=== PATIENT | female | born 1940 | race Caucasian/White ===

== ENCOUNTER 2020-09-29 14:01 | Outpatient (REF) | payer SELFPAY | END 2020-09-29 14:02 | disposition home or self-care (01) | LOC: HO.HAP 14:01 | PROVIDERS: Visit Provider Pediatrics | DX: Z46.1 Encounter for fitting and adjustment of hearing aid (principal) | CPT/HCPCS: V5267 ==

== ENCOUNTER 2021-07-12 08:52 | Outpatient (REF) | payer SELFPAY | END 2021-07-12 08:53 | disposition home or self-care (01) | LOC: HO.HAP 08:52 | PROVIDERS: Visit Provider Pediatrics | DX: Z46.2 Encounter for fitting and adjustment of other devices related to nervous system and special senses (principal) | CPT/HCPCS: V5299 ==

== ENCOUNTER 2023-07-19 08:28 | Emergency (ER) | payer MEDICARE, OTHER, SELFPAY ==
--- NOTE | ~2023-07-19 | XR_ITS ---
EXAMINATION: XR TIBIA AND FIBULA, RIGHT CLINICAL INFORMATION: Leg redness and pain COMPARISON: None available. TECHNIQUE: AP and lateral views of the right tibia and fibula were obtained. FINDINGS: Moderate osteopenia. No fracture or destructive process. Small phleboliths in the adjacent soft tissues. There is degenerative change observed at the tibiotalar junction. The knee and ankle joints are not fully included however on this study. XR/XR tibia fibula RT 2V IMPRESSION: Unremarkable exam.
--- NOTE | ~2023-07-19 | US_ITS ---
EXAMINATION: US VENOUS ULTRASOUND WITH DOPPLER LOWER EXTREMITY, RIGHT CLINICAL INFORMATION: Pain. COMPARISON: None available. TECHNIQUE: Ultrasound of the deep veins is performed from the hip to the calf with compression sonography and color and pulse Doppler assessment. Spectral analysis with color-flow imaging is performed. FINDINGS: There is normal venous compression and respiratory variation and augmented flow. The visualized common femoral vein, superficial femoral vein, profunda femoral vein, popliteal vein, and the trifurcation region shows no evidence of deep venous thrombosis. There is no significant popliteal fossa cyst. Small joint effusion noted. If the patient's symptoms persist, followup ultrasound in 5 days 7 days might be of value to exclude proximal propagation from a non-visualized calf vein. US/US venous duplex LE RT IMPRESSION: No DVT demonstrated in the right lower extremity.
--- NOTE | 2023-07-19 08:41 | ED_ITS ---
HPI - Extremity Problem General Chief complaint: Extremity Injury, Lower Stated complaint: Blood clot (?) in leg Time Seen by Provider: 07/19/23 08:30 History of Present Illness HPI Narrative: Patient is an 83-year-old female with a history of a pacemaker history of atrial fibrillation currently on Xarelto compliant with medication presented today with having increasing pain to the right leg. Moderate swelling. Patient from home. History of varicose vein in that side. History of vein stripping on that side Many years ago. No chest pain or shortness of breath no dizziness no nausea no vomiting no systemic complaints. No trauma. Related Data Allergies Allergy/AdvReac Type Severity Reaction Status Date / Time No Known Allergies Allergy Unverified 05/21/20 19:35 [No Known Allergies*] Review of Systems 2 Review of Systems: No fever no chills no chest pain or shortness of breath positive leg pain Yes all other systems are reviewed and are negative [facility] Social History Social History Advance Directives: No Advance Directives Information Provided: Yes Physical Exam 2 Vital Signs: Vital Signs: Last Vital Signs Temp 98.0 F 07/19/23 09:56 Pulse 74 07/19/23 09:56 Resp 15 07/19/23 09:56 BP 139/76 07/19/23 09:56 Pulse Ox 97 07/19/23 09:56 O2 Del Method Room Air 07/19/23 09:56 BMI result Body Mass Index 27.3 Appearance: Alert. Oriented X3. No acute distress. Eyes: Pupils equal, round and reactive to light. ENT: Pharynx normal. Neck: Normal inspection. Neck supple. No lymph nodes noted. No crepitus CVS: Normal heart rate and rhythm. Pulses normal. Normal S1 and S2 Respiratory: No respiratory distress. Breath sounds normal. No Wheezing. No rales Abdomen: Soft and nontender. No rigidity. No distention. good BS x4 Skin: Skin warm and dry. Normal skin color. Normal skin turgor. Extremities: No lower extremity edema. Neurovascular intact to all extremities. No Lacerations. No Rash. Positive varicose vein noted over in bilateral leg distal pulses intact sensation intact. No rash noted Neuro: Oriented X 3. No motor deficit. No sensory deficit. Moving all extermities. No slurred speech Medical Decision Making Medical Decision Making [facility] Narrative: Doppler of the lower extremity showed no evidence of DVT. In the setting of having atrial fibrillation on Xarelto unlikely to have DVT. Patient's INR slightly elevated showing patient compliance. X-ray of the leg did not show any acute evidence of fracture by my interpretation. I reviewed radiology's reading. Electrolytes unremarkable hemoglobin about baseline. Will discharge patient home close follow-up on an outpatient basis Differential Diagnosis Differential Diagnoses: The differential diagnosis associated with the presentation includes Fracture DVT sprain Admission/Observation Consideration of admission/observation: Escalation of care including admission/observation considered No need for admission Lab Data [facility] Lab Attestation statement: I reviewed the patient's lab results. 07/19/23 09:26 07/19/23 09:26 Labs: Lab Results 07/19/23 Range/Units 09:26 WBC 3.2 L (4.8-10.8) X10*3/uL RBC 3.91 L (4.20-5.50) X10*6/uL Hgb 11.9 L (12.0-16.0) g/dl Hct 35.8 L (37.0-47.0) % MCV 91.6 (80.0-98.0) fL MCH 30.4 (27.0-33.0) pg MCHC 33.2 (31.0-35.0) g/dl RDW 13.0 (11.0-16.0) % Plt Count 228 (160-400) X10*3/uL MPV 10.4 (9.4-12.3) fL Immature Gran % (Auto) 0.3 (0.0-0.4) % Neut % (Auto) 52.1 (45-73) % Lymph % (Auto) 30.9 (20-40) % Scott % (Auto) 11.6 H (2-11) % Eos % (Auto) 3.8 (0-4) % Baso % (Auto) 1.3 (0-2) % Lymph # (Auto) 1.0 L (1.2-4.9) X10*3/uL Scott # (Auto) 0.4 (0.1-1.2) X10*3/uL Eos # (Auto) 0.1 (0.0-0.4) X10*3/uL Baso # (Auto) 0.0 (0.0-0.2) X10*3/uL Abs Immat Gran (auto) 0.01 (0.00-0.03) X10*3/uL Absolute Neuts (auto) 1.7 L (2.0-8.3) x10*3/uL Absolute Nucleated RBC 0.000 (0.0-0.012) X10*3/uL Nucleated RBC % (auto) 0.0 (0.0-0.2) /100WBC Smear Tech's Comments VERIFIED PT 18.2 H (11.1-13.3) SEC INR 1.5 H (0.9-1.1) Sodium 138 (135-145) mmol/L Potassium 4.5 (3.3-5.1) mmol/L Chloride 104 (96-108) mmol/L Carbon Dioxide 30 H (22-29) mmol/L Anion Gap 9 L (12-20) BUN 16 (9-16) mg/dL Creatinine 0.83 (0.5-1.4) mg/dL Estim Creat Clear Calc 54.6 Estimated GFR > 60 Random Glucose 81 (60-115) mg/dL Calcium 8.8 (8.4-10.2) mg/dL Independent Interpretation I performed an independent interpretation of an: Plain X-Ray (X-ray was negative) Radiology Impression Discussion of test interpretation with radiology: I have reviewed the radiologist's reading. Independent Historian Clinical information obtained from an independent historian. History obtained from or confirmed by: Other (Family) Chronic Conditions Atrial fibrillation Discharge Plan Discharge Clinical Impression: Acute leg pain Patient Disposition: Home, Self-Care Instructions: Leg Pain (ED) Referrals: Flex Roque MD [Primary Care Provider] - 07/21/23
[2023-07-19 09:00] VITALS: BP 143/72; PULSE 65; RESP 16; TEMP 36.8; O2SAT 97; BMI 27.3
[2023-07-19 09:40] LABS: Basophils Percent Auto 1.3 % (0-2); Eosinophils Absolute Auto 0.1 X10*3/uL (0.0-0.4); Eosinophils Percent Auto 3.8 % (0-4); Hematocrit 35.8 % (37.0-47.0); Hemoglobin 11.9 g/dl (12.0-16.0); Imm Gran Abs Auto 0.01 X10*3/uL (0.00-0.03); Imm Gran Pct Auto 0.3 % (0.0-0.4); Lymphocytes Percent Auto 30.9 % (20-40); MANUAL DIFF FLAG SCAN; Mean Corpuscular HGB Conc 33.2 g/dl (31.0-35.0); Mean Corpuscular Hemoglobin 30.4 pg (27.0-33.0); Mean Corpuscular Volume 91.6 fL (80.0-98.0); Mean Platelet Volume 10.4 fL (9.4-12.3); Monocytes Absolute Auto 0.4 X10*3/uL (0.1-1.2); Monocytes Percent Auto 11.6 % (2-11); Neutrophils Absolute Auto 1.7 x10*3/uL (2.0-8.3); Neutrophils Percent Auto 52.1 % (45-73); Platelet Count 228 X10*3/uL (160-400); Red Blood Count 3.91 X10*6/uL (4.20-5.50); SCAN SMEAR FLAG 1; White Blood Count 3.2 X10*3/uL (4.8-10.8)
[2023-07-19 09:47] LABS: INTERNATIONAL NORM RATIO 1.5 (0.9-1.1); Prothrombin Time 18.2 SEC (11.1-13.3)
[2023-07-19 09:49] LABS: Anion Gap 9 (12-20); Blood Urea Nitrogen 16 mg/dL (9-16); Calcium 8.8 mg/dL (8.4-10.2); Carbon Dioxide 30 mmol/L (22-29); Chloride 104 mmol/L (96-108); Creatinine Clr Calc Pharmacy 54.6; Estimated Glomerular Filt Rate > 60; Glucose Random 81 mg/dL (60-115); Potassium 4.5 mmol/L (3.3-5.1); Sodium 138 mmol/L (135-145)
[2023-07-19 09:56] VITALS: BP 139/76; PULSE 74; RESP 15; TEMP 36.7; O2SAT 97
[2023-07-19 10:02] LABS: SLIDE REVIEW VERIFIED
== END 2023-07-19 10:25 | disposition home or self-care (01) ==
PROVIDERS: Emergency Provider Emergency Medicine Emergency Medical Services; PCP Pediatrics
DX: M79.604 Pain in right leg (principal); R60.0 Localized edema; I48.91 Unspecified atrial fibrillation; Z79.01 Long term (current) use of anticoagulants; Z79.899 Other long term (current) drug therapy
CPT/HCPCS: 36415; 73590; 80048; 85025; 85610; 93971; 99283; 99284

== ENCOUNTER 2023-08-21 16:29 | Emergency (ER) | payer MEDICARE, OTHER, SELFPAY ==
--- NOTE | ~2023-08-21 | CT_ITS ---
EXAMINATION: CT HEAD WITHOUT CONTRAST CT FACIAL BONES WITHOUT CONTRAST CT CERVICAL SPINE WITHOUT CONTRAST CLINICAL INFORMATION: Fall. Head strike. COMPARISON: None available. TECHNIQUE: Contiguous axial imaging was performed of the head, facial bones and cervical spine vertex without intravenous administration of contrast. Sagittal and coronal reformatted images also obtained. This CT examination was performed using dose optimization techniques as appropriate, variously including the following: *Automated exposure control *Adjustment of mA and/or kV according to patient size (this includes techniques or standardized protocols for targeted exams where dose is matched to indication/reason for exam; i.e. extremities or head) *Use of iterative reconstruction technique DLP: 1188 mGy-cm FINDINGS: The lateral, third and fourth ventricles are normally outlined. The cortical sulci and basal cisterns are normally outlined as well. There is mild bilateral periventricular and central white matter diminished attenuation. There is no acute territorial defect, hemorrhage or midline shift. Calvarium: Intact. Facial bones: No fracture is seen. There is a left sphenoid sinus opacity with sinus sclerosis. There is right forehead soft tissue swelling with a laceration. The soft tissues are otherwise unremarkable. Cervical spine: The alignment is within normal limits. There is diffuse krwc-tj-naxubzuk cervical disc degenerative change with loss of disc space, endplate change and posterior osteophytes associated with diffuse facet osteoarthritic atrophy change with multilevel mild spinal canal and hngl-de-vtwfozlw neuroforaminal narrowing. No fracture. The soft tissues are unremarkable. The upper lung gonzalez are clear. CT/CT facial bones wo IV con IMPRESSION: 1. No acute intracranial finding. 2. There is mild bilateral periventricular and central white matter diminished attenuation, commonly associated with chronic microvascular ischemic disease. 3. There is right forehead soft tissue swelling with a laceration. No acute fracture or dislocation is seen. 4. There is chronic left sphenoid sinusitis. 5. There is diffuse cervical spondylosis. No acute fracture or spondylolisthesis is seen.
--- NOTE | ~2023-08-21 | CT_ITS ---
EXAMINATION: CT HEAD WITHOUT CONTRAST CT FACIAL BONES WITHOUT CONTRAST CT CERVICAL SPINE WITHOUT CONTRAST CLINICAL INFORMATION: Fall. Head strike. COMPARISON: None available. TECHNIQUE: Contiguous axial imaging was performed of the head, facial bones and cervical spine vertex without intravenous administration of contrast. Sagittal and coronal reformatted images also obtained. This CT examination was performed using dose optimization techniques as appropriate, variously including the following: *Automated exposure control *Adjustment of mA and/or kV according to patient size (this includes techniques or standardized protocols for targeted exams where dose is matched to indication/reason for exam; i.e. extremities or head) *Use of iterative reconstruction technique DLP: 1188 mGy-cm FINDINGS: The lateral, third and fourth ventricles are normally outlined. The cortical sulci and basal cisterns are normally outlined as well. There is mild bilateral periventricular and central white matter diminished attenuation. There is no acute territorial defect, hemorrhage or midline shift. Calvarium: Intact. Facial bones: No fracture is seen. There is a left sphenoid sinus opacity with sinus sclerosis. There is right forehead soft tissue swelling with a laceration. The soft tissues are otherwise unremarkable. Cervical spine: The alignment is within normal limits. There is diffuse jrdn-yy-ixdjjsfg cervical disc degenerative change with loss of disc space, endplate change and posterior osteophytes associated with diffuse facet osteoarthritic atrophy change with multilevel mild spinal canal and dkin-wn-eycrxfaa neuroforaminal narrowing. No fracture. The soft tissues are unremarkable. The upper lung gonzalez are clear. CT/CT head/brain wo IV con IMPRESSION: 1. No acute intracranial finding. 2. There is mild bilateral periventricular and central white matter diminished attenuation, commonly associated with chronic microvascular ischemic disease. 3. There is right forehead soft tissue swelling with a laceration. No acute fracture or dislocation is seen. 4. There is chronic left sphenoid sinusitis. 5. There is diffuse cervical spondylosis. No acute fracture or spondylolisthesis is seen.
--- NOTE | ~2023-08-21 | CT_ITS ---
EXAMINATION: CT HEAD WITHOUT CONTRAST CT FACIAL BONES WITHOUT CONTRAST CT CERVICAL SPINE WITHOUT CONTRAST CLINICAL INFORMATION: Fall. Head strike. COMPARISON: None available. TECHNIQUE: Contiguous axial imaging was performed of the head, facial bones and cervical spine vertex without intravenous administration of contrast. Sagittal and coronal reformatted images also obtained. This CT examination was performed using dose optimization techniques as appropriate, variously including the following: *Automated exposure control *Adjustment of mA and/or kV according to patient size (this includes techniques or standardized protocols for targeted exams where dose is matched to indication/reason for exam; i.e. extremities or head) *Use of iterative reconstruction technique DLP: 1188 mGy-cm FINDINGS: The lateral, third and fourth ventricles are normally outlined. The cortical sulci and basal cisterns are normally outlined as well. There is mild bilateral periventricular and central white matter diminished attenuation. There is no acute territorial defect, hemorrhage or midline shift. Calvarium: Intact. Facial bones: No fracture is seen. There is a left sphenoid sinus opacity with sinus sclerosis. There is right forehead soft tissue swelling with a laceration. The soft tissues are otherwise unremarkable. Cervical spine: The alignment is within normal limits. There is diffuse eqgp-jr-jejlzcjh cervical disc degenerative change with loss of disc space, endplate change and posterior osteophytes associated with diffuse facet osteoarthritic atrophy change with multilevel mild spinal canal and axrm-oc-zdmdfghw neuroforaminal narrowing. No fracture. The soft tissues are unremarkable. The upper lung gonzalez are clear. CT/CT cervical spine wo IV con IMPRESSION: 1. No acute intracranial finding. 2. There is mild bilateral periventricular and central white matter diminished attenuation, commonly associated with chronic microvascular ischemic disease. 3. There is right forehead soft tissue swelling with a laceration. No acute fracture or dislocation is seen. 4. There is chronic left sphenoid sinusitis. 5. There is diffuse cervical spondylosis. No acute fracture or spondylolisthesis is seen.
[2023-08-21 16:37] VITALS: BP 170/90; PULSE 65; O2SAT 100
[2023-08-21 16:46] VITALS: BP 170/71; PULSE 62; RESP 18; TEMP 36.6; O2SAT 95; BMI 25.5
[2023-08-21 16:47] VITALS: BP 170/71; PULSE 59; RESP 18; TEMP 36.5; O2SAT 98; BMI 25.5
--- NOTE | 2023-08-21 16:55 | PC.NURSE ---
PT BIBA PT states she slipped and fell while throwing a ball with her dog. + head strike, No LOC, laceration to right eyebrow- bleeding controlled at this time. PT on blood thinner and in a c-collar. Informed CAITLYN of traige information. waiting new orders.
--- NOTE | 2023-08-21 16:58 | ECG_ITS ---
Test Reason : FALL Blood Pressure : / mmHG Vent. Rate : 083 BPM Atrial Rate : 083 BPM P-R Int : 160 ms QRS Dur : 094 ms QT Int : 340 ms P-R-T Axes : 074 -33 037 degrees QTc Int : 399 ms Normal sinus rhythm Left axis deviation Abnormal ECG When compared with ECG of 20-JUL-2018 14:36, Vent. rate has increased BY 28 BPM QT has shortened Referred By: Gita Archer Electronically Signed By:JOJO NOLASCO MD
--- NOTE | 2023-08-21 17:03 | ED_ITS ---
HPI - Fall General Chief Complaint: Fall Stated Complaint: FALL HEAD LAC + THINNERS Time Seen by Provider: 08/21/23 16:59 Source: patient and EMS Mode of arrival: EMS Limitations: no limitations History of Present Illness HPI Narrative: Patient is an 83-year-old female who presents emergency department via EMS after an unwitnessed fall from a standing position with head strike onto the cement. She states that she was attempting to play fetch with her dog outside, she attempted to remove the ball from a wand of some sort, and upon pulling she lost her balance resulting in the fall. She reports a log-standing history of balance issues . Patient used her life alert button and EMS was able to help her, placed in hard cervical spine collar. There was reportedly no loss of consciousness. She is anticoagulated with Xarelto due to A-fib. Laceration to the right eyebrow, small amount of active bleeding, with localized pain. Daughters present at bedside at this time, reports that patient is a reliable historian. Related Data Previous Rx's Medication Instructions Recorded cephalexin 500 mg capsule 500 mg PO QID #27 caps 08/21/23 Allergies Allergy/AdvReac Type Severity Reaction Status Date / Time No Known Allergies Allergy Unverified 08/21/23 16:41 Review of Systems 2 Review of Systems: Yes all other systems are reviewed and are negative PMFSH Past Medical History Attestation statement: The following information was validated with the patient. Source: old records reviewed Social History Social History Advance Directives: Yes Advance Directives on File: No Physical Exam 2 Vital Signs: Vital Signs: Last Vital Signs Temp 97.7 F 08/21/23 16:47 Pulse 59 08/21/23 16:47 Resp 18 08/21/23 16:47 BP 170/71 H 08/21/23 16:47 Pulse Ox 98 08/21/23 16:47 O2 Del Method Room Air 08/21/23 16:47 BMI result Body Mass Index 25.5 Appearance: Alert.?Oriented to person, place and time. No acute distress.?Normal affect. Head: Normocephalic. 7cm linear laceration above right brow. Eyes: Pupils equal, round and reactive to light. EOMI. Conjunctiva and sclera normal? No Ballard sign noted. No raccoon eyes noted ENT: No septal hematoma, nares patent bilaterally. Resolved epistaxis from left nare. External auditory canal normal tympanic membrane pearly quinones and intact bilaterally. Dentition normal, no fractured teeth. No lesions or lacerations of oropharynx. Uvula midline. Moist mucous membranes. Neck: Normal inspection.? Neck supple.??No palpable midline tenderness, step- off, deformities. CVS: Heart sounds normal. Normal heart rate and rhythm.? Pulses normal.?? Respiratory: No respiratory distress.? Lung sounds clear to auscultation bilaterally?? Abdomen: Soft and non-tender. Normoactive bowel sounds. ?? Skin: Skin warm and dry.? Normal skin color.? Normal skin turgor.?? Extremities: No lower extremity edema.? Neuro: Moves all extremities spontaneously. Sensation intact bilaterally. CN II- XII intact. No focal neuro deficits. Course Reevaluation(s) Reevaluation #1: Ambulated with steady gait to the restroom. CT of the head cervical spine and facial bones without acute etiology. Serum labs are overall unremarkable. Stable for discharge home. Outpatient follow-up with primary care provider. Reviewed worrisome signs and symptoms that would warrant re-evaluation emergency department. All questions answered. Time: 19:37 Medications Administered Discontinued Medications Generic Name Dose Route Start Last Admin Trade Name Isak PRN Reason Stop Dose Admin Lidocaine/Epinephrine 10 ml 08/21/23 17:44 08/21/23 19:30 Lidocaine Hcl 1%/Epi 1:100,000 10 Ml Vial SUBCUT 08/21/23 17:45 10 ml ONCE ONE Administration Procedures Laceration Laceration 1: Site: other (Forehead) Side (If applicable): right Size (cm): 7 Description: linear Depth: simple, single layer Local Anesthetic: lidocaine 1% and with epi Amount of anesthesia used (mL): 3 Pre-repair: wound explored, irrigated extensively and deep structures intact Skin layer closed with: nylon Size (cm): 5-0 Number of sutures: 7 Technique: simple, interrupted Medical Decision Making Medical Decision Making MDM Narrative: Patient is an 83 year old female past medical history of atrial fibrillation anticoagulated on Xarelto, hypertension, gout, hyperlipidemia presenting to the emergency department for evaluation after a fall as per HPI. Patient does endorse that she has unsteady balance at baseline, she was not using her cane at the time that this occurred. sHe denies any loss of consciousness. However given she is anticoagulated mode of injury will obtain CT of the head and neck as well orbits to exclude ICH, SDH, fracture, subluxation. Laceration will require repair, see procedural note for further details. Differential Diagnosis Differential Diagnoses: The differential diagnosis associated with the presentation includes (ICH, SDH, uncontrolled bleeding, laceration, concussion) Admission/Observation Consideration of admission/observation: Escalation of care including admission/observation considered (See narrative above for further detail) Lab Data 08/21/23 17:52 08/21/23 17:52 Labs: Lab Results 08/21/23 Range/Units 17:52 WBC 5.5 (4.8-10.8) X10*3/uL RBC 4.58 (4.20-5.50) X10*6/uL Hgb 13.8 (12.0-16.0) g/dl Hct 42.1 (37.0-47.0) % MCV 91.9 (80.0-98.0) fL MCH 30.1 (27.0-33.0) pg MCHC 32.8 (31.0-35.0) g/dl RDW 13.2 (11.0-16.0) % Plt Count 229 (160-400) X10*3/uL MPV 11.0 (9.4-12.3) fL Immature Gran % (Auto) 0.2 (0.0-0.4) % Neut % (Auto) 75.1 H (45-73) % Lymph % (Auto) 14.1 L (20-40) % Laporte % (Auto) 8.3 (2-11) % Eos % (Auto) 1.6 (0-4) % Baso % (Auto) 0.7 (0-2) % Lymph # (Auto) 0.8 L (1.2-4.9) X10*3/uL [place] # (Auto) 0.5 (0.1-1.2) X10*3/uL Eos # (Auto) 0.1 (0.0-0.4) X10*3/uL Baso # (Auto) 0.0 (0.0-0.2) X10*3/uL Abs Immat Gran (auto) 0.01 (0.00-0.03) X10*3/uL Absolute Neuts (auto) 4.2 (2.0-8.3) x10*3/uL Absolute Nucleated RBC 0.000 (0.0-0.012) X10*3/uL Nucleated RBC % (auto) 0.0 (0.0-0.2) /100WBC PT 14.9 H (11.1-13.3) SEC INR 1.2 H (0.9-1.1) Sodium 136 (135-145) mmol/L Potassium 4.7 (3.3-5.1) mmol/L Chloride 100 (96-108) mmol/L Carbon Dioxide 27 (22-29) mmol/L Anion Gap 14 (12-20) BUN 17 H (9-16) mg/dL Creatinine 0.85 (0.5-1.4) mg/dL Estim Creat Clear Calc 51.7 Estimated GFR > 60 Random Glucose 105 (60-115) mg/dL Calcium 9.5 D (8.4-10.2) mg/dL Total Bilirubin 0.4 (0.0-1.0) mg/dL AST 26 (5-31) U/L ALT 13 (0-31) U/L Alkaline Phosphatase 80 (39-117) U/L Total Protein 7.5 (6.5-8.0) g/dL Albumin 4.6 (3.5-5.0) g/dL COVID-19 (KADE) Negative (Negative) COVID-19 Clin Com See Note Influenza Type A (DEXTER) Negative (Negative) Influenza Type B (DEXTER) Negative (Negative) Influenza A & B Note See Note Independent Interpretation I performed an independent interpretation of an: CT Scan Radiology Impression Discussion of test interpretation with radiology: I have reviewed the radiologist's reading. Radiologist Impression: CT/CT cervical spine wo IV con IMPRESSION: 1. No acute intracranial finding. 2. There is mild bilateral periventricular and central white matter diminished attenuation, commonly associated with chronic microvascular ischemic disease. 3. There is right forehead soft tissue swelling with a laceration. No acute fracture or dislocation is seen. 4. There is chronic left sphenoid sinusitis. 5. There is diffuse cervical spondylosis. No acute fracture or spondylolisthesis is seen. Independent Historian Clinical information obtained from an independent historian. History obtained from or confirmed by: EMS and Other (Daughter present who confirms past medical history) Discharge Plan Discharge Clinical Impression: Acute head injury without loss of consciousness Qualifiers: Encounter type: initial encounter Qualified Code(s): S09.90XA - Unspecified injury of head, initial encounter Forehead laceration Qualifiers: Encounter type: initial encounter Qualified Code(s): S01.81XA - Laceration without foreign body of other part of head, initial encounter Instructions: Laceration (ED), Head Injury (ED) Additional Instructions: 7 Sutures will need to be removed in 5 days, you may return back to the emergency department or follow-up with your primary care provider for removal. Complete the entire course of antibiotics as prescribed. Contact your primary care provider to arrange for a follow-up visit. Return back to emergency department any new or worsening symptoms or concerns. Prescriptions: New cephalexin 500 mg capsule 500 mg PO QID Qty: 27 0RF Referrals: Physician,Nonstaff [Primary Care Provider] -
[2023-08-21 17:58] LABS: MANUAL DIFF FLAG NO
[2023-08-21 18:00] VITALS: BP 170/71; PULSE 59; RESP 18; TEMP 36.5; O2SAT 98
[2023-08-21 18:06] LABS: Basophils Percent Auto 0.7 % (0-2); Eosinophils Absolute Auto 0.1 X10*3/uL (0.0-0.4); Eosinophils Percent Auto 1.6 % (0-4); Hematocrit 42.1 % (37.0-47.0); Hemoglobin 13.8 g/dl (12.0-16.0); INTERNATIONAL NORM RATIO 1.2 (0.9-1.1); Imm Gran Abs Auto 0.01 X10*3/uL (0.00-0.03); Imm Gran Pct Auto 0.2 % (0.0-0.4); Lymphocytes Absolute Auto 0.8 X10*3/uL (1.2-4.9); Lymphocytes Percent Auto 14.1 % (20-40); Mean Corpuscular HGB Conc 32.8 g/dl (31.0-35.0); Mean Corpuscular Hemoglobin 30.1 pg (27.0-33.0); Mean Corpuscular Volume 91.9 fL (80.0-98.0); Monocytes Absolute Auto 0.5 X10*3/uL (0.1-1.2); Monocytes Percent Auto 8.3 % (2-11); Neutrophils Absolute Auto 4.2 x10*3/uL (2.0-8.3); Neutrophils Percent Auto 75.1 % (45-73); Platelet Count 229 X10*3/uL (160-400); Prothrombin Time 14.9 SEC (11.1-13.3); Red Blood Count 4.58 X10*6/uL (4.20-5.50); Red Cell Distribution Width 13.2 % (11.0-16.0); White Blood Count 5.5 X10*3/uL (4.8-10.8)
[2023-08-21 18:15] LABS: Alanine Aminotransferase 13 U/L (0-31); Albumin Level 4.6 g/dL (3.5-5.0); Alkaline Phosphatase 80 U/L (39-117); Anion Gap 14 (12-20); Aspartate Amino Transferase 26 U/L (5-31); Bilirubin Total 0.4 mg/dL (0.0-1.0); Blood Urea Nitrogen 17 mg/dL (9-16); Calcium 9.5 mg/dL (8.4-10.2); Carbon Dioxide 27 mmol/L (22-29); Chloride 100 mmol/L (96-108); Creatinine Clr Calc Pharmacy 51.7; Estimated Glomerular Filt Rate > 60; Glucose Random 105 mg/dL (60-115); Potassium 4.7 mmol/L (3.3-5.1); Sodium 136 mmol/L (135-145); Total Protein 7.5 g/dL (6.5-8.0)
[2023-08-21 18:18] LABS: IDNOW Serial# 9DB6401D; Influenza A Negative (Negative); Influenza B2 Negative (Negative)
[2023-08-21 18:21] LABS: COVID-19 Test Negative (Negative); IDNOW Serial# 6674DD1D
[2023-08-21] MEDS: Lidocaine HCl 1%/Epi 1:100,000 10 ML VIAL SUBCUT (19:30)
[2023-08-21 19:38] VITALS: BP 144/77; PULSE 119; RESP 16; TEMP 36.6; O2SAT 99
[2023-08-21] MEDS: Diphth,Pertus(ACell),Tet Adult 0.5 ML SYRINGE IM (19:39)
[2023-08-21] MEDS: cephALEXin 500 MG CAPSULE PO (19:41)
== END 2023-08-21 19:57 | disposition home or self-care (01) ==
PROVIDERS: Nurse Practitioner Family; Emergency Provider Internal Medicine
DX: S01.81XA Laceration without foreign body of other part of head, initial encounter (principal); S00.91XA Abrasion of unspecified part of head, initial encounter; R51.9 Headache, unspecified; R94.31 Abnormal electrocardiogram [ECG] [EKG]; M54.2 Cervicalgia; I48.91 Unspecified atrial fibrillation; W01.10XA Fall on same level from slipping, tripping and stumbling with subsequent striking against unspecified object, initial encounter; Y93.9 Activity, unspecified; Y92.9 Unspecified place or not applicable; Y99.9 Unspecified external cause status; Z20.822 Contact with and (suspected) exposure to COVID-19; Z20.828 Contact with and (suspected) exposure to other viral communicable diseases; Z23 Encounter for immunization; Z79.899 Other long term (current) drug therapy; Z79.01 Long term (current) use of anticoagulants
CPT/HCPCS: 12053; 70450; 70486; 72125; 80053; 85025; 85610; 87502; 87635; 90471; 90715; 93005; 99284

== ENCOUNTER → 2023-08-21 16:58 | Outpatient (BNV) | payer MEDICARE, OTHER, SELFPAY | PROVIDERS: Emergency Provider Internal Medicine; Visit Provider Internal Medicine Cardiovascular Disease | DX: R94.31 Abnormal electrocardiogram [ECG] [EKG] (principal) | CPT/HCPCS: 93010 ==

== ENCOUNTER 2023-09-02 08:13 | Observation (INO) | payer MEDICARE, OTHER, SELFPAY ==
--- NOTE | ~2023-09-02 | XR_ITS ---
EXAMINATION: XR ABDOMEN KUB CLINICAL INDICATION: Constipated COMPARISON: None available. TECHNIQUE: AP view of the abdomen. FINDINGS: The bowel gas pattern is normal without evidence of ileus or obstruction. Large stool burden is noted in the descending colon and rectosigmoid colon. Air is noted in the ascending colon and transverse colon. No evidence of small bowel dilatation. Multiple phleboliths are noted in the pelvis bilaterally. 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 Spondylosis in the visualized spine. XR/XR KUB IMPRESSION: Large stool burden in the descending colon and rectosigmoid colon without evidence of focal bowel obstruction.
[2023-09-02 08:19] VITALS: BP 119/70; PULSE 68; RESP 20; TEMP 36.1; O2SAT 97; BMI 26.3
[2023-09-02 10:01] VITALS: BP 136/80; PULSE 82; RESP 18; O2SAT 96
--- NOTE | 2023-09-02 10:04 | PC.NURSE ---
Pt is a&ox4 reoporting no BM for 9days, states she tried milk of mag, laxatives, and has no relief. +bowel sounds in all 4 quadrants, nausea, and abd tender on palpation, reports intermittent abd pain. Uses walker at baseline.
--- NOTE | 2023-09-02 10:14 | ED.GENADULT ---
HPI - General Adult General Chief complaint: Abdominal Pain Stated complaint: fever, vomiting, COVID + 08/28 Time Seen by Provider: 09/02/23 10:06 Source: patient and family (daughter) Mode of arrival: ambulatory Limitations: no limitations History of Present Illness HPI narrative: 83 year old COVID+ female with pmhx significant for atrial fibrilation on xarelto presents to the ED today for evaluation of stool impaction. Daughter at bedside. Patient states that she has not passed a bowel movement in 9 days. Attempted milk a magnesia enema at home without relief. Admits to testing positive for COVID at home 5 days ago. Denies fever, chills, abdominal pain, nausea vomiting, hematemesis, dysuria, hematuria. Related Data Home Medications Medication Instructions Recorded Confirmed amiodarone 100 mg tablet 100 mg PO DAILY 09/02/23 amlodipine 5 mg tablet 5 mg PO DAILY 09/02/23 citalopram 10 mg tablet 10 mg PO DAILY 09/02/23 colchicine 0.6 mg tablet 0.6 mg PO DAILY 09/02/23 gabapentin 300 mg capsule 300 mg PO DAILY 09/02/23 rivaroxaban 20 mg tablet (Xarelto) 20 mg PO DAILY 09/02/23 simvastatin 20 mg tablet 20 mg PO BEDTIME 09/02/23 solifenacin 10 mg tablet 10 mg PO DAILY 09/02/23 telmisartan 40 mg tablet 40 mg PO DAILY 09/02/23 Allergies Allergy/AdvReac Type Severity Reaction Status Date / Time No Known Allergies Allergy Verified 09/02/23 08:22 Review of Systems Review of Systems: Constitutional: No fever, chills, fatigue, night sweats, weight changes ENT/Mouth: No ear pain, hearing loss, nasal congestion, sinus pain, rhinorrhea, sore throat Eyes: No eye pain, swelling, redness, vision changes, discharge Cardio: No chest pain, palpitations, BECERRA, orthopnea, peripheral edema Pulm: No SOB, cough, sputum, wheezing, dyspnea, hemoptysis GI: No nausea, vomiting, hematemesis, abdominal pain, diarrhea, +constipation, No hematochezia, melena : No irregular bleeding, dysuria, frequency, urgency, hesitancy, hematuria, flank pain, urinary flow changes, urinary incontinence or retention MSK: No back pain, neck pain, joint pain, myalgias Skin: No lesions, rashes Neuro: No weakness, numbness, paresthesias, LOC, dizziness, headache All other systems reviewed and are negative. [facility] Past Medical History Attestation statement: The following information was validated with the patient. Source: old records reviewed and nursing notes reviewed Social History Social History Smoked in Last 30 Days: No Use of substances other than those prescribed or required for medical reasons: No Advance Directives: No Advance Directives Information Provided: Yes Physical Exam ED Vital Signs: Vital Signs - 24 hr 09/02/23 08:19 09/02/23 10:01 09/02/23 15:16 Temperature 96.9 F Pulse Rate 68 82 71 Respiratory Rate 20 18 16 Blood Pressure 119/70 136/80 113/78 Pulse Oximetry 97 96 97 Oxygen Delivery Method Room Air Room Air Room Air BMI result Body Mass Index 26.3 Vital signs stable Const General: cooperative, healthy appearing, comfortable, no acute distress, alert and awake Orientation/consciousness: patient oriented x3 Limitations: no limitations HENMT Head: Yes normal to inspection Eyes General: appearance normal, both eyes and all related structures Conjunctivae: conjunctivae normal Sclerae: sclerae normal Pupils: Equal, round and reactive pupils present Resp Effort & Inspection: normal respiratory effort Auscultation: clear to auscultation bilaterally Cardio Rate: regular rate Rhythm: regular rhythm GI Other: + abdomen firm, distended, hypoactive bowel sounds. Digital disimpaction performed with [employer] present in room to customs manager. Normal rectal sphincter tone. No external masses or lesions. Hard palpable stool in rectal vault. Removed a large amount of hard stool from rectal vault. General: Yes no CVA tenderness Back/Spine/Pelvis Back: no CVA tenderness Skin General skin exam: no rashes or lesions noted Neuro General: patient oriented x3, gait normal and moves all extremities Cranial nerves: Yes Equal, round and reactive pupils present Extrem General: Yes normal to inspection Course Course Course Narrative: 1050-- rectal disimpaction performed with [employer] in room to chaparone/ assist. Large amount of stool removed from rectal vault. There is still stool palpable with my finger tip however I am unable to remove any more stool as it is out of reach. Patient tolerated procedure well. Small amount of blood noted in stool likely secondary to disimpaction. Enema ordered. 1302-- Per RN, patient has still not passed BM after enema. Lactulose and senna ordered. Will continue to monitor. 1600-- Patient is still unable to pass bowel movement despite enema, lactulose, senna. Used shared decision making to discuss disposition with patient and patient's daughter. They do not feel comfortable with patient being discharged home with bowel regimen. Patient's daughter feels as though patient should stay here for continued monitoring. Will discuss admission with hospitalist. 1616-- Patient accepted for admission. Hospitalist JAIME Priest to put in admission orders. Medications Administered Discontinued Medications Generic Name Dose Route Start Last Admin Trade Name Freq PRN Reason Stop Dose Admin Lactulose 20 gm 09/02/23 13:02 09/02/23 13:36 Lactulose 20 Gm/30 Ml Solution PO 09/02/23 13:03 20 gm ONCE ONE Administration Senna 7.5 ml 09/02/23 13:02 09/02/23 13:37 Senna [place] Extract Oral Syrup 15 Ml Syrup PO 09/02/23 13:03 7.5 ml ONCE ONE Administration Sodium Biphosphate/Sodium Phosphate 133 ml 09/02/23 10:48 09/02/23 10:58 Sodium Phosphate,[place]-Dibasic 133 Ml Enema NV 09/02/23 10:49 133 ml ONCE ONE Administration Procedures Rectal Disimpaction Time out performed rectal disimpaction: Yes Indication: fecal impaction Procedural Sedation: No Sedation/Analgesia: none Technique: manual disimpaction with gloved finger Result: significant stool output Patient Tolerated Procedure: well Complications: pain Medical Decision Making Medical Decision Making MDM Narrative: 83 year old COVID+ female with pmhx significant for atrial fibrilation on xarelto presents to the ED today for evaluation of stool impaction. Vital signs stable. Patient is afebrile. She is nontoxic appearing and in no acute distress. On exam, abdomen firm, distended, hypoactive bowel sounds. On RANULFO, no external hemorrhoids. No palpable internal masses. Hard stool palpated in rectal vault, large portion of this was removed via digital disimpaction. Clinical concern for constipation, stool impaction, SBO. Unlikely diverticulitis, diverticulosis, colonic mass, ischemic bowel, acute abdomen. KUB ordered. Differential Diagnosis Differential Diagnoses: The differential diagnosis associated with the presentation includes As above. Admission/Observation Consideration of admission/observation: Escalation of care including admission/observation considered This patient with large stool burden in inability to pass a bowel movement will be admitted. Consult Healthcare Provider Management of the patient was discussed with: Hospitalist (Hospitalist PA, Jennifer Priest) Independent Interpretation I performed an independent interpretation of an: Plain X-Ray Interpretation: I personally reviewed KUB and agree with radiologist's interpretation. Radiology Impression Discussion of test interpretation with radiology: I have reviewed the radiologist's reading. Radiologist Impression: XR KUB IMPRESSION: Large stool burden in the descending colon and rectosigmoid colon without evidence of focal bowel obstruction. Independent Historian Clinical information obtained from an independent historian. History obtained from or confirmed by: Other (daughter) External Record Review External record reviewed: Inpatient record Prescription Management I considered prescription management with: Other (Laxative) Social Determinants Patient?s care significantly limited by Social Determinants of Health including: Other Social Determinant of Health Critical Care Time Critical Care Time Critical Care Time: Yes Total Critical Care Time: 60 Attestation: Critical care time in the amount of 60 minutes has been provided to the patient in terms of direct patient care, frequent reevaluation, consultation with hospitalist, review and interpretation of medical data and results, and management of potentially life-threatening conditions. This is all outside of any medical procedures. Discharge Plan Discharge Clinical Impression: Fecal impaction in rectum Patient Disposition: Admitted As Inpatient Prescriptions: No Action citalopram 10 mg tablet 10 mg PO DAILY amlodipine 5 mg tablet 5 mg PO DAILY simvastatin 20 mg tablet 20 mg PO BEDTIME telmisartan 40 mg tablet 40 mg PO DAILY gabapentin 300 mg capsule 300 mg PO DAILY colchicine 0.6 mg tablet 0.6 mg PO DAILY amiodarone 100 mg tablet 100 mg PO DAILY solifenacin 10 mg tablet 10 mg PO DAILY Xarelto 20 mg tablet 20 mg PO DAILY
[2023-09-02] MEDS: Sodium Phosphate,Mono-Dibasic 133 ML ENEMA PR ×2 (10:58→18:15)
[2023-09-02] MEDS: Lactulose 20 GM/30 ML SOLUTION PO ×2 (13:36→18:15)
[2023-09-02 15:16] VITALS: BP 113/78; PULSE 71; RESP 16; O2SAT 97
--- NOTE | 2023-09-02 16:45 | PHA.MEDREC ---
Pharmacy Consult ? Medication Reconciliation Pharmacy has completed the medication reconciliation. Patient had med list and accompanied by family which helped confirm meds.
--- NOTE | 2023-09-02 17:30 | P.HPHOSP_ITS ---
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 She takes MiraLax on a daily basis and has also been using milk of magnesia and performed enemas at home without any bowel movement. She is reporting intermittent moderate diffuse abdominal discomfort rated a 5/10 without radiation. Reports lying flat at rest relieves pain but every time she tries to move her bowels, this brings on the pain. She has not noted any bright red blood per rectum, no nausea or vomiting. No lightheadedness, shortness of breath, chest pain. no fevers or chills. Has mild cough related to COVID-19. In the ED, vital signs stable, no hypoxia. Labs pending. KUB shows large stool burden in the descending colon and retro sigmoid colon without evidence of focal bowel obstruction. She was given fleets enema x1 and 20 mg lactulose in the ED. Manual disimpaction performed bedside with large amount of hard stool removed. She was also given 17 g senna. She tells me that she was able to have a very small soft bowel movement following the disimpaction but still feels very constipated and bloated. Review of Systems 2 Review of Systems: General: No fevers, malaise, unintentional weight loss HEENT: No sore throat, nasal congestion, rhinorrhea, sinus pain, ear pain Cardiovascular: No chest pain, palpitations, or leg edema Respiratory: +cough. No shortness of breath, wheezing GI: +abd pain, +constipation/obstipation. No nausea, vomiting, diarrhea, melena, hematochezia : No dysuria, hematuria, increased urinary frequency, decreased urinary output MSK: No myalgia, back pain Neuro: No headaches, weakness, paresthesias Skin: No rashes or lesions PMFSH Social History Smoked in Last 30 Days: No Use of substances other than those prescribed or required for medical reasons: No Advance Directives: No Advance Directives Information Provided: Yes Meds Allergies Allergy/AdvReac Type Severity Reaction Status Date / Time No Known Allergies Allergy Verified 09/02/23 08:22 Active Medications: Current Medications Acetaminophen (Acetaminophen 325 Mg Tablet) 650 mg PO Q6H PRN PRN Reason: Pain, Mild (Pain Scale 1-3) Docusate Sodium (Docusate Sodium 100 Mg Capsule) 100 mg PO BID [facility] Guaifenesin (Guaifenesin 200 Mg/10 Ml 10 Ml Liquid) 10 ml PO Q6H PRN PRN Reason: Cough Ondansetron HCl (Ondansetron Hcl 4 Mg/2 Ml Vial) 4 mg IVPUSH Q8H PRN PRN Reason: Nausea and Vomiting Sodium Chloride (0.9 % Sodium Chloride Flush 3 Ml Syringe) 3 ml IVFLUSH QSHIFT [facility] Home Medications Medication Instructions Recorded Confirmed Last Taken Type amiodarone 100 mg tablet 100 mg PO BEDTIME 09/02/23 09/02/23 09/01/23 History amlodipine 5 mg tablet 5 mg PO DAILY 09/02/23 09/02/23 09/02/23 09:00 History cholecalciferol (vitamin D3) 125 125 mcg PO DAILY 09/02/23 09/02/23 09/02/23 09:00 History mcg (5,000 unit) tablet (Vitamin D3) citalopram 10 mg tablet 10 mg PO DAILY 09/02/23 09/02/23 09/02/23 09:00 History gabapentin 300 mg capsule 300 mg PO BEDTIME 09/02/23 09/02/23 09/01/23 History polyethylene glycol 3350 17 gram 17 g PO DAILY 09/02/23 09/02/23 09/02/23 09:00 History oral powder packet (Miralax) rivaroxaban 20 mg tablet (Xarelto) 20 mg PO DAILY@1800 09/02/23 09/02/23 09/01/23 History simvastatin 20 mg tablet 20 mg PO DAILY@1800 09/02/23 09/02/23 09/01/23 History solifenacin 10 mg tablet 10 mg PO BEDTIME 09/02/23 09/02/23 09/01/23 History telmisartan 40 mg tablet 40 mg PO BEDTIME 09/02/23 09/02/23 09/01/23 History Physical Exam 2 Vital Signs and Narrative: Vital Signs: Last Vital Signs Temp 96.9 F 09/02/23 08:19 Pulse 71 09/02/23 15:16 Resp 16 09/02/23 15:16 BP 113/78 09/02/23 15:16 Pulse Ox 97 09/02/23 15:16 O2 Del Method Room Air 09/02/23 15:16 BMI result Body Mass Index 26.3 Constitutional - Awake and Alert, No apparent distress Eyes - PERRLA, EOMI Cardiovascular - S1S2, RRR, No edema Respiratory - Normal lung expansion, Normal respiratory effort, No respiratory distress, CTA bilaterally Gastrointestinal - Abdomen is moderately distended with mild diffuse tenderness to palpation without any guarding or rebound. +BS Rectum - large amount firm but malleable stool in the proximal aspect rectal vault Extremities - no calf tenderness bilaterally, no swelling Skin - Warm/Dry Neurological - Alert & oriented x3 Psychological - Appropriate affect Results Labs 09/02/23 17:55 09/02/23 17:55 Imaging Radiologist's Impressions: Impressions KUB X-Ray 09/02/23 08:38 IMPRESSION: Large stool burden in the descending colon and rectosigmoid colon without evidence of focal bowel obstruction. 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 #Acute constipation with fecal impaction -manually disimpacted at bedside by ED provider. Large firm but malleable stool noted on RANULFO in proximal aspect rectal vault -Give addl 20g lactulose and addl fleets enema x1 -Miralax daily and colace BID -add senna nightly -Encourage PO hydration -regular diet -encourage oob with assist (uses walker) #COVID-19 -diagnosed 5 days ago. PCR remains positive -airborne/contact precautions -symptomatic management -PT consult for general weakness # Paroxysmal atrial fibrillation -rate controlled - continue Xarelto for anticoagulation - continue amiodarone # unspecified peripheral neuropathy - continue gabapentin # hypertension - blood pressure reasonably controlled # mood disorder - continue SSRI DVT prophylaxis-Xarelto full code daughter, Claudette, is health care proxy (not invoked)- [phone] Quality Stroke Does the patient have a stroke diagnosis?: No VTE Prior VTE?: No VTE Risk Level:: Medical - moderate - high VTE Device Contraindication: Treatment Not Indicated VTE Drug Contraindication: N/A - Med Ordered
[2023-09-02 17:49] LABS: Influenza A PCR NEGATIVE (Negative); Influenza B PCR NEGATIVE (Negative); Resp Syncy Virus RNA Qual PCR NEGATIVE (Negative); SARS COV2 PCR INHOUSE POSITIVE (Negative)
[2023-09-02 17:59] LABS: MANUAL DIFF FLAG NO
[2023-09-02] MEDS: Rivaroxaban 20 MG TABLET PO (18:14)
[2023-09-02] MEDS: Atorvastatin Calcium 10 MG TABLET PO (18:14)
[2023-09-02 18:23] LABS: Basophils Percent Auto 0.4 % (0-2); Eosinophils Absolute Auto 0.2 X10*3/uL (0.0-0.4); Eosinophils Percent Auto 1.9 % (0-4); Hematocrit 38.2 % (37.0-47.0); Hemoglobin 12.9 g/dl (12.0-16.0); Imm Gran Abs Auto 0.08 X10*3/uL (0.00-0.03); Lymphocytes Absolute Auto 0.9 X10*3/uL (1.2-4.9); Lymphocytes Percent Auto 11.2 % (20-40); Mean Corpuscular HGB Conc 33.8 g/dl (31.0-35.0); Mean Corpuscular Hemoglobin 30.4 pg (27.0-33.0); Mean Corpuscular Volume 90.1 fL (80.0-98.0); Mean Platelet Volume 11.1 fL (9.4-12.3); Monocytes Absolute Auto 0.7 X10*3/uL (0.1-1.2); Monocytes Percent Auto 8.4 % (2-11); Neutrophils Absolute Auto 6.1 x10*3/uL (2.0-8.3); Neutrophils Percent Auto 77.1 % (45-73); Platelet Count 210 X10*3/uL (160-400); Red Blood Count 4.24 X10*6/uL (4.20-5.50); Red Cell Distribution Width 12.9 % (11.0-16.0); White Blood Count 7.9 X10*3/uL (4.8-10.8)
[2023-09-02 18:24] LABS: Anion Gap 13 (12-20); Blood Urea Nitrogen 8 mg/dL (9-16); Carbon Dioxide 27 mmol/L (22-29); Chloride 99 mmol/L (96-108); Creatinine Clr Calc Pharmacy 61.9; Estimated Glomerular Filt Rate > 60; Glucose Random 106 mg/dL (60-115); Sodium 135 mmol/L (135-145)
[2023-09-02 18:52] VITALS: BP 160/73; PULSE 72; RESP 18; O2SAT 97
[2023-09-02 21:19] VITALS: BP 166/67; PULSE 66; RESP 16; TEMP 36.8; O2SAT 97
[2023-09-02] MEDS: Sennosides 8.6 MG TABLET 17.2 MG PO (22:38)
[2023-09-02] MEDS: Tolterodine Tartrate LA 4 MG CAP.ER.24H PO (22:38)
[2023-09-02] MEDS: Valsartan 80 MG TABLET PO (22:39)
[2023-09-02] MEDS: polyethylene glycoL 3350 17 GM POWD.PACK PO (22:39)
[2023-09-02] MEDS: Amiodarone HCL 200 MG TABLET 100 MG PO (22:39)
[2023-09-02] MEDS: Docusate Sodium 100 MG CAPSULE PO (22:39)
[2023-09-02] MEDS: Gabapentin 300 MG CAPSULE PO (22:39)
[2023-09-03 06:45] LABS: MANUAL DIFF FLAG NO
[2023-09-03 07:03] LABS: Basophils Percent Auto 0.5 % (0-2); Eosinophils Absolute Auto 0.3 X10*3/uL (0.0-0.4); Eosinophils Percent Auto 3.9 % (0-4); Hematocrit 34.6 % (37.0-47.0); Imm Gran Abs Auto 0.01 X10*3/uL (0.00-0.03); Imm Gran Pct Auto 0.2 % (0.0-0.4); Lymphocytes Absolute Auto 1.1 X10*3/uL (1.2-4.9); Lymphocytes Percent Auto 17.5 % (20-40); Mean Corpuscular HGB Conc 34.7 g/dl (31.0-35.0); Mean Corpuscular Hemoglobin 30.5 pg (27.0-33.0); Mean Corpuscular Volume 87.8 fL (80.0-98.0); Mean Platelet Volume 10.8 fL (9.4-12.3); Monocytes Absolute Auto 0.6 X10*3/uL (0.1-1.2); Monocytes Percent Auto 9.1 % (2-11); Neutrophils Absolute Auto 4.4 x10*3/uL (2.0-8.3); Neutrophils Percent Auto 68.8 % (45-73); Platelet Count 215 X10*3/uL (160-400); Red Blood Count 3.94 X10*6/uL (4.20-5.50); Red Cell Distribution Width 12.9 % (11.0-16.0); White Blood Count 6.4 X10*3/uL (4.8-10.8)
[2023-09-03 07:06] LABS: Anion Gap 12 (12-20); Blood Urea Nitrogen 9 mg/dL (9-16); Calcium 8.8 mg/dL (8.4-10.2); Carbon Dioxide 26 mmol/L (22-29); Chloride 101 mmol/L (96-108); Creatinine Clr Calc Pharmacy 65.5; Estimated Glomerular Filt Rate > 60; Glucose Random 81 mg/dL (60-115); Potassium 3.9 mmol/L (3.3-5.1); Sodium 135 mmol/L (135-145)
[2023-09-03 08:04] VITALS: BP 140/68; PULSE 85; RESP 20; TEMP 36.8; O2SAT 95
[2023-09-03] MEDS: Docusate Sodium 100 MG CAPSULE PO (09:08)
[2023-09-03] MEDS: Cholecalciferol (Vitamin D3) 25 MCG TABLET 125 MCG PO (09:08)
[2023-09-03] MEDS: amLODIPine Besylate 5 MG TABLET PO (09:08)
[2023-09-03] MEDS: Escitalopram Oxalate 5 MG TABLET PO (09:08)
--- NOTE | 2023-09-03 11:32 | P.DS_ITS ---
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 She takes MiraLax on a daily basis and has also been using milk of magnesia and performed enemas at home without any bowel movement. She is reporting intermittent moderate diffuse abdominal discomfort rated a 5/10 without radiation. Reports lying flat at rest relieves pain but every time she tries to move her bowels, this brings on the pain. She has not noted any bright red blood per rectum, no nausea or vomiting. No lightheadedness, shortness of breath, chest pain. no fevers or chills. Has mild cough related to COVID-19. In the ED, vital signs stable, no hypoxia. Labs pending. KUB shows large stool burden in the descending colon and retro sigmoid colon without evidence of focal bowel obstruction. She was given fleets enema x1 and 20 mg lactulose in the ED. Manual disimpaction performed bedside with large amount of hard stool removed. She was also given 17 g senna. She tells me that she was able to have a very small soft bowel movement following the disimpaction but still feels very constipated and bloated. 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 Acute constipation with fecal impaction, abdominal pain and distension, patient was disimpacted at bedside by the ED provider. Large firm but malleable stool noted on RANULFO in proximal aspect rectal vault Patient was given additional 20g lactulose and fleets enema x1 with no affect since patient was feeling uncomfortable with persistent constipation,she was admitted under observation and was given repeat dose of lactulose ,enema and was continued on MiraLax and Colace patient had 2 bowel movements, and feeling significantly better, tolerating diet, therefore is being discharged home with recommendation to continue daily MiraLax, drink plenty of fluids, and add fiber to diet, care of plan discussed with patient's daughter. In regard to recently diagnosed COVID-19 patient was noted to be asymptomatic with no hypoxia recommend Tylenol rest and cough medication as needed. Paroxysmal atrial fibrillation -rate controlled, recommend to continue Xarelto and amiodarone, patient blood pressure remained stable. unspecified peripheral neuropathy - continue gabapentin Time Attestation Discharge coordination time: Greater than 30 minutes Quality: Safe Use of Opioids Does Pt have an Active Cancer Diagnosis on the Problem List?: No Quality: Stroke Does the patient have a stroke diagnosis?: No Physical Exam Vital Signs: Vital Signs: Last Vital Signs Temp 98.2 F 09/03/23 08:04 Pulse 85 09/03/23 08:04 Resp 20 09/03/23 08:04 BP 140/68 H 09/03/23 08:04 Pulse Ox 95 09/03/23 08:04 O2 Del Method Room Air 09/03/23 08:04 BMI result Body Mass Index 26.3 Const: Other: General awake alert x3, resting comfortably in no acute distress Anicteric sclera. Neck is supple no JVD. CVS regular rate rhythm, Respiratory lungs clear to auscultation, no respiratory distress, no wheeze, no rhonchi. Gastrointestinal abdomen soft, distension and tenderness resolved, bowel sounds audible,no guarding , no rigidity. Extremities no edema. Neuro nonfocal ,speech clear. Skin no rash Psych appropriate affect DS: Data Data Completed and Pending Labs on day of discharge: Laboratory Results - last 24 hr 09/02/23 09/02/23 09/03/23 16:45 17:55 06:27 WBC 7.9 6.4 RBC 4.24 3.94 L Hgb 12.9 12.0 Hct 38.2 34.6 L MCV 90.1 87.8 MCH 30.4 30.5 MCHC 33.8 34.7 RDW 12.9 12.9 Plt Count 210 215 MPV 11.1 10.8 Immature Gran % (Auto) 1.0 H 0.2 Neut % (Auto) 77.1 H 68.8 Lymph % (Auto) 11.2 L 17.5 L [place] % (Auto) 8.4 9.1 Eos % (Auto) 1.9 3.9 Baso % (Auto) 0.4 0.5 Lymph # (Auto) 0.9 L 1.1 L [place] # (Auto) 0.7 0.6 Eos # (Auto) 0.2 0.3 Baso # (Auto) 0.0 0.0 Abs Immat Gran (auto) 0.08 H 0.01 Absolute Neuts (auto) 6.1 4.4 Absolute Nucleated RBC 0.000 0.000 Nucleated RBC % (auto) 0.0 0.0 Sodium 135 135 Potassium 4.0 3.9 Chloride 99 101 Carbon Dioxide 27 26 Anion Gap 13 12 BUN 8 L 9 Creatinine 0.72 0.68 Estim Creat Clear Calc 61.9 65.5 Estimated GFR > 60 > 60 Random Glucose 106 81 Calcium 9.0 8.8 TSH 2.20 Influenza Type A (PCR) NEGATIVE Influenza Type B (PCR) NEGATIVE RSV RNA Qual (PCR) NEGATIVE SARS-CoV-2 RNA (RT-PCR) POSITIVE A Discharge Plan Discharge Anticipated Discharge Date/Time: 09/03/23 11:25 Patient Disposition: Home, Self-Care Discharge Diagnosis: Constipation/stool impaction Abdominal pain Referrals: Flex Roque MD [Primary Care Provider] - 1 Week Discharge Medications: New docusate sodium 100 mg Capsule 100 mg PO .daily prn Qty: 30 0RF Continued citalopram 10 mg tablet 10 mg PO DAILY amlodipine 5 mg tablet 5 mg PO DAILY simvastatin 20 mg tablet 20 mg PO DAILY@1800 telmisartan 40 mg tablet 40 mg PO BEDTIME gabapentin 300 mg capsule 300 mg PO BEDTIME amiodarone 100 mg tablet 100 mg PO BEDTIME solifenacin 10 mg tablet 10 mg PO BEDTIME Xarelto 20 mg tablet 20 mg PO DAILY@1800 polyethylene glycol 3350 [Miralax] 17 gram Powder In Packet 17 g PO DAILY cholecalciferol (vitamin D3) [Vitamin D3] 125 mcg (5,000 unit) Tablet 125 mcg PO DAILY Discharge Orders: Discharge Order (Routine); Ordered 09/03/23 Ordered By: Eddie Bernstein Diet: Low fat, low cholesterol Activity on Discharge: As tolerated Stand Alone Forms: Patient Portal Discharge page Care Plan Goals: Continue MiraLax/high-fiber diet/increase fluids Take Colace as needed if noted to have no bowel movements in 2 days Health Concerns: Continue all home medications Plan of Treatment: Outpatient follow-up with primary care physician Assessment: As above Discharge Date/Time: 09/03/23 12:31
== END 2023-09-03 12:31 | disposition home or self-care (01) ==
LOC: HO.ED 16:12 → HO.EDOVER 17:47
PROVIDERS: Admitting Provider Physician Assistant; Emergency Provider Emergency Medicine; PCP Pediatrics; Visit Provider Hospitalist
DX: K59.00 Constipation, unspecified (principal); U07.1 COVID-19; R10.30 Lower abdominal pain, unspecified; I48.0 Paroxysmal atrial fibrillation; I10 Essential (primary) hypertension; G62.9 Polyneuropathy, unspecified; F39 Unspecified mood [affective] disorder; Z95.0 Presence of cardiac pacemaker; Z79.01 Long term (current) use of anticoagulants; Z79.899 Other long term (current) drug therapy
CPT/HCPCS: 0241U; 36415; 74018; 80048; 84443; 85025; 99222; 99284; 99285

== ENCOUNTER → 2023-09-02 17:26 | Outpatient (BNV) | payer MEDICARE, OTHER, SELFPAY | PROVIDERS: Admitting Provider Physician Assistant; Emergency Provider Emergency Medicine; PCP Pediatrics; Visit Provider Physician Assistant | DX: K56.41 Fecal impaction (principal); K59.00 Constipation, unspecified | CPT/HCPCS: 99223; 99239 ==

== ENCOUNTER 2023-11-03 07:23 | Outpatient (AMB) | payer MEDICARE, OTHER, SELFPAY ==
--- NOTE | 2023-11-03 07:27 | MHC.OFFVIS ---
Intake Vital Signs 11/03/23 07:32 Height 5 ft 7 in Weight 167 lb BMI 26.2 BP 138/78 Blood Pressure Location Lt brachial Position Sitting Respiration 16 Pulse 64 Pulse Source Pulse Oximeter Intake Visit Reasons: NLE-[id number]-YPPS Intake Note: Pt presents for new pt evaluation for ataxia. Pt reports constant falls and unsteady gait. This started in 2015 but has become worse over the years. Dental Hygiene Administrative Assistant Required: No Allergies No Known Allergies Allergy (Verified 11/03/23 07:29) HPI HPI Comments History of Present Illness Details 83y/o female comes for evaluation of multiple falls. she is accompanied by her daughter who helps with history . she started having intermittent falls in 2015 . Prior to that she was diagnosed with peripheral neuropathy ( she was residing in [place] at that time).she was having 2-3 falls a year and usually a mechanical fall. In 2018 she moved to [place]. For the past her falls increased to 1-2 a month with multiple near falls and her gait has deteriorated. she started using poles for walking.In Aug 2023 she had 3 major falls. The first fall was when she tried to tie her shoes in the parking lot. she put her foot on the curb and bend down but fell back wards.The second fall was when she tried to throw the ball to her dog fell forwards .she was reaching over to throw laundry and fell over. she feels like her left foot is - numbness. No vertigo. she used to have multiple syncopal episodes but since the pacemaker she is better but still has dizziness. she has some orthostatic intolerance. Anytime she has a vertical movement like bending down or reaching up she feels her balance is off. No speech issues No back pain. she has mild discomfort in her neck. she drinks socially- 1-2 glasses of wine for dinner 3-4 times a week.she still drives. 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 Hammer toes of both feet Neuropathy Falls frequently Anxious mood Tremors of nervous system Arthritis Hyperlipidemia HTN (hypertension) Atrial fibrillation FH: total knee replacement Pacemaker Surgical History History of hip replacement History of carpal tunnel surgery Family History Mother Dementia Social History Household Members: Children Household Members Other:: DAUGHTER ALEJANDRA Alcohol intake: current Comment: OCCASIONAL Patient Tobacco Use Status: Never used Tobacco Physical Exam Vital Signs: Last Vital Signs Pulse 64 11/03/23 07:32 Resp 16 11/03/23 07:32 BP 138/78 11/03/23 07:32 BMI result Body Mass Index 26.2 Const General: cooperative, healthy appearing, comfortable and no acute distress Nutritional Appearance: average body habitus Orientation/consciousness: patient oriented x3 Neuro Other: Hammer toes jose feet Gait- mild stoop, normal base , mild off balance, has difficulty with lifting her right foot Neck - mild head tremors, decreased range of motion in the neck General: patient oriented x3, tone normal, moves all extremities and no focal motor deficits Cranial nerves: Yes Normal facial strength present and Yes Symmetric palate elevation present Cognition (Neuro): normal cognition Deep tendon reflexes (DTR's): Right triceps reflex intensity grade: 1+, Left triceps reflex intensity grade: 1+, Rt Biceps (C5, C6): 1+, Left biceps reflex intensity grade: 1+, Right brachioradialis reflex intensity grade: 1+, Left brachioradialis reflex intensity grade: 1+, Right patellar reflex intensity grade: 2+, Left patellar reflex intensity grade: 2+, Right ankle reflex intensity grade: 1+ and Left ankle reflex intensity grade: 1+ Coordination: [id number] test normal Assessment & Plan Assessment & Plan (1) 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: Comment: peripheral neuropathy and hammer toes Code(s): G64 - Other disorders of peripheral nervous system; R26.9 - Unspecified abnormalities of gait and mobility (2) Gait disorder: Comment: multifactorial - hammer toes, neuropathy etc Code(s): R26.9 - Unspecified abnormalities of gait and mobility (3) Falls frequently: Code(s): R29.6 - Repeated falls (4) Neuropathy: Code(s): G62.9 - Polyneuropathy, unspecified (5) Hammer toes of both feet: Code(s): M20.41 - Other hammer toe(s) (acquired), right foot; M20.42 - Other hammer toe(s) (acquired), left foot Plan Discussed the possible causes of her falls- a combination of mechanical and sensory issues.No evidence of cebellar ataxia or extrapyramidal symptoms. Discussed various strategies to prevent falls. D/C gabapentin PT to assess for walker and gait training, balance start alpha lipoic acid 500-600 mg qd EMG NCS to assess neuropathy - LE Podiatry evaluation Check Vit B12 Orders: Orders NE electromyogram (EMG) Today G62.9 - Polyneuropathy, unspecified Vitamin B12 and Folate Today R29.6 - Repeated falls PT Evaluation and Treatment Today R29.6 - Repeated falls Referrals Podiatry Referral M20.41 - Other hammer toe(s) (acquired), right foot, M20.42 - Other hammer toe(s) (acquired), left foot Coding Level of Care Code New Pt Level 4 (75080) Diagnoses 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 G64; R26.9 Gait disorder R26.9 Falls frequently R29.6 Neuropathy G62.9 Hammer toes of both feet M20.41; M20.42
[2023-11-03 07:32] VITALS: BP 138/78; PULSE 64; RESP 16; BMI 26.2
== END 2023-11-03 08:28 | disposition home or self-care (01) ==
PROVIDERS: PCP Pediatrics; Visit Provider Psychiatry & Neurology Neurology
DX: G64 Other disorders of peripheral nervous system (principal); R26.9 Unspecified abnormalities of gait and mobility; R29.6 Repeated falls; G62.9 Polyneuropathy, unspecified; M20.41 Other hammer toe(s) (acquired), right foot; M20.42 Other hammer toe(s) (acquired), left foot
CPT/HCPCS: 99204

== ENCOUNTER → 2023-11-03 07:23 | Outpatient (BNVA) | payer MEDICARE, OTHER, SELFPAY | PROVIDERS: PCP Pediatrics; Visit Provider Psychiatry & Neurology Neurology | DX: G64 Other disorders of peripheral nervous system (principal); G62.9 Polyneuropathy, unspecified; R26.9 Unspecified abnormalities of gait and mobility; M20.41 Other hammer toe(s) (acquired), right foot; M20.42 Other hammer toe(s) (acquired), left foot | CPT/HCPCS: 99202 ==

== ENCOUNTER 2023-11-30 13:46 | Outpatient (REF) | payer MEDICARE, OTHER, SELFPAY ==
--- NOTE | 2023-11-30 14:11 | EMG_ITS ---
Chief complaint: History of numbness on bottom of both feet. EMG done in 2013 allegedly showed progressive neuropathy. EMG report was not available for my review. Patient said she was doing okay for a while and then numbness started happening again. And she has been falling recently. She also has history of back pain, bilateral knee replacements, bilateral hip replacements, vein stripping and bilateral CTS surgeries. Reason for referral: Evaluate for neuropathy Referred by: Dr. Steward Procedure done: Bilateral lower extremity NCS/EMG Precautions and/or limitations: Patient has a pacemaker. Patient is on Xarelto. Advanced age. The limb temperature was monitored continuously and remained between 32-36 degrees C during the performance of the NCS. Nerve Conduction Studies Anti Sensory Summary Table ?Stim Site NR Onset (ms) Norm Onset (ms) Peak (ms) Norm Peak (ms) O-P Amp (?V) Norm O-P Amp Site1 Site2 Delta-0 (ms) Dist (cm) Stefano (m/s) Norm Stefano (m/s) Right Radial Anti Sensory (Thumb) Forearm ? 1.3 1.9 <3.1 31.8 Forearm Thumb 1.3 0.0 Left Sural Anti Sensory (Lat Mall) Calf ? 2.8 3.4 <4.0 1.9 >5.0 Calf Lat Mall 2.8 14.0 50 Calf ? 2.8 3.4 0.7 Right Sural Anti Sensory (Lat Mall) Calf ? 2.6 3.3 <4.0 6.0 >5.0 Calf Lat Mall 2.6 14.0 54 Calf ? 3.0 3.5 1.5 Calf ? 3.2 3.7 1.2 Motor Summary Table ?Stim Site NR Onset (ms) Norm Onset (ms) O-P Amp (mV) Norm O-P Amp iAmp (mV) Amp (1st) (%) Site1 Site2 Delta-0 (ms) Dist (cm) Stefano (m/s) Norm Stefano (m/s) Right Peroneal Motor (Ext Dig Brev) Ankle ? 5.5 <4.0 0.8 >2.5 1.3 100.0 Ankle Ext Dig Brev 5.5 0.0 B Fib NR B Fib Ankle 0.0 >40 Poplt NR Poplt B Fib 0.0 >40 Left Tibial Motor (Abd Pacheco Brev) Ankle NR <5 >2.5 Ankle Abd Pacheco Brev 0.0 Knee ? 14.0 1.8 2.6 Knee Ankle 0.0 >40 Right Tibial Motor (Abd Pacheco Brev) Ankle ? 4.2 <5 0.6 >2.5 0.7 100.0 Ankle Abd Pacheco Brev 4.2 0.0 Knee NR Knee Ankle 0.0 >40 EMG ?Side Muscle Nerve Root Ins Act Fibs Psw Amp Dur Poly Recrt Int Pat Comment Right AbdHallucis MedPlantar S1-2 Nml Nml Nml Nml Nml 0 Nml Complete Right AntTibialis Dp Br Peron L4-5 Nml Nml Nml Nml Nml 0 Nml Complete Right MedGastroc Tibial S1-2 Incr 1+ 1+ Incr Incr 0 Nml Complete Right BicepsFemS Sciatic L5-S1 Nml Nml Nml Nml Nml 0 Nml Complete Right VastusMed Femoral L2-4 Nml Nml Nml Incr Incr 1+ Nml Complete Left AbdHallucis MedPlantar S1-2 Nml Nml Nml Nml Nml 0 Nml Complete Left AntTibialis Dp Br Peron L4-5 Incr 1+ 1+ Incr Incr 0 Nml Complete Left MedGastroc Tibial S1-2 Nml Nml Nml Incr Incr 0 Nml Complete Left VastusMed Femoral L2-4 Nml Nml Nml Nml Nml 0 Nml Complete Left BicepsFemS Sciatic L5-S1 Nml Nml Nml Nml Nml 0 Nml Complete FINDINGS: Peroneal and tibial nerves showed very small, if not absent, amplitudes. Note that she has a pacemaker and I could not increase stimulation too much. However, had good responses from bilateral sural nerves. Right even showed normal amplitude. Smaller amplitudes on left. As expected from advanced age. She also had good response from right radial sensory nerve. Concentric needle EMG was performed in selected muscles of the bilateral lower extremity. Study revealed signs of electric abnormalities as shown in the table below. Right vastus medialis showed increased duration, amplitude and polyphasia. Right medial gastrocnemius showed increased insertional activity, PSWs, fibrillations, duration and amplitude. Left medial gastrocnemius showed increased duration and amplitude. Left tibialis anterior showed increased insertional activity, PSWs, fibrillations, duration and amplitude. No myopathic looking units. No fasciculations seen. IMPRESSION: 1. This is an abnormal study. 2. 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 3. Given that sensory nerves were within acceptable limits given age, there are no other findings to support diagnosis of peripheral neuropathy. 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 Sensory nerves were within acceptable limits given age and without evidence of a stocking-glove distribution. If past EMG can be obtained, we could compare results. Consider further evaluation for lumbar radiculopathy or spinal stenosis. Thank you for your kind referral. Marti Osuna MD, DORENE Board Certified, [place] [employer] and [employer] (ABPMR) Board Certified, [place] Board [employer] Electro[employer] (ABEM) CODIN 40624 x 2 MTDD
[2023-11-30 16:24] LABS: Folate 10.7 ng/mL (> or = 4.0); Vitamin B12 361 pg/mL (200-900)
== END 2023-11-30 13:47 | disposition home or self-care (01) ==
LOC: HO.NEURO 13:46
PROVIDERS: PCP Pediatrics; Visit Provider Psychiatry & Neurology Neurology
DX: R29.6 Repeated falls (principal); G62.9 Polyneuropathy, unspecified; G60.9 Hereditary and idiopathic neuropathy, unspecified; Z95.0 Presence of cardiac pacemaker; Z79.01 Long term (current) use of anticoagulants
CPT/HCPCS: 36415; 82607; 82746; 95886; 95909

== ENCOUNTER → 2023-11-30 14:11 | Outpatient (BNV) | payer MEDICARE, OTHER, SELFPAY | PROVIDERS: PCP Pediatrics; Visit Provider Physical Medicine & Rehabilitation | DX: M54.16 Radiculopathy, lumbar region (principal) | CPT/HCPCS: 95886; 95909 ==

== ENCOUNTER 2024-01-31 20:44 | Emergency (ER) | payer MEDICARE, OTHER, SELFPAY ==
--- NOTE | 2024-01-31 | ECG_ITS ---
Test Reason : FALL Blood Pressure : / mmHG Vent. Rate : 063 BPM Atrial Rate : 063 BPM P-R Int : 240 ms QRS Dur : 094 ms QT Int : 476 ms P-R-T Axes : 000 -17 064 degrees QTc Int : 487 ms AV dual-paced rhythm with prolonged AV conduction Abnormal ECG When compared with ECG of 21-AUG-2023 17:43, Atrial pacing now seen Referred By: Generic ED Physician Electronically Signed By:TRU WHITNEY
--- NOTE | ~2024-01-31 | CT_ITS ---
EXAMINATION: HEAD CT WITHOUT CONTRAST CERVICAL SPINE CT WITHOUT CONTRAST CLINICAL INFORMATION: Fall. Pain. COMPARISON: 08/21/2023. TECHNIQUE: Contiguous axial imaging of the head was performed without the administration of IV contrast. Axial multidetector volumetric images were also performed through the cervical spine without intravenous contrast. Multiplanar reconstructed images in coronal and sagittal orientations were submitted. This CT examination was performed using dose optimization techniques as appropriate, variously including the following: *Automated exposure control *Adjustment of mA and/or kV according to patient size (this includes techniques or standardized protocols for targeted exams where dose is matched to indication/reason for exam; i.e. extremities or head) *Use of iterative reconstruction technique DOSE: 93 mGy-cm FINDINGS: HEAD: There is no evidence of acute intracranial hemorrhage or territorial infarction. No abnormal mass-effect or midline shift. No extra-axial fluid collections. Darnell to white matter differentiation is well preserved. Mild enlargement of the ventricles, sulci, and extra-axial CSF spaces is indicative of parenchymal volume loss. A few foci of hypoattenuation in the subcortical and periventricular white matter are most consistent with chronic microangiopathic changes. Calcific atherosclerosis is present within the cavernous segments of the internal carotid arteries. Globes are aphakic. The soft tissues and osseous structures are normal. There is partial opacification of the left cavernous sinus which is unchanged as compared to prior. The sinuses and mastoid air cells are otherwise clear. CERVICAL SPINE: Vertebral body heights are normal. No fractures of the vertebral bodies or posterior elements. Vertebral alignment is normal. No subluxation. Degenerative osteophytes and sclerosis are present at the atlantodental articulation, though normal alignment is maintained. Craniocervical junction is normal. Moderate severe multilevel degenerative disc disease is most pronounced from C3-C4 through C7-T1, characterized by loss of intervertebral disc height, endplate irregularity, endplate osteophytes, subchondral endplate cystic change, and uncovertebral osteophytes. Mild multilevel facet arthropathy, most pronounced on the right at C3-C4. Posterior disc osteophyte complexes produce at least mild central canal narrowing at C3-C4, C4-C5 and C5-C6. Uncovertebral osteophytes contribute to multilevel neural foraminal encroachment, also most pronounced from C3-C4 through C5-C6 bilaterally. No significant paravertebral soft tissue swelling. Atherosclerotic calcifications are present in the carotid arteries. Imaged portions of the lung apices are clear. CT/CT cervical spine wo IV con IMPRESSION: 1. No acute intracranial pathology. Mild chronic cerebral microangiopathy. 2. No acute fracture or malalignment in the cervical spine. Multilevel degenerative spondylosis in the cervical spine. 3. 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
[2024-01-31 20:46] VITALS: BP 133/72; BP 141/77; PULSE 69; PULSE 80; RESP 17; TEMP 36.5; O2SAT 97; O2SAT 98; BMI 28.1
--- NOTE | 2024-01-31 21:01 | PC.NURSE ---
pt biba from home, a&ox4, respirations even and unlabored after mechanical fall in bathroom. +head strike, +thinners + c collar, unsure LOC. pt denies any head neck and chest pain. pt reporting nausea and vomiting, denies diarrhea. ems placed 18G left forearm, gave pt 4mg of IV zofran. pt normal sinus on tele and paced 80bpm.
--- NOTE | 2024-01-31 21:31 | ED.FALL ---
HPI - Fall General Chief Complaint: Fall Stated Complaint: fall Time Seen by Provider: 01/31/24 21:30 Source: patient and family Mode of arrival: EMS Limitations: no limitations History of Present Illness ED Provider: clement TINAJERO Narrative: Patient 84 years old history of atrial fibrillation on Xarelto history of frequent dizziness whenever she gets up quickly with frequent falls apparently patient went to bathroom earlier got up from the toilet felt dizzy unable to make to the bed and fell forward hitting her forehead to the ground dazed for short time daughter was at home who came out immediately to see her no seizure activity patient has vomited several times after fall which is very common whenever she fall she vomits patient not sure about dizziness feels lightheaded sometimes sometimes feel everything spinning no chest pain or palpitation Related Data Home Medications ?Medication ?Instructions ?Recorded ?Confirmed amiodarone 100 mg tablet 100 mg PO BEDTIME 09/02/23 09/02/23 amlodipine 5 mg tablet 5 mg PO DAILY 09/02/23 09/02/23 cholecalciferol (vitamin D3) 125 125 mcg PO DAILY 09/02/23 09/02/23 mcg (5,000 unit) tablet (Vitamin D3) citalopram 10 mg tablet 10 mg PO DAILY 09/02/23 09/02/23 gabapentin 300 mg capsule 300 mg PO BEDTIME 09/02/23 09/02/23 polyethylene glycol 3350 17 gram 17 g PO DAILY 09/02/23 09/02/23 oral powder packet (Miralax) rivaroxaban 20 mg tablet (Xarelto) 20 mg PO DAILY@1800 09/02/23 09/02/23 simvastatin 20 mg tablet 20 mg PO DAILY@1800 09/02/23 09/02/23 solifenacin 10 mg tablet 10 mg PO BEDTIME 09/02/23 09/02/23 telmisartan 40 mg tablet 40 mg PO BEDTIME 09/02/23 09/02/23 Previous Rx's ?Medication ?Instructions ?Recorded docusate sodium 100 mg capsule 100 mg PO .daily prn constipation 09/03/23 #30 caps Allergies Allergy/AdvReac Type Severity Reaction Status Date / Time No Known Allergies Allergy Verified 01/31/24 20:58 Review of Systems Review of Systems: Yes all other systems are reviewed and are negative PMFSH Past Medical History Medical History Peripheral neuropathy Gait disorder 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 Hammer toes of both feet Neuropathy Falls frequently Anxious mood Tremors of nervous system Arthritis Hyperlipidemia HTN (hypertension) Atrial fibrillation FH: total knee replacement Pacemaker Surgical History History of hip replacement History of carpal tunnel surgery Family History Family History Mother Dementia Social History Social History Household Members: Children Household Members Other:: DAUGHTER ALEJANDRA Alcohol intake: current Alcohol intake frequency: a few times a month Comment: OCCASIONAL Patient Tobacco Use Status: Never used Tobacco Smoked in Last 30 Days: No Use of substances other than those prescribed or required for medical reasons: No Advance Directives: No Advance Directives Information Provided: No Do you have a plan to hurt others: No Plan Physical Exam Vital Signs: Vital Signs: Last Vital Signs Temp 97.9 F 02/01/24 00:13 Pulse 65 02/01/24 00:13 Resp 14 02/01/24 00:13 BP 142/74 H 02/01/24 00:13 Pulse Ox 96 02/01/24 00:13 O2 Del Method Room Air 02/01/24 00:13 BMI result Body Mass Index 28.1 Appearance: Alert. Oriented X3. No acute distress. Eyes: PERRLA, No Nystagmus ENT: Pharynx normal. Oral Mucosa moist Neck: Normal inspection. Neck supple. CVS: Normal heart rate and rhythm. Pulses normal. Respiratory: No respiratory distress. Equal air entry bilateral, no wheezing/rales/rhonchi Abdomen: Soft and nontender. Bowel sounds are present, no mass palpable, no CVA tenderness Skin: Skin warm and dry. Normal skin color. Normal skin turgor. Extremities: No lower extremity edema. No calf tenderness Neuro: Oriented X 3. No motor deficit. No sensory deficit.No cerebellar signs , cranial nerves II-XII intact Medications Administered Discontinued Medications Generic Name Dose Route Start Last Admin Trade Name Freq PRN Reason Stop Dose Admin Sodium Chloride 1,000 mls @ 999 mls/hr 01/31/24 22:31 01/31/24 23:34 Ns IV 01/31/24 23:31 Infused .Q1H1M ONE Infusion Ondansetron HCl 4 mg 01/31/24 21:42 01/31/24 21:45 Ondansetron Hcl 4 Mg/2 Ml Vial IVPUSH 01/31/24 21:43 4 mg ONCE ONE Administration Medical Decision Making Medical Decision Making [facility] Narrative: Patient is status post mechanical fall CT scan of the head and C-spine negative does have difficulty in balance which is going on for a while has physical therapy coming to her house next week patient lives with her daughter ambulated to the bathroom will use walker more often discharge patient home Differential Diagnosis Differential Diagnoses: The differential diagnosis associated with the presentation includes Subdural hematoma/subarachnoid bleed/skull fracture Lab Data [facility] Lab Attestation statement: I reviewed the patient's lab results. 01/31/24 21:21 01/31/24 21:21 Labs: Lab Results 01/31/24 01/31/24 Range/Units 21:21 21:54 WBC 4.7 L (4.8-10.8) X10*3/uL RBC 4.09 L (4.20-5.50) X10*6/uL Hgb 12.7 (12.0-16.0) g/dl Hct 37.4 (37.0-47.0) % MCV 91.4 (80.0-98.0) fL MCH 31.1 (27.0-33.0) pg MCHC 34.0 (31.0-35.0) g/dl RDW 13.1 (11.0-16.0) % Plt Count 225 (160-400) X10*3/uL MPV 10.7 (9.4-12.3) fL Immature Gran % (Auto) 0.2 (0.0-0.4) % Neut % (Auto) 68.4 (45-73) % Lymph % (Auto) 18.6 L (20-40) % [place] % (Auto) 9.2 (2-11) % Eos % (Auto) 3.0 (0-4) % Baso % (Auto) 0.6 (0-2) % Lymph # (Auto) 0.9 L (1.2-4.9) X10*3/uL [place] # (Auto) 0.4 (0.1-1.2) X10*3/uL Eos # (Auto) 0.1 (0.0-0.4) X10*3/uL Baso # (Auto) 0.0 (0.0-0.2) X10*3/uL Abs Immat Gran (auto) 0.01 (0.00-0.03) X10*3/uL Absolute Neuts (auto) 3.2 (2.0-8.3) x10*3/uL Absolute Nucleated RBC 0.000 (0.0-0.012) X10*3/uL Nucleated RBC % (auto) 0.0 (0.0-0.2) /100WBC PT 21.5 H D (11.1-13.3) SEC INR 1.8 H (0.9-1.1) APTT 40.0 H (26.0-36.8) SEC Sodium 138 (135-145) mmol/L Potassium 4.1 (3.3-5.1) mmol/L Chloride 100 (96-108) mmol/L Carbon Dioxide 28 (22-29) mmol/L Anion Gap 14 (12-20) BUN 15 (9-16) mg/dL Creatinine 0.86 (0.5-1.4) mg/dL Estim Creat Clear Calc 50.7 Estimated GFR > 60 Random Glucose 120 H (60-115) mg/dL Calcium 9.0 (8.4-10.2) mg/dL Total Bilirubin 0.4 (0.0-1.0) mg/dL AST 24 (5-31) U/L ALT 16 (0-31) U/L Alkaline Phosphatase 55 (39-117) U/L Total Protein 6.7 (6.5-8.0) g/dL Albumin 4.2 (3.5-5.0) g/dL Independent Interpretation I performed an independent interpretation of an: EKG and CT Scan Interpretation: Paced rhythm ventricular rate 63 beats per minute no acute ST-T elevation no acute ischemia Radiology Impression Discussion of test interpretation with radiology: I have reviewed the radiologist's reading. Discharge Plan Discharge Clinical Impression: Fall Patient Disposition: Home, Self-Care Instructions: Fall Prevention for Older Adults (ED) Additional Instructions: Care and cautions as advised Drink plenty of fluids Gets some help if you feel dizzy Use walker all the time Prescriptions: No Action citalopram 10 mg tablet 10 mg PO DAILY amlodipine 5 mg tablet 5 mg PO DAILY simvastatin 20 mg tablet 20 mg PO DAILY@1800 telmisartan 40 mg tablet 40 mg PO BEDTIME gabapentin 300 mg capsule 300 mg PO BEDTIME amiodarone 100 mg tablet 100 mg PO BEDTIME solifenacin 10 mg tablet 10 mg PO BEDTIME Xarelto 20 mg tablet 20 mg PO DAILY@1800 polyethylene glycol 3350 [Miralax] 17 gram Powder In Packet 17 g PO DAILY cholecalciferol (vitamin D3) [Vitamin D3] 125 mcg (5,000 unit) Tablet 125 mcg PO DAILY docusate sodium 100 mg Capsule 100 mg PO .daily prn Qty: 30 0RF Interventions: ED Discharge Assessment Last Done: 02/01/24 00:13 Discharge Date/Time: 02/01/24 00:13 Print Language: Maltese
[2024-01-31 21:34] LABS: MANUAL DIFF FLAG NO
[2024-01-31 21:38] LABS: Basophils Percent Auto 0.6 % (0-2); Eosinophils Absolute Auto 0.1 X10*3/uL (0.0-0.4); Hematocrit 37.4 % (37.0-47.0); Hemoglobin 12.7 g/dl (12.0-16.0); Imm Gran Abs Auto 0.01 X10*3/uL (0.00-0.03); Imm Gran Pct Auto 0.2 % (0.0-0.4); Lymphocytes Absolute Auto 0.9 X10*3/uL (1.2-4.9); Lymphocytes Percent Auto 18.6 % (20-40); Mean Corpuscular Hemoglobin 31.1 pg (27.0-33.0); Mean Corpuscular Volume 91.4 fL (80.0-98.0); Mean Platelet Volume 10.7 fL (9.4-12.3); Monocytes Absolute Auto 0.4 X10*3/uL (0.1-1.2); Monocytes Percent Auto 9.2 % (2-11); Neutrophils Absolute Auto 3.2 x10*3/uL (2.0-8.3); Neutrophils Percent Auto 68.4 % (45-73); Platelet Count 225 X10*3/uL (160-400); Red Blood Count 4.09 X10*6/uL (4.20-5.50); Red Cell Distribution Width 13.1 % (11.0-16.0); White Blood Count 4.7 X10*3/uL (4.8-10.8)
[2024-01-31] MEDS: ondansetron HCL 4 MG/2 ML VIAL IVPUSH (21:45)
--- NOTE | 2024-01-31 21:46 | PC.NURSE ---
pt reporting nausea and had one episode of vomiting in cat scan, aware, pt medicated per nov. CT complete.
[2024-01-31 21:49] LABS: Alanine Aminotransferase 16 U/L (0-31); Albumin Level 4.2 g/dL (3.5-5.0); Alkaline Phosphatase 55 U/L (39-117); Anion Gap 14 (12-20); Aspartate Amino Transferase 24 U/L (5-31); Bilirubin Total 0.4 mg/dL (0.0-1.0); Blood Urea Nitrogen 15 mg/dL (9-16); Carbon Dioxide 28 mmol/L (22-29); Chloride 100 mmol/L (96-108); Creatinine Clr Calc Pharmacy 50.7; Estimated Glomerular Filt Rate > 60; Glucose Random 120 mg/dL (60-115); Potassium 4.1 mmol/L (3.3-5.1); Sodium 138 mmol/L (135-145); Total Protein 6.7 g/dL (6.5-8.0)
[2024-01-31 22:11] LABS: INTERNATIONAL NORM RATIO 1.8 (0.9-1.1); Prothrombin Time 21.5 SEC (11.1-13.3)
[2024-01-31 22:29] VITALS: BP 144/79; PULSE 66
[2024-01-31 22:32] VITALS: BP 143/77; PULSE 61
[2024-01-31 22:33] VITALS: BP 124/65; PULSE 65
[2024-01-31] MEDS: 0.9 % Sodium Chloride 1,000 ML 999 ML IV (22:39)
--- NOTE | 2024-01-31 22:41 | PC.NURSE ---
fluid bolus administered at this time. pt requesting water, pt given water per dr. truong.
[2024-01-31 23:39] VITALS: BP 142/74; PULSE 65; RESP 14; TEMP 36.6; O2SAT 96
[2024-02-01 00:13] VITALS: BP 142/74; PULSE 65; RESP 14; TEMP 36.6; O2SAT 96
== END 2024-02-01 00:13 | disposition home or self-care (01) ==
PROVIDERS: Emergency Provider Internal Medicine
DX: R29.6 Repeated falls (principal); I10 Essential (primary) hypertension; E78.5 Hyperlipidemia, unspecified; I48.91 Unspecified atrial fibrillation; Z91.81 History of falling; Z95.0 Presence of cardiac pacemaker; Z79.01 Long term (current) use of anticoagulants; Z79.899 Other long term (current) drug therapy
CPT/HCPCS: 36415; 70450; 72125; 80053; 85025; 85610; 85730; 93005; 96361; 96374; 99284; 99285; J2405

== ENCOUNTER → 2024-01-31 21:12 | Outpatient (BNV) | payer MEDICARE, OTHER, SELFPAY | PROVIDERS: Emergency Provider Internal Medicine; Visit Provider Internal Medicine | DX: R94.31 Abnormal electrocardiogram [ECG] [EKG] (principal) | CPT/HCPCS: 93010 ==

== ENCOUNTER 2024-03-29 12:59 | Emergency (ER) | payer MEDICARE, OTHER, SELFPAY ==
--- NOTE | 2024-03-29 | ECG_ITS ---
Test Reason : SYNCOPE Blood Pressure : / mmHG Vent. Rate : 076 BPM Atrial Rate : 076 BPM P-R Int : 246 ms QRS Dur : 094 ms QT Int : 452 ms P-R-T Axes : 000 -25 035 degrees QTc Int : 508 ms Atrial-paced rhythm with prolonged AV conduction Abnormal ECG When compared with ECG of 31-JAN-2024 21:12, No significant changes seen Referred By: Generic ED Physician Electronically Signed By:TRU WHITNEY
[2024-03-29 13:11] VITALS: BP 109/70; BP 116/70; PULSE 74; PULSE 80; RESP 12; TEMP 36.9; O2SAT 95; O2SAT 97; BMI 26.7
--- NOTE | 2024-03-29 13:20 | ED_ITS ---
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 Reports during walk felt lightheaded and went to sit herself on her walker however lowered herself to ground landing on buttock, denies head trauma or LOC. denies any neck/back pain at present, CP/SOB, headache, vision change/loss, focal weakness. Related Data Home Medications ?Medication ?Instructions ?Recorded ?Confirmed amiodarone 100 mg tablet 100 mg PO BEDTIME 09/02/23 09/02/23 amlodipine 5 mg tablet 5 mg PO DAILY 09/02/23 09/02/23 cholecalciferol (vitamin D3) 125 125 mcg PO DAILY 09/02/23 09/02/23 mcg (5,000 unit) tablet (Vitamin D3) citalopram 10 mg tablet 10 mg PO DAILY 09/02/23 09/02/23 gabapentin 300 mg capsule 300 mg PO BEDTIME 09/02/23 09/02/23 polyethylene glycol 3350 17 gram 17 g PO DAILY 09/02/23 09/02/23 oral powder packet (Miralax) rivaroxaban 20 mg tablet (Xarelto) 20 mg PO DAILY@1800 09/02/23 09/02/23 simvastatin 20 mg tablet 20 mg PO DAILY@1800 09/02/23 09/02/23 solifenacin 10 mg tablet 10 mg PO BEDTIME 09/02/23 09/02/23 telmisartan 40 mg tablet 40 mg PO BEDTIME 09/02/23 09/02/23 Previous Rx's ?Medication ?Instructions ?Recorded docusate sodium 100 mg capsule 100 mg PO .daily prn constipation 09/03/23 #30 caps Allergies Allergy/AdvReac Type Severity Reaction Status Date / Time No Known Allergies Allergy Verified 03/29/24 13:14 Review of Systems 2 Review of Systems: Constitutional: No Fever, No Chills ENT/Mouth: No Ear Pain, No Nasal Congestion, No sore throat, No Rhinorrhea, No Swallowing Difficulty Cardiovascular: No Chest Pain, No SOB Respiratory: No Cough, No Sputum Gastrointestinal: No Nausea, No Vomiting, No Diarrhea, No Constipation, No Abdominal pain Genitourinary: No Dysuria, No Urinary Incontinence/retention, No Flank Pain Musculoskeletal: No joint pain, No Myalgias, No Joint Swelling Skin: No Skin Lesions, No rash Neuro: No Weakness, No Numbness, No Paresthesias, +lightheaded Yes all other systems are reviewed and are negative Constitutional: Constitutional: Reports as per HPI Neurologic: Denies Abnormal speech present [facility] Past Medical History Attestation statement: The following information was validated with the patient. 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 Neuropathy Falls frequently Anxious mood Tremors of nervous system Arthritis Hyperlipidemia HTN (hypertension) Atrial fibrillation FH: total knee replacement Pacemaker Surgical History History of hip replacement History of carpal tunnel surgery Family History Family History Mother Dementia Social History Social History Household Members: Children Household Members Other:: DAUGHTER ALEJANDRA Alcohol intake: current Alcohol intake frequency: a few times a month Comment: OCCASIONAL Patient Tobacco Use Status: Never used Tobacco Advance Directives: No Advance Directives Information Provided: Yes Do you have a plan to hurt others: No Plan Physical Exam 2 Vital Signs: Vital Signs: Last Vital Signs Temp 98.5 F 03/29/24 13:11 Pulse 80 03/29/24 17:18 Resp 16 03/29/24 17:18 BP 172/95 H 03/29/24 17:18 Pulse Ox 97 03/29/24 17:18 O2 Del Method Room Air 03/29/24 17:18 BMI result Body Mass Index 26.7 Const: General: cooperative, healthy appearing and no acute distress O rientation/consciousness: patient oriented x3 Limitations: no limitations HEENT: Head: Yes normal to inspection and Yes atraumatic Ears: hearing grossly normal bilaterally General nose exam: Normal external nose present Face and sinus: Yes normal facial exam Throat: Yes posterior oropharynx normal, Yes uvula midline, No uvula laterally displaced and No uvular edema Eyes: General: appearance normal, both eyes and all related structures P upils: Equal, round and reactive pupils present EOM: EOMs intact bilaterally Neck: Neck: Yes normal visual inspection, Yes full ROM and Yes no meningeal signs Resp: Effort & Inspection: normal respiratory effort and no respiratory distress Auscultation: clear to auscultation bilaterally, no crackles, no rales, no rhonchi and no wheezes Cardio: Rate: regular rate Heart sounds: S1 normal heart sound present and S2 normal heart sound present GI: Inspection: Yes normal to inspection Palpation (GI): Soft to palpation, nontender, no guarding and not rigid : General: Yes no CVA tenderness Back/Spine/Pelvis: Other: No midline cervical/thoracic/lumbar spinous tenderness/step-off or deformity Back: no CVA tenderness Skin: Rashes: no rashes Wounds: no wounds Neuro: General: patient oriented x3, gait normal, tone normal, moves all extremities, no meningeal signs, no focal motor deficits and CN's II-XI intact bilaterally Cranial nerves: Yes CN's II-XII intact bilaterally, Yes Equal, round and reactive pupils present and Yes Bilaterally intact EOM present C ognition (Neuro): normal cognition Speech: No Abnormal speech present M otor exam (neuro): 5/5 motor strength present throughout, Pronator motor function not present and no tremor noted Coordination: iceclp-de-mrlb test normal Romberg Test: Negative Extrem: General: Yes normal to inspection Course Course Course Narrative: -no leukocytosis. H and H stable. Initial troponin negative > will obtain 3 hour repeat -COVID/flu/RSV negative. Orthostatic vital signs negative -UA negative 1630--ED care transferred to JAIME Myles pending repeat troponin and dispo per results Reevaluation(s) Reevaluation #1: Repeat troponin negative, patient is stable for discharge Time: 17:57 Medications Administered Discontinued Medications Generic Name Dose Route Start Last Admin Trade Name Freq PRN Reason Stop Dose Admin Sodium Chloride 500 mls @ 999 mls/hr 03/29/24 13:30 03/29/24 14:42 Ns IV 03/29/24 14:00 Infused .Q31M TREMAINE Infusion Medical Decision Making Medical Decision Making MDM Narrative: 84-year-old female with a past medical history of peripheral neuropathy, arthritis, HLD, HTN, AFib on Xarelto, pacemaker, presenting to the ED via EMS complaining near syncopal episodes/lightheadedness 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 On exam vital signs stable, NAD, nontoxic appearing, no focal neuro deficits, no midline spinous tenderness throughout. No evidence of trauma. Concern for ACS vs dehydration/metabolic abnormalities vs vasovagal. Low suspicion for ICH or fractures. Unlikely dissection plan: EKG, labs, UA, viral studies, orthostatics, IVF Please refer to course for remaining clinical decision making, interpretation of labs/imaging results, and discussions with consultants and/or family members. Differential Diagnosis Differential Diagnoses: The differential diagnosis associated with the presentation includes As above Admission/Observation Consideration of admission/observation: Escalation of care including admission/observation considered Lab Data [facility] Lab Attestation statement: I reviewed the patient's lab results. 03/29/24 13:30 03/29/24 13:30 Labs: Lab Results 03/29/24 03/29/24 03/29/24 Range/Units 13:30 13:38 15:12 WBC 4.0 L (4.8-10.8) X10*3/uL RBC 3.87 L (4.20-5.50) X10*6/uL Hgb 12.2 (12.0-16.0) g/dl Hct 35.8 L (37.0-47.0) % MCV 92.5 (80.0-98.0) fL MCH 31.5 (27.0-33.0) pg MCHC 34.1 (31.0-35.0) g/dl RDW 12.8 (11.0-16.0) % Plt Count 191 (160-400) X10*3/uL MPV 11.0 (9.4-12.3) fL Immature Gran % (Auto) 0.3 (0.0-0.4) % Neut % (Auto) 72.2 (45-73) % Lymph % (Auto) 15.9 L (20-40) % [place] % (Auto) 8.8 (2-11) % Eos % (Auto) 1.8 (0-4) % Baso % (Auto) 1.0 (0-2) % Lymph # (Auto) 0.6 L (1.2-4.9) X10*3/uL [place] # (Auto) 0.4 (0.1-1.2) X10*3/uL Eos # (Auto) 0.1 (0.0-0.4) X10*3/uL Baso # (Auto) 0.0 (0.0-0.2) X10*3/uL Abs Immat Gran (auto) 0.01 (0.00-0.03) X10*3/uL Absolute Neuts (auto) 2.9 (2.0-8.3) x10*3/uL Absolute Nucleated RBC 0.000 (0.0-0.012) X10*3/uL Nucleated RBC % (auto) 0.0 (0.0-0.2) /100WBC PT 16.2 H D (11.1-13.3) SEC INR 1.3 H (0.9-1.1) Sodium 136 (135-145) mmol/L Potassium 4.5 (3.3-5.1) mmol/L Chloride 102 (96-108) mmol/L Carbon Dioxide 27 (22-29) mmol/L Anion Gap 12 (12-20) BUN 14 (9-16) mg/dL Creatinine 0.96 (0.5-1.4) mg/dL Estim Creat Clear Calc 45.8 Estimated GFR 55 POC Glucose 111 (60-115) mg/dL Random Glucose 105 (60-115) mg/dL Calcium 8.8 (8.4-10.2) mg/dL Magnesium 1.8 (1.6-2.6) mg/dL Total Bilirubin 0.4 (0.0-1.0) mg/dL AST 17 (5-31) U/L ALT 12 (0-31) U/L Alkaline Phosphatase 56 (39-117) U/L Troponin I High Sens 4.1 (<3.5-17.0) ng/L Total Protein 5.8 L (6.5-8.0) g/dL Albumin 3.7 (3.5-5.0) g/dL Urine Color Yellow Urine Appearance Clear Urine pH 7.5 (5.0-9.0) Ur Specific [place] 1.010 (1.005-1.025) Urine Protein Negative (Neg-Trace) mg/dL Urine Glucose (UA) Negative (Negative) mg/dL Urine Ketones Negative (Negative) mg/dL Urine Blood Negative (Negative) Urine Nitrite Negative (Negative) Ur Leukocyte Esterase Trace H (Negative) Urine RBC 0-2 (0-2) /HPF Urine WBC 0-5 (0-5) /HPF Ur Squamous Epith Cells 0-2 (0-2) /HPF Urine Bacteria None Seen (None Seen) Hyaline Casts 0-2 (0-2) /LPF Influenza Type A (PCR) NEGATIVE (Negative) Influenza Type B (PCR) NEGATIVE (Negative) RSV RNA Qual (PCR) NEGATIVE (Negative) SARS-CoV-2 RNA (RT-PCR) NEGATIVE (Negative) 03/29/24 Range/Units 16:22 WBC (4.8-10.8) X10*3/uL RBC (4.20-5.50) X10*6/uL Hgb (12.0-16.0) g/dl Hct (37.0-47.0) % MCV (80.0-98.0) fL MCH (27.0-33.0) pg MCHC (31.0-35.0) g/dl RDW (11.0-16.0) % Plt Count (160-400) X10*3/uL MPV (9.4-12.3) fL Immature Gran % (Auto) (0.0-0.4) % Neut % (Auto) (45-73) % Lymph % (Auto) (20-40) % [place] % (Auto) (2-11) % Eos % (Auto) (0-4) % Baso % (Auto) (0-2) % Lymph # (Auto) (1.2-4.9) X10*3/uL [place] # (Auto) (0.1-1.2) X10*3/uL Eos # (Auto) (0.0-0.4) X10*3/uL Baso # (Auto) (0.0-0.2) X10*3/uL Abs Immat Gran (auto) (0.00-0.03) X10*3/uL Absolute Neuts (auto) (2.0-8.3) x10*3/uL Absolute Nucleated RBC (0.0-0.012) X10*3/uL Nucleated RBC % (auto) (0.0-0.2) /100WBC PT (11.1-13.3) SEC INR (0.9-1.1) Sodium (135-145) mmol/L Potassium (3.3-5.1) mmol/L Chloride (96-108) mmol/L Carbon Dioxide (22-29) mmol/L Anion Gap (12-20) BUN (9-16) mg/dL Creatinine (0.5-1.4) mg/dL Estim Creat Clear Calc Estimated GFR POC Glucose (60-115) mg/dL Random Glucose (60-115) mg/dL Calcium (8.4-10.2) mg/dL Magnesium (1.6-2.6) mg/dL Total Bilirubin (0.0-1.0) mg/dL AST (5-31) U/L ALT (0-31) U/L Alkaline Phosphatase (39-117) U/L Troponin I High Sens 4.0 (<3.5-17.0) ng/L Total Protein (6.5-8.0) g/dL Albumin (3.5-5.0) g/dL Urine Color Urine Appearance Urine pH (5.0-9.0) Ur Specific [place] (1.005-1.025) Urine Protein (Neg-Trace) mg/dL Urine Glucose (UA) (Negative) mg/dL Urine Ketones (Negative) mg/dL Urine Blood (Negative) Urine Nitrite (Negative) Ur Leukocyte Esterase (Negative) Urine RBC (0-2) /HPF Urine WBC (0-5) /HPF Ur Squamous Epith Cells (0-2) /HPF Urine Bacteria (None Seen) Hyaline Casts (0-2) /LPF Influenza Type A (PCR) (Negative) Influenza Type B (PCR) (Negative) RSV RNA Qual (PCR) (Negative) SARS-CoV-2 RNA (RT-PCR) (Negative) Independent Interpretation I performed an independent interpretation of an: EKG Radiology Impression Discussion of test interpretation with radiology: I have reviewed the radiologist's reading. Independent Historian Clinical information obtained from an independent historian. History obtained from or confirmed by: EMS External Record Review External record reviewed: Inpatient record, Office record, Outpatient record, Prior outpatient labs, Prior outpatient radiology, Primary care record and Outside ED record Tests considered The following testing was considered but not selected: As above Chronic Conditions Patient?s care impacted by: Hypertension and Other (AFib on Xarelto) Discharge Plan Discharge Clinical Impression: Lightheadedness Patient Disposition: Home, Self-Care Instructions: Lightheadedness (ED) Additional Instructions: Your blood work is reassuring. Your urine is not infected Please follow-up with her doctor Make sure staying hydrated Change positions slowly If her symptoms persist or worsen, recur, you fall or hit her head, have chest pain or shortness of breath return to the ED Prescriptions: No Action citalopram 10 mg tablet 10 mg PO DAILY amlodipine 5 mg tablet 5 mg PO DAILY simvastatin 20 mg tablet 20 mg PO DAILY@1800 telmisartan 40 mg tablet 40 mg PO BEDTIME gabapentin 300 mg capsule 300 mg PO BEDTIME amiodarone 100 mg tablet 100 mg PO BEDTIME solifenacin 10 mg tablet 10 mg PO BEDTIME Xarelto 20 mg tablet 20 mg PO DAILY@1800 polyethylene glycol 3350 [Miralax] 17 gram Powder In Packet 17 g PO DAILY cholecalciferol (vitamin D3) [Vitamin D3] 125 mcg (5,000 unit) Tablet 125 mcg PO DAILY docusate sodium 100 mg Capsule 100 mg PO .daily prn Qty: 30 0RF Referrals: Physician,Nonstaff [Primary Care Provider] - Print Language: Greek
[2024-03-29 13:36] LABS: MANUAL DIFF FLAG NO
[2024-03-29 13:37] LABS: Eosinophils Absolute Auto 0.1 X10*3/uL (0.0-0.4); Eosinophils Percent Auto 1.8 % (0-4); Hematocrit 35.8 % (37.0-47.0); Hemoglobin 12.2 g/dl (12.0-16.0); Imm Gran Abs Auto 0.01 X10*3/uL (0.00-0.03); Imm Gran Pct Auto 0.3 % (0.0-0.4); Lymphocytes Absolute Auto 0.6 X10*3/uL (1.2-4.9); Lymphocytes Percent Auto 15.9 % (20-40); Mean Corpuscular HGB Conc 34.1 g/dl (31.0-35.0); Mean Corpuscular Hemoglobin 31.5 pg (27.0-33.0); Mean Corpuscular Volume 92.5 fL (80.0-98.0); Monocytes Absolute Auto 0.4 X10*3/uL (0.1-1.2); Monocytes Percent Auto 8.8 % (2-11); Neutrophils Absolute Auto 2.9 x10*3/uL (2.0-8.3); Neutrophils Percent Auto 72.2 % (45-73); Platelet Count 191 X10*3/uL (160-400); Red Blood Count 3.87 X10*6/uL (4.20-5.50); Red Cell Distribution Width 12.8 % (11.0-16.0)
[2024-03-29 13:42] LABS: INTERNATIONAL NORM RATIO 1.3 (0.9-1.1); Prothrombin Time 16.2 SEC (11.1-13.3)
[2024-03-29 13:43] LABS: Glucose, Whole Blood 111 mg/dL (60-115)
[2024-03-29 13:49] VITALS: BP 111/65; BP 120/69; BP 126/71; PULSE 74; PULSE 76; PULSE 80
[2024-03-29] MEDS: 0.9 % Sodium Chloride 500 ML 999 ML IV (13:55)
[2024-03-29 13:56] LABS: Alanine Aminotransferase 12 U/L (0-31); Albumin Level 3.7 g/dL (3.5-5.0); Alkaline Phosphatase 56 U/L (39-117); Anion Gap 12 (12-20); Aspartate Amino Transferase 17 U/L (5-31); Bilirubin Total 0.4 mg/dL (0.0-1.0); Blood Urea Nitrogen 14 mg/dL (9-16); Calcium 8.8 mg/dL (8.4-10.2); Carbon Dioxide 27 mmol/L (22-29); Chloride 102 mmol/L (96-108); Creatinine Clr Calc Pharmacy 45.8; Estimated Glomerular Filt Rate 55; Glucose Random 105 mg/dL (60-115); Magnesium 1.8 mg/dL (1.6-2.6); Potassium 4.5 mmol/L (3.3-5.1); Sodium 136 mmol/L (135-145); Total Protein 5.8 g/dL (6.5-8.0)
[2024-03-29 14:03] LABS: Troponin-I High Sensitivity 4.1 ng/L (<3.5-17.0)
[2024-03-29 14:13] LABS: Influenza A PCR NEGATIVE (Negative); Influenza B PCR NEGATIVE (Negative); Resp Syncy Virus RNA Qual PCR NEGATIVE (Negative); SARS COV2 PCR INHOUSE NEGATIVE (Negative)
[2024-03-29 15:21] LABS: Appearance Urine Clear; Color Urine Yellow; Glucose Urine UA Negative (Negative); Leukocyte Esterase Urine Trace (Negative); Nitrite Urine Negative (Negative); PH 7.5 (5.0-9.0); UMIC TRIGGER UACC YES; Urine Blood Negative (Negative); Urine Ketones Negative (Negative); Urine Protein Negative (Neg-Trace)
[2024-03-29 15:23] LABS: Bacteria Urine None Seen (None Seen); Hyaline Casts Urine 0-2 /LPF (0-2); RBC Urine 0-2 /HPF (0-2); Squamous Epithelial Cell Urine 0-2 /HPF (0-2); WBC Urine 0-5 /HPF (0-5)
[2024-03-29 17:18] VITALS: BP 172/95; PULSE 80; RESP 16; O2SAT 97
[2024-03-29 18:10] VITALS: BP 172/95; PULSE 80; RESP 16; TEMP 36.9; O2SAT 97
== END 2024-03-29 18:11 | disposition home or self-care (01) ==
PROVIDERS: Physician Assistant; Emergency Provider Emergency Medicine
DX: R42 Dizziness and giddiness (principal); I10 Essential (primary) hypertension; E78.5 Hyperlipidemia, unspecified; I48.91 Unspecified atrial fibrillation; G62.9 Polyneuropathy, unspecified; Z95.0 Presence of cardiac pacemaker; Z03.818 Encounter for observation for suspected exposure to other biological agents ruled out; Z91.81 History of falling; Z79.01 Long term (current) use of anticoagulants; Z79.02 Long term (current) use of antithrombotics/antiplatelets; Z79.899 Other long term (current) drug therapy
CPT/HCPCS: 0241U; 36415; 80053; 81001; 82947; 83735; 84484; 85025; 85610; 93005; 96360; 99284

== ENCOUNTER → 2024-03-29 13:13 | Outpatient (BNV) | payer MEDICARE, OTHER, SELFPAY | PROVIDERS: Emergency Provider Emergency Medicine; Visit Provider Internal Medicine | DX: R55 Syncope and collapse (principal); R94.31 Abnormal electrocardiogram [ECG] [EKG] | CPT/HCPCS: 93010 ==

== ENCOUNTER 2024-04-03 14:00 | Outpatient (RCR) | payer MEDICARE, OTHER, SELFPAY ==
[2024-02-08 13:40] VITALS: BP 124/60; PULSE 89; O2SAT 99
--- NOTE | 2024-02-09 15:35 | MHC.PT.EP ---
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 Ye for treatment of PT eval and treat, R29.6 Repeated falls ; Evaluate for walker and gait/balance training referred by Tiera Ye 11/07/23. Pt exhibits history of falls with most recent fall in 01/31/24 with history of numerous falls in the past year. Pt expresses history of vertigo sx in the past. Falls appear multi-factorial. 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 Sensory nerves were within acceptable limits given age and without evidence of a stocking-glove distribution. Pt has hammer toes, weakness of core/hip abd, impaired SLS control, Pt has had CT/x-rays as noted above. Pt's will benefit from skilled PT 2x/week x 4 weeks to reinforce patient and caregiver education re: walker use, std cane use of negotiation of stairs, balance tasks, safety review additional core/hip strengthening. Precautions include history of R DEISY, pacemaker, Afib on Xarelto, advanced age, history of vertigo ,history of falls, [place] (wears hearing aide). Pt's daughter Mayuri present alongside patient for initial evaluation. Patient and daughter both educated, patient was able to recall and demonstrate improved safety with walker training following initial evaluation. Frequency and Duration: The patient will be seen 2x/week x 4 weeks Short Term Goals: 1. Demonstrate good carryover of hand placement and safety with use of walker. 2. Demonstrate good safety negotiating use of 6 inch step with use of std cane. 3. Pt will demonstrate good symmetry with bridging. 4. Pt will demonstate strength hip abd to 4+/5 B. (L IR 3/5, R 4/5) Mcc Goals: 1. Pt will demonstrate good dynamic balance in community ambulation with use of walker. 2. Pt will demonstrate strength 5/5 hip abduction B. 3. Pt will demonstrate good eccentric control for functional transfers. 4. Pt will demonstrate safe technique for negotiation of 6 inch step with use of std cane (R UE) and single rail on L. Treatment Plan: Modalities to reduce pain, spasms and effusion. Manual therapy to restore motion and function. Therapeutic exercise to improve strength and flexibility. Neuromuscular re-education for posture and balance. Therapeutic activities to return to functional activities of daily living. Electronically signed by: Ginger Gan, PT, DPT Please sign and return to therapist. Thank you for your referral.
== END 2024-09-25 11:30 | disposition home or self-care (01) ==
LOC: HO.PTWFD 14:00
PROVIDERS: PCP Pediatrics; Visit Provider Psychiatry & Neurology Neurology
DX: R29.6 Repeated falls (principal)
CPT/HCPCS: 97110; 97112; 97116; 97163; 97530; 97535

== ENCOUNTER 2024-10-03 15:18 | Outpatient (AMB) | payer MEDICARE, OTHER, SELFPAY ==
--- NOTE | 2024-10-03 15:25 | A.OFFVIS_ITS ---
Vital Signs 10/03/24 15:33 Height 5 ft 7 in Weight 165 lb 8 oz BMI 25.9 BP 170/98 H Blood Pressure Location Lt brachial Position Sitting Pulse 76 Pulse Source Pulse Oximeter Pulse Oximetry (%) 97 Oxygen Delivery Method Room Air Intake Visit Reasons: Follow up Intake Note: Patient presents for a follow up for Ataxia. Pts daughter reports pt having syncope episodes more often. Media Senior Recruiter Required: No Accompanied by: Daughter Allergies No Known Allergies Allergy (Verified 10/03/24 15:33) HPI Comments Details: 84y/o female comes for evaluation of multiple falls, gait and balance difficulty. PMH Pacemaker, Watchman Procedure, Hammer toes, Syncope Last MondaySep 27, she had some dizziness, and started gagging, she thinks it was because she was dehydrated. She was alone and her friend who is a nurse came over and sat with her. Falls, 2023 mechanical going upstairs, bumped her legs against a concrete step. Syncope episodes majority recently 2x episodes, she was drinking lots of water for her catscan, watchman procedure. She has white coat hypertension and wearing better shoes now. She has nausea, syncope and vomiting, along with numbness in the feet. Her feet feel like blocks. She denies pins and needles or muscle cramps, denies vision changes. Goes to bed early 11pm takes her 2.5 to fall asleep, and will stay asleep until her 7am alarm awakes her. She no longer goes to water aerobics, She has lunch at noon, veggies salad, cheese, then reads and does laundry, changes her bed linen, empties the college admissions counselor. She eats dinner with her family and has a voracious appetite for reading, sometimes watches tv then goes to the bathroom and does her night routine then goes to bed but doesn't fall asleep. She ruminates and can't turn off the thoughts running through her mind. She doesn't nap during the day. 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 Hammer toes of both feet Neuropathy Falls frequently Anxious mood Tremors of nervous system Arthritis Hyperlipidemia HTN (hypertension) Atrial fibrillation FH: total knee replacement Pacemaker Surgical History History of hip replacement History of carpal tunnel surgery Family History Mother Dementia Social History Household Members: Children Household Members Other:: DAUGHTER ALEJANDRA Alcohol intake: current Alcohol intake frequency: a few times a month Comment: OCCASIONAL Patient Tobacco Use Status: Never used Tobacco Review of Systems Const All systems reviewed & are unremarkable except as noted in HPI and below Physical Exam Vital Signs: Last Vital Signs Pulse 76 10/03/24 15:33 BP 170/98 H 10/03/24 15:33 Pulse Ox 97 10/03/24 15:33 Oxygen Delivery Method Room Air 10/03/24 15:33 BMI result Body Mass Index 25.9 Const General: cooperative, healthy appearing, comfortable and no acute distress Nutritional Appearance: average body habitus Orientation/consciousness: patient oriented x3 Neuro Other: Hammer toes jose feet Gait- mild stoop, normal base , mild off balance, has difficulty with lifting her right foot Neck - mild head tremors, decreased range of motion in the neck General: patient oriented x3, tone normal, moves all extremities and no focal motor deficits Cranial nerves: Yes Normal facial strength present and Yes Symmetric palate elevation present Cognition (Neuro): normal cognition Deep tendon reflexes (DTR's): Right triceps reflex intensity grade: 1+, Left triceps reflex intensity grade: 1+, Rt Biceps (C5, C6): 1+, Left biceps reflex intensity grade: 1+, Right brachioradialis reflex intensity grade: 1+, Left brachioradialis reflex intensity grade: 1+, Right patellar reflex intensity grade: 2+, Left patellar reflex intensity grade: 2+, Right ankle reflex intensity grade: 1+ and Left ankle reflex intensity grade: 1+ Coordination: [id number] test normal Psych Thought process: Normal thought process present Thought content: Normal thought content present Results Reviewed Results Reviewed: IMPRESSION: 11/2023 1. This is an abnormal study. 2. 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 3. Given that sensory nerves were within acceptable limits given age, there are no other findings to support diagnosis of peripheral neuropathy. 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 Sensory nerves were within acceptable limits given age and without evidence of a stocking-glove distribution. If past EMG can be obtained, we could compare results. Consider further evaluation for lumbar radiculopathy or spinal stenosis. 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 Electrocardiogram 03/2024 Test Reason : SYNCOPE Blood Pressure : / mmHG Vent. Rate : 076 BPM Atrial Rate : 076 BPM P-R Int : 246 ms QRS Dur : 094 ms QT Int : 452 ms P-R-T Axes : 000 -25 035 degrees QTc Int : 508 ms Atrial-paced rhythm with prolonged AV conduction Abnormal ECG When compared with ECG of 31-JAN-2024 21:12, No significant changes seen CT/CT head/brain wo IV con IMPRESSION: 1. No acute intracranial pathology. Mild chronic cerebral microangiopathy. 2. No acute fracture or malalignment in the cervical spine. Multilevel degenerative spondylosis in the cervical spine. 3. 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 [facility] 10/2023 Moderate senescent changes and microangiopathic changes. Assessment & Plan Assessment & Plan (1) 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: Comment: peripheral neuropathy and hammer toes Code(s): G64 - Other disorders of peripheral nervous system; R26.9 - Unspecified abnormalities of gait and mobility Category: Medical (2) Gait disorder: Comment: multifactorial - hammer toes, neuropathy etc Code(s): R26.9 - Unspecified abnormalities of gait and mobility Category: Medical (3) Falls frequently: Code(s): R29.6 - Repeated falls Category: Medical (4) Neuropathy: Code(s): G62.9 - Polyneuropathy, unspecified Category: Medical (5) Hammer toes of both feet: Code(s): M20.41 - Other hammer toe(s) (acquired), right foot; M20.42 - Other hammer toe(s) (acquired), left foot Category: Medical (6) Peripheral neuropathy: Code(s): G62.9 - Polyneuropathy, unspecified Category: Medical (7) Syncope: Code(s): R55 - Syncope and collapse Category: Medical Qualifiers: Syncope type: vasovagal syncope Qualified Code(s): R55 - Syncope and collapse Plan Discussed the possible causes of her falls- a combination of mechanical and sensory issues. Per Speech and Language Pathologist she has some mild weakness in visual processing of complex visual information, with visual confusion at times. Continue engaging in conversations, recalling details from interactions, attending cultural events, and maintaining strong communication skills. 08/21/24. No evidence of cerebellar ataxia or extrapyramidal symptoms. Vasovagal/ carotid sinus? Syncope Discussed various strategies to prevent falls and syncope. Uses a walker, and wearing good shoes for balance, declined PT for gait and balance today. start alpha lipoic acid 500-600 mg qd 11/2023 EMG NCS to assess peripheral neuropathy unlikely, and more likely peripheral radiculopathy L4/L5/S1 Vit B12 was normal in November 2023. F/U as needed Medications: New alpha lipoic acid 200 mg PO DAILY 30 tabs 2RF Gait balance MDD 200mg G62.9 - Polyneuropathy, unspecified, R26.9 - Unspecified abnormalities of gait and mobility Coding Level of Care Code Est Pt Level 4 (89899) Complex EM visit Add On G2211 Diagnoses 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 G64; R26.9 Gait disorder R26.9 Falls frequently R29.6 Neuropathy G62.9 Hammer toes of both feet M20.41; M20.42 Peripheral neuropathy G62.9 Vasovagal syncope R55 Syncope type: vasovagal syncope Time Spent (min) 40
[2024-10-03 15:33] VITALS: BP 170/98; PULSE 76; O2SAT 97; BMI 25.9
--- OUTSIDE RECORDS SUMMARY | 2024-10-03 19:06 | XMS_ITS | Clinical Summary ---
Author Organization [facility] Address [address] [place] [id number] Care Team Providers Care Patternmaker Bench Name Role Phone Flex Roque MD Primary Care Provider [phone] Allergies No known active allergies Medications Medication Sig Dispensed Refills Start Date End Date Status Cholecalciferol (D 5000) 125 MCG (5000 UT) capsule Take 5,000 Units by mouth. Active citalopram (CeleXA) 10 MG tablet TAKE 1 TABLET DAILY 08/18/2020 Active gabapentin (NEURONTIN) 300 MG capsule TAKE 1 CAPSULE DAILY 12/10/2019 Active omalizumab (XOLAIR) 150 MG/ML Solution Prefilled Syringe injection Inject under the skin. Active polyethylene glycol (miraLAx) 17 GM/SCOOP powder Take 17 g by mouth. 04/30/2020 Active rivaroxaban (XARELTO) 20 MG tablet Take 20 mg by mouth. 11/24/2020 Active simvastatin (ZOCOR) 20 MG tablet TAKE 1 TABLET NIGHTLY AT BEDTIME 11/03/2020 Active solifenacin (VESICARE) 10 MG tablet TAKE 1 TABLET DAILY 11/27/2020 Active telmisartan (MICARDIS) 80 MG tablet Take 80 mg by mouth. 11/30/2020 Active cephalexin (KEFLEX) 500 MG capsuleIndications:A cute cystitis with hematuria Take 1 capsule (500 mg total) by mouth 3 (three) times a day. 21 capsule 12/22/2020 Active Active Problems No known active problems Social History Tobacco Use Types Packs/Day Years Used Date Smoking Tobacco: Never Assessed Sex and Gender Information Value Date Recorded Sex Assigned at Not on file Gender Identity Not on file Sexual Orientation Not on file Last Filed Vital Signs Vital Sign Reading Time Taken Comments Blood Pressure 169/83 12/22/2020 8:40 AM EDT Pulse 77 12/22/2020 8:40 AM EDT Temperature 37.1 ??C (98.8 ??F) 12/22/2020 8:40 AM ED T Respiratory Rate - - Oxygen Saturation 98% 12/22/2020 8:40 AM EDT Inhaled Oxygen Concentration - - Weight 79.8 kg (176 lb) 12/22/2020 8:40 AM EDT Height 171.5 cm (5' 7.5 ) 12/22/2020 8:40 AM EDT Body Mass Index 27.16 12/22/2020 8:40 AM EDT Plan of Treatment Health Maintenance Due Date Last Done Comments DTaP/Tdap/Td Vaccines (1 - Tdap) 1958 Pneumococcal Vaccines 50+ (1 of 1 - PCV) 1989 Zoster (Shingles) Vaccine (1 of 2) 1989 DXA Bone Density (Females,Ages 65 and older) 01/06/2004 RSV Vaccine 60 years and older and Patients (1 - 1-dose 75+ series) 2014 Influenza Vaccine 04/04/2024 05/14/2020, 06/10/2019 COVID-19 Vaccine (3 - 2023-2 5 season) 2024 10/31/2020, 10/09/2020 Hepatitis B Vaccines Aged Out No long er eligible based on patient's age to complete this topic Care Teams Patternmaker Bench Relationship Specialty Start Date End Date Flex Roque MD [address] [place] [address] PCP - General Pediatric, General 05/13/20
--- OUTSIDE RECORDS SUMMARY | 2024-10-03 19:06 | XMS_ITS | Data Portability ---
Author Organization [place] - .[facility] Address [address] [place] [phone] Assessment No assessment recorded. Plan of Treatment Reminders Order Date Submit Date Provider Last Modified By Organization Details Last Modified Time Details Appointments None recorded. Lab None recorded. Referral None recorded. Procedures None recorded. Surgeries None recorded. Imaging None recorded. Medication Orders erythromy dominick 5 mg/gram (0.5 %) eye ointment 2022 023 [email or web address] [id number], [address], [place], [address], 07:16:14 Patient TargetsNo targets recorded. Patient Instructions Encounter Date Encounter Id Patient Instructions Last Modified By Organization Details Last Modified Time 01/04/2023 [id number] A healthy lifestyle: care instructions jessica Not available 01/06/2023 07:16:14 Thank you for visiting [facility]. There are two ways to view your lab results: ? 1. ? ? ? The [employer] mohinder is available to all patients 18 and older in the Mohinder Store and [employer] bluebird bio. First-time mohinder users will need to create an account; please note you? l l need to select a login and password for the mohinder versus just using your patient portal login credentials. Your lab results will be posted to the [employer] mohinder as soon as they? r e available. ? 2. ? ? ? Via email , as soon as lab results are available. If you don? t receive an email within the estimated time frame, give our Aftercare team a call at [phone]. warm compresses every 1--2 hours while awake Stye Your Care Instructions: Styes and chalazia (say [id number]- ) are both conditions that can cause swelling of the eyelid. A stye is an infection in the root of an eyelash. The infection causes a tender red lump on the edge of the eyelid. The infection can spread until the whole eyelid becomes red and inflamed. Styes usually break open, and a tiny amount of pus drains. They usually clear up on their own in about a week, but they sometimes need treatment with antibiotics. A chalazion is a lump or cyst in the eyelid (chalazion is singular; chalazia is plural). It is caused by swelling and inflammation of deep oil glands inside the eyelid. Chalazia are usually not infected. They can take a few months to heal. If a chalazion becomes more swollen and painful or does not go away, you may need to have it drained by your doctor. Follow-up care is a forman part of your treatment and safety. Be sure to make and go to all appointments, and call your doctor if you are having problems. It's also a good idea to know your test results and keep a list of the medicines you take. How can you care for yourself at home? Do not rub your eyes. Do not squeeze or try to open a stye or chalazion. To help a stye or chalazion heal faster: Put a warm, moist compress on your eye for 5 to 10 minutes, 3 to 6 times a day. Heat often brings a stye to a point where it drains on its own. Keep in mind that warm compresses will often increase swelling a little at first. Do not use hot water or heat a wet cloth in a microwave oven. The compress may get too hot and can burn the eyelid. Always wash your hands before and after you use a compress or touch your eyes. If the doctor gave you antibiotic drops or ointment, use the medicine exactly as directed. Use the medicine for as long as instructed, even if your eye starts to feel better. To put in eyedrops or ointment: Tilt your head back, and pull your lower eyelid down with one finger. Drop or squirt the medicine inside the lower lid. Close your eye for 30 to 60 seconds to let the drops or ointment move around. Do not touch the ointment or dropper tip to your eyelashes or any other surface. Do not wear eye makeup or contact lenses until the stye or chalazion heals. Do not share towels, pillows, or washcloths while you have a stye. When should you call for help? Call your doctor now or seek immediate medical care if: You have pain in your eye. You have a change in vision or loss of vision. Redness and swelling get much worse. Watch closely for changes in your health, and be sure to contact your doctor if: Your stye does not get better in 1 week. Your chalazion does not start to get better after several weeks. [email or web address] Not available 01/04/2023 10:54:38 Reason for Referral None Reported. Problems Name Problem SNOMED Code Status Onset Date Resolution Date Notes Provider Name and Address Organization Details Recorded Time Hypertensive disorder 35969108 Active 2022 JOSEPH Cassidy - .[facility] 10:45:45 Seizure 29985798 Active 2022 JOSEPH Cassidy - .[facility] 10:46:06 Chronic urticaria 19858228 Active 2022 JOSEPH Cassidy - .[facility] 10:46:31 Problem Notes None recorded. Medical Equipment None Reported. Allergies No known drug allergies Medications Name Sig Start Date Stop Date Status Note LastModified by Organization Details LastModified Time erythromycin 5 mg/gram (0.5 %) eye ointment Apply 1 application every 4 hours by ophthalmic route for 7 days. 2022 active Not Available Not Available Not Avai lable Norvasc active Not Available Not Avail able Not Available Zocor active Not Available Not Availa ble Not Available Pacerone active Not Available Not Avai lable Not Available Celexa active Not Available Not Availa ble Not Available Neurontin active Not Available Not Clementina ilable Not Available Micardis active Not Available Not Avai lable Not Available Miralax active Not Available Not Avail able Not Available omalizumab active Not Available Not Av ailable Not Available Vesicare active Not Available Not Avai lable Not Available Xarelto active Not Available Not Avail able Not Available Vitals Date Recorded Heart rate Body temperature Respiratory rate Oxygen saturation Oxygen saturation in Arterial blood by Pulse oximetry Systolic blood pressure Diastolic blood pressure Provider Name and Address Organization Details Last Updated DateTime 3 89 /min 98.3 [degF] 16 /min 98 % 98 % 143 mm[Hg] 87 mm[Hg] Chhaya RUIZ - .[facility] 3 10:13:32 Social History Question Answer Notes LastModified by Organizat ion Details LastModified Time RISK LEVEL - Segmentation Level 2 - Chronic Dx/primary Care Treatable [id number] Information not available 02/15/2023 Sex: Unknown Functional Status None recorded. Mental Status None recorded. Family History Nothing Reported. Medical History No medical history recorded. Gynecological HistoryNo gynecological history recorded. Obstetrics History GPAL:G 0 P 0 0 0 0 Past Encounters Encounter ID Performer Location Encounter Start Date Encounter Closed Date Diagnosis/Indication Diagnosis SNOMED-CT Code Diagnosis ICD10 Code Diagnosis Note [id number] FREDRICK RIVERA [facility] [place] [address] [place] [address] 01/04/2023 09:48:43 01/04/2023 10:49:05 Hordeolum externum of upper eyelid of right eye [id number] 62989 H00.011 Health Concerns Section Related Observation LastModified by Organization Detai ls LastModified Time None Recorded Concern Status LastModified by Organization Details LastModified Time None Recorded Advance Directives Directive None Recorded Payers Encounter Date Sequence Insurance Name Policy Number Policy Vieyra Covered Member ID Vieyra Member ID Guarantor Name 01/04/2023 2 FOR LIFE () Kaci Huff [id number] Kaci Hernandez 01/04/2023 1 [place]ARE) Kaci Huff [id number] Kaci [facility] Notes Date Note Type Note Provider Name and Address Organization Details Recorded Time 01/04/2023 text/html Eye Complaint - cmdReported bypatient.Patient presents with:right Eye complaint which began 2-3 days ago Pertinent findings:No eye redness; No eye discharge; No contact lens use; No photophobia; No eye trauma; No vision change; No fever; No cough; No ear symptoms; No throat symptoms; No nasal symptoms;(+) eye pain;(+) eyelid swellingNotes:pt presents with RT upper eyelid pain and swelling that started 2 days ago. pt used warm compresses which helped. JOSEPH Antonio - .[facility] 01/04/2023 10:54:43 OBGyn Episode No OBEpisode recorded.
--- OUTSIDE RECORDS SUMMARY | 2024-10-03 19:06 | XMS_ITS | Continuity of Care Document ---
Author Organization [facility] ter Address [address] [place] [address]- Care Team Providers Care Unit Manager [employer] Name Role Phone May Roque MD Primary Care Physician [phone] [id number] Date(s): 09/11/24 - 09/11/[address] [address]- Discharge Disposition: A-D/C Home Attending Physician: Ellyn CHILDERS, Jolie Cannon Admitting Physician: Jolie Ragland MD Referring Physician: Dean Salazar MD Encounter Type: Disch IP Allergies, Adverse Reactions, Alerts Substance Criticality Severity Reaction Reaction Severity Status Adhesive Bandage Act nabeel Medications amiodarone 100 mg oral tablet 1 tablet = 100 mg, By Mouth, Daily at supper, 0 Refills, Maintenance, 03/04/23 3:52:00 PM EDT, Partial fill upon patient request if the prescription is for a schedule II opioid drug. Start Date: 03/04/23 Status: Ordered Repeat number: 1 aspirin 81 mg oral delayed release tablet 81 mg, 1, tablet, By Mouth, Daily, # 90 tablet, Refills 3, Tot. Refills 3, Maintenance, 09/11/24 12:32:00 PM EST, Route to Pharmacy Electronically, [facility] #[id number], Partial fill upon patient request if the prescription is for a schedule II opioid drug., 172.72, cm, 09/11/24 10:16:00 EST, Height, 73.8, kg, 09/11/24 10:16:00 EST, Dry Weight Start Date: 09/11/24 Stop Date: 09/06/25 Status: Ordered Quantity: 90.0 Unit: tablet Repeat number: 4 cetirizine 10 mg oral tablet 1 tablet = 10 mg, By Mouth, Daily, PRN allergy, Maintenance, 03/04/23 3:58:00 PM EDT, Tablet, Partialfill upon patient request if the prescription is for a schedule II opioid drug. Start Date: 03/04/23 Status: Ordered Repeat number: 1 citalopram 10 mg oral tablet 1 tablet = 10 mg, By Mouth, Daily in AM, 0 Refills, Maintenance, 05/21/21 9:25:00 PM EDT, Partial fill upon patient request if the prescription is for a schedule II opioid drug. Start Date: 05/21/21 Status: Ordered Repeat number: 1 clopidogrel 75 mg oral tablet 75 mg, 1, tablet, By Mouth, Daily, # 90 tablet, Refills 1, Tot. Refills 1, Maintenance, 09/11/24 12:33:00 PM EST, Route to Pharmacy Electronically, [facility] #[id number], Partial fill upon patient request if the prescription is for a schedule II opioid drug., 172.72, cm, 09/11/24 10:16:00 EST, Height, 73.8, kg, 09/11/24 10:16:00 EST, Dry Weight Start Date: 09/11/24 Stop Date: 03/10/25 Status: Ordered Quantity: 90.0 Unit: tablet Repeat number: 2 MiraLax oral powder for reconstitution = 17 Gm, By Mouth, Daily, Maintenance, 03/04/23 4:03:00 PM EDT, REC Powder, Partial fill upon patientrequest if the prescription is for a schedule II opioid drug. Start Date: 03/04/23 Status: Ordered Repeat number: 1 simvastatin 20 mg oral tablet 20 mg, 1, tablet, By Mouth, Daily at bedtime, Refills 0, Maintenance, 05/21/21 9:11:00 PM EDT, Partial fill upon patient request if the prescription is for a schedule II opioid drug. Start Date: 05/21/21 Status: Ordered Repeat number: 1 solifenacin 10 mg oral tablet 1 tablet = 10 mg, By Mouth, Daily at bedtime, 0 Refills, Maintenance, 05/21/21 9:38:00 PM EDT, Tablet, Partial fill upon patient request if the prescription is for a schedule II opioid drug. Start Date: 05/21/21 Status: Ordered Repeat number: 1 telmisartan 40 mg oral tablet 1 tablet = 40 mg, By Mouth, Daily at supper, # 30 tablet, 0 Refills, Maintenance, 03/04/23 3:52:00 PMEDT, Tablet, Partial fill upon patient request if the prescription is for a schedule II opioid drug. Start Date: 03/04/23 Status: Ordered Quantity: 30.0 Unit: tablet Repeat number: 1 Vitamin D3 5000 intl units oral capsule 1 capsule = 125 mcg, By Mouth, Daily, Maintenance, 03/04/23 4:02:00 PM EDT, Capsule, Partial fill upon patient request if the prescription is for a schedule II opioid drug. Start Date: 03/04/23 Status: Ordered Repeat number: 1 Xarelto 20 mg oral tablet 1 tablet = 20 mg, By Mouth, Daily at supper, # 30 tablet, 0 Refills, Maintenance, 05/21/21 9:11:00 PM EDT, Tablet, Partial fill upon patient request if the prescription is for a schedule II opioid drug. Start Date: 05/21/21 Status: Ordered Quantity: 30.0 Unit: tablet Repeat number: 1 Problem List Condition Confirmation Course Effective Dates Status Health St atus Informant Pre-syncope Confirmed Active Vital Signs Most recent to oldest [Reference Range]: 1 2 3 Height 172.72 cm (09/11/24 10:16 AM) Weight 73.8 kg (09/11/24 10:16 AM) Oxygen Saturation [94-100 %] 97 % (09/11/24 4:45 PM) 96 % (09/11/24 3:30 PM) 96 % (09/11/24 3:00 PM) Pulse Rate [55-90 bpm] 69 bpm (09/11/24 10:16 AM) Body Mass Index [18.5-24.99 kg/m2] 24.74 kg/m2 (09/11/24 10:16 AM) Blood Pressure [90-138/55-84 mm Hg] 150/94mm Hg *H* (09/11/24 4:45 PM) 150/82mm Hg *H* (09/11/24 3:30 PM) 155/87mm Hg *H* (09/11/24 3:00 PM) Respiratory Rate [16-30 br/min] 18 br/min (09/11/24 4:45 PM) 14 br/min *L* (09/11/24 3:30 PM) 18 br/min (09/11/24 3:00 PM) Temperature [96.8-100.4 DegF] 98.1 DegF (09/11/24 12:45 PM) 98 DegF (09/11/24 10:16 AM) Liters per Minute 6 L/min (09/11/24 1:00 PM) 6 L/min (09/11/24 12:45 PM) Mode of Delivery (Oxygen) Room air (09/11/24 4:45 PM) Room air (09/11/24 3:30 PM) Room air (09/11/24 3:00 PM) Blood pressure sites Arm, right (09/11/24 4:45 PM) Arm, right (09/11/24 3:30 PM) Arm, right (09/11/24 3:00 PM) Temperature Route Temporal (09/11/24 12:45 PM) Temporal (09/11/24 10:16 AM) Dry Weight 73.8 kg (09/11/24 10:16 AM) Weight Obtained Via Standing scale (09/11/24 10:16 AM) Dry Weight Obtained Via Standing scale (09/11/24 10:16 AM) Social History Social History Type Response Smoking Status Never (less than 100 in lifetime) entered on: 05/21/21 Sex Sex Representation Female (finding) Note * Event Display: Hemodynamic Procedure Report Authored Date: [id number] * Martha Sanchez RN: PERFORM Event Display: Discharge/Transfer Note Hospital Authored Date: [id number] Nursing Discharge Note Entered On: 09/11/2024 17:24 EST Performed On: 09/11/2024 17:24 EST by Martha Sanchez RN Nursing Discharge Note 2 Discharge Time : 09/11/2024 17:12 EST Discharge Level of Care at Discharge : Home/Fpc/Foster Care Patient Left Unit Via : Wheelchair Patient Accompanied Off Unit with : Responsible adult DC Instructions Provided & Signed by Pt : Yes Patient Understands D/C Instructions : Yes Verbalized Understanding of D/C Plan By : Patient Patient Instructions Discharge Signed : Yes Did Pt have Specialty Bed or Wound Vac : No Martha Sanchez RN - 09/11/2024 17:24 EST * Martha Sanchez RN: PERFORM Event Display: Patient Education/Instruction Authored Date: [id number] Surgery Adult Discharge Instructions [address] [address] Name: EDEN VAZQUEZ : 1940?? Visit: 09/11/2024 08:57?? Current Date: 09/11/2024 16:29 ?? Account: [id number]?? Surgery Discharge Instructions We would like to thank you for allowing us to assist you with your healthcare needs. The following includes patient education materials and information regarding your injury/illness. Our entire staffstrives to provide an excellent experience for our patients and their families. PLEASE ENSURE YOU FOLLOW-UP PER THE INSTRUCTIONS BELOW! ?? YOUR OPINION IS IMPORTANT TO US! Please complete the survey you may receive by mail or email. Your feedback will be used to make improvements to the healthcare experiences of our patients and their families. Surveys are administered by [employer] ?? If further treatment with your primary care physician or another doctor is recommended, it is important for you to keep the appointment. Call your primary care physician or return to the Emergency Department immediately if your condition worsens, fails to improve, or new symptoms develop. If you need to find a doctor, you can call [facility]Net Link for a referral at [phone] or toll free at [phone]) or log in to [email or web address].. ?? [facility], in keeping with [facility] guidance, no longer requires face masks for staff, patientsor visitors in most situations. Similiar to time spent indoors at other locations, there is the chance that you were exposed to repiratory viruses during your time with us (such as flu or COVID-19). If you develop symptoms concerning for a viral respiratory infection, please seek testing (and treatment if indicated) from your medical provider or home test kit. ?? You can view and manage your care through the patient portal or by using a health care hank of your choosing. [employer] is a website that allows you to securely view your medical information including your hospital discharge summary, office visit summaries, medications and follow-up visits. You can also request appointments, renew medications, and request access to your medical information using a health care hank of your choosing, or just ask a question. You are entitled to know the individuals who participated in your treatment. This information is available within your medical record and will be provided upon your request. You can enroll at [email or web address] or register d uring your next office visit. You have been discharged from [facility], Patient Care Unit: CARE??. If you have any questions regarding these instructions after you leave, please call us and we will be happy to assist you. [facility] Your Care Team Attending Physician Ellyn CHILDERS, Jolie Cannon?? Discharging Providers Ellyn CHILDERS, Jolie Cannon Reason for Admission AFIB WATCHMAN HV2 RAUL 9AM ARR Your Diagnosis Paroxysmal atrial fibrillation Primary Care Provider May Roque MD? Advance Directive Health Care Proxy on File No What to do next Instructions From Your Doctor ?? Orders? 09/11/24 15:58:00 EST?? Instructions from your Care Team STOP taking Xarelto - you are on PLAVIX (clopidogrel) for blood thinner now Scheduled Follow-Up Appointments Monday 10:30 AM EST ?? Where: [facility] [address] [place] [address]- Status: Pending You Need to Schedule the Following Appointments Follow Up with??Jolie Ragland Where: [facility], [address] [place] [address] [place] [address]- Business (1) Follow Up with??Dean Salazar Where: [address] [facility] [address] [facility] [place] [address]- Business (1) Follow Up with??May Roque MD When:??In 0 days Where: [place] [address] [place] [address]- Business (1) Discharge Medications EDEN VAZQUEZ :1940 Visit Date:09/11/2024 Medications: Please continue your medications until treatment is completed or stopped by your provider. You may resume your daily prescription medications. Discuss any questions related to medications with your provider. What How Much When Instructions Next Dose New Aspirin (aspirin 81 mg oral delayed release tablet) 1 tab(s) Oral Daily Duration: 90 Days Refills: 3 Pickup at [facility] #[id number] , 09/12 New Clopidogrel (clopidogrel 75 mg oral tablet) 1 tab(s) Oral Daily Duration: 90 Days Refills: 1 Pickup at [facility] #[id number] , 09/12 Unchanged amiODARONE (amiodarone 100 mg oral tablet) 1 tab(s) Oral Daily at supper Unchanged Cetirizine (cetirizine 10 mg oral tablet) 1 tab(s) Oral Daily as needed for allergy Unchanged Cholecalciferol (Vitamin D3 5000 intl units oral capsule) 1 capsule Oral Daily Unchanged Citalopram (citalopram 10 mg oral tablet) 1 tab(s) Oral Daily in the morning Unchanged Polyethylene Glycol 3350 (MiraLax oral powder for reconstitution) 17 gram Oral Daily STOP rivaroxaban (Xarelto 20 mg oral tablet) 1 tab(s) Oral Daily at supper Unchanged Simvastatin (simvastatin 20 mg oral tablet) 1 tab(s) Oral Daily at Bedtime Unchanged Solifenacin (solifenacin 10 mg oral tablet) 1 tab(s) Oral Daily at Bedtime Unchanged Telmisartan (telmisartan 40 mg oral tablet) 1 tab(s) Oral Daily at supper Pharmacy Information [facility] #[id number]: [address] [place], [place] [id number] [phone] Allergies (NKA means No Known Allergies) Adhesive Bandage Education Materials Below is the list of Educational Leaflet Providered with your Discharge Instructions. [employer] Patient Education - Surgery Voiding Instructions?? [employer] Patient Education - M-Groin I Discharge Instructions?? [employer] Patient Education - Left Atrial Appendage Closure?? [employer] Patient Education - Anesthesia: General Anesthesia?? Valuables and Belongings I fully understand and agree that [facility] accepts no responsibility for all my personal property including clothing, toilet articles, radios, jewelry, dentures, hearing aids, rings, money, or any other property that is in my possession or is brought to me after admission. I understand certain valuables may be placed in a hospital safe for a short period of time. I understand that the hospital is not liable for loss or damage due to accident, fire, or other natural occurrence while said property is in the safe. I accept full responsibility for any personal property that I keep with me, and will not hold the hospital responsible in case of loss or disappearance. I acknowledge that i have been encouraged to send valuables and belongings home. ?? Review of Valuable and Belonging List: With patient Date for Pt to Sign Valuables/Belongings: 09/11/24 10:43:00 ?? Valuables & Belongings ?? Clothes Electronic devices Jewelry Monetary Items Personal devices Miscellaneous Medications (Valuables) Valuables at Bedside Jacket, Pants, Shirt, Shoes, Undergarments Cell phone ?? Purse Glasses, Hearing aid, left, Hearing aid, right ? Valuables Sent Home ? Valuables Sent to Security ? Valuables Sent to Locker ? Other Discharge Information ? Pulmonary Rehab Status?? Pulmonary Rehab Discharge Status?? Respiratory Rate:??14 br/min??Low ? Common Emergency Awareness Tips IS IT A STROKE? Act FAST and Check for these signs: FACE Does the face look uneven? ARM Does one arm drift down? SPEECH Does their speech sound strange? TIME Call at any sign of stroke ?? Heart Attack Signs Chest discomfort: Most heart attacks involve discomfort in the center of the chest and lasts more than a few minutes, or goes away and comes back. It can feel like uncomfortable pressure, squeezing, fullness or pain. Discomfort in upper body: Symptoms can include pain or discomfort in one or both arms, back, neck, jaw or stomach. Shortness of breath: With or without discomfort. Other signs: Breaking out in a cold sweat, nausea, or lightheaded. Remember, MINUTES DO MATTER. If you experience any of these heart attack warning signs, call to get immediate medical attention! ?? Smoking can increase your chances of developing chronic health problems and can cause harmful effects to other family members in your house. If you smoke, you are strongly encouraged to quit. Please call [facility] Link at [phone] or [phone]) or log in to [email or web address] for referrals to smoking cessation programs. ?? The National Suicide Prevention Hotline is available 27/03 if you or someone you know needs to find a reason to keep living. By calling 9-280-485-[employer] (3502) you'll be connected to a skilled, trained counselor at a crisis center in your area. SURGERY DISCHARGE INSTRUCTIONS SIGNATURE PAGE EDEN VAZQUEZ Location:[facility] Registration Date and Time:09/11/2024 08:57 EST Primary Care Physician: May Roque MD, Attending Physician: Ellyn CHILDERS, Jolie Cannon, I EDEN VAZQUEZ, have received the above patient education materials/instructions and have verbalized understanding. If ambulance or transport services are being used I further acknowledge being givena choice of service. ?? If you need to contact me, please call me at this number: . Patient/Roads Superintendent Name:EDEN TAYLOR Patient/Roads Superintendent Signature: Relationship to Patient: Witness Name/Signature: Date: * Martha Sanchez RN: PERFORM, SIGN, VERIFY Event Display: Patient Education Handout Authored Date: [id number] * Martha Sanchez RN: PERFORM Event Display: Patient Education Leaflets Authored Date: [id number] Surgery Voiding Instructions ?? 305 Home Voiding Instructions ?? You should pass urine 6-8 hours after you are discharged from the [facility]. The amount should be about one cup of urine with each voiding. Be aware that you should feel like you are emptying your bladder completely. If you are passing very small amounts of urine frequently it could be over-flow and you may not be emptying your bladder. Things to try to encourage urination: Drink warm coffee or tea ??? unless your physician told you not to. Blow bubble through your straw into a small glass of water. Trickle lukewarm water onto your private area. Walk around as much as able. Let the faucet run slowly. Put your hand in warm water. Try to relax. If you have any concerns about urination, in the above time frame after your discharge, you should call your Doctor. ? * Martha Sanchez RN: PERFORM Event Display: Patient Education Leaflets Authored Date: [id number] M-Groin I Discharge Instructions ?? 179 Groin Discharge Instructions No heavy lifting over 10 pounds (for example: gallon of milk) 1 week following the procedure; gradually increase normal activity over the next 5 days. Avoid straining/pushing when moving bowels You may feel like resting more after your procedure. Slowly start to do more each day. Rest when you feel it is needed. Make sure to look at your procedure site every day until it is completely healed. You may see bruising at the puncture site and that is common after the procedure. You may shower the day after your procedure. Remove the band aid before showering. Wash the area gently with soap and water. Leave open to air. Do not take tub baths, hot tubs, soaking of the puncture site or swimming for 1 week. Do not put any creams, powders or lotions on your puncture site You may resume sexual activity the day after your procedure; avoid bending the hip on ?? the side of the groin puncture excessively and any strenuous positions for 1 week. Call your doctor if your procedure site develops any of the following: ??? New onset severe pain ??? New onset lump or swelling ??? Bleeding that does not stop with lightpressure ? * Martha Sanchez RN: PERFORM Event Display: Patient Education Leaflets Authored Date: [id number] Left Atrial Appendage Closure ?? [address] Left Atrial Appendage Closure Left atrial appendage closure (LAAC) is a heart procedure. It seals off the left atrial appendage (MEENA) of the heart. The MEENA is an outpouching of the left atrium, one of the top chambers of the heart. In people who have atrial fibrillation (a type of irregular heartbeat), blood clots tend to form in the MEENA. A clot can then travel from the MEENA to the brain. This causes a stroke. LAAC may be done with a special implant. This implant is made of a metal alloy. It's put into the MEENA. Over time, tissue grows over the implant. It seals off the MEENA. By doing so, the device stops blood clots from leaving the MEENA and moving to the brain. It can lower the risk for stroke if you haveatrial fibrillation (AFib) not caused by heart valve disease. Why LAAC is done Many people with AFib take blood thinners (anticoagulants) to prevent blood clots from forming. Butsome people may not be able take these medicines. They may have a higher risk of bleeding when on them. Or they may not be able to deal with the side effects of the medicine. In these cases, LAAC with the implant device may be done. It can lower a person???s risk for stroke without taking blood thinners. ?? How LAAC is done Before you have LAAC with the implant device, your healthcare provider may tell you to stop taking certain medicines. Tell your provider about all the medicines and herbal supplements you take. Your healthcare provider may also tell you to not eat or drink for some time beforehand. Make sure your provider knows about any allergies or other health problems you may have. LAAC is usually done in a catheterization lab in a hospital. It typically takes about 1 hour. During LAAC: ??? You will lie down on your back on a table. ??? You will be given medicine through an IV (intravenous) line to help you relax and to block pain during the procedure. You may be given general anesthesia, so you sleep during the procedure. A heart ultrasound probe is often placed in the esophagus so the heart can be seen in real time. ??? A healthcare provider will make a small cut in a vein in your groin. They will place an access sheath in the vein so that the closure device can be delivered to the heart. ??? The provider will put a longer sheath into the right atrium of the heart. The provider uses a a small needle or wire to puncture the thin membrane between the right and left atrium. This is called a transeptal puncture. This lets the provider put the closure device into theLAA. ??? Once at the MEENA, the delivery sheath will be placed into the MEENA. Contrast is often used to take pictures of the MEENA. After the provider takes measurements to decide on the size of the closure device. they put the closure device into the MEENA. ??? The provider will take several pictures with ultrasound and X-ray to make sure the device is well- seated and the MEENA is closed. If the device isn't in the best place, the provider will move it until it is. ??? Once the device is in position and MEENA is closed, the provider will release device and remove the delivery sheath from your body. ???The provider will often close the groin access site with internal stitches and manual pressure. ?? What happens after LAAC You will be taken to a recovery room. You will be watched to make sure the procedure went well. Youmay spend the night in the hospital. Or you may go home the same day. When you return home, follow all directions from your healthcare provider. They may advise you to limit your activities for some time. You will have to take a blood thinner for about 6 weeks. Take your medicine as directed to prevent blood clots and stroke. During this time, tissue will grow over the implant device, closing off the MEENA. Keep all follow-up visits with your healthcare provider. You will need periodic imaging tests to check that the MEENA is closed off. Your healthcare provider may put you on a different blood thinner for about 6 months. After that time, you will take aspirin every day. Your medicine plan may differ. Follow your healthcare provider's instructions. ?? Risks of LAAC Like any surgical procedure, LAAC with the implant device has risks. Talk with your healthcare provider about them. They may include: ??? Allergic reaction to the anesthesia, the special dye, or the device ??? Bleeding from the groin ??? Bleeding from the heart ??? Blood clots ??? Failure or dislocation of the device ??? Heart or blood vessel damage ??? Infection ??? Stroke ??? Kidney damage ?? Last Reviewed Date: 2021 ?? [id number] [employer]. All rights reserved. This information is not intended as a substitute for professional medical care. Always follow your healthcare professional's instructions. ?? EKG study * Event Display: ECG 12-Lead Authored Date: Please click on pdf link to open report * Event Display: ECG 12-Lead Authored Date: Ventricular Rate: 82 BPM Atrial Rate: 105 BPM QRS Duration: 102 ms Q-T Interval: 450 ms QTC Calculation(Bazett): 525 ms R Pool: -34 degrees T Pool: -19 degrees Critical Test Result: Long QTc Atrial fibrillation Left axis deviation Nonspecific ST and T wave abnormality Abnormal ECG When compared with ECG of 04-Mar-2023 12:34, ST now depressed in Inferior leads Nonspecific T wave abnormality now evident in Inferior leads Confirmed by DIPESH VENTURA MD ([id number]) on 09/11/2024 10:41:07 AM [place]: DIPESH VENTURA MD US Heart Transesophageal * Event Display: Trans-esophageal Echocardiogram Authored Date: Transesophageal Echocardiography Report (PASCUAL) Patient Demographics Patient Name EDEN VAZQUEZ Date of Study 09/11/2024 Corporate Gender Female Facility Race .[id number] Ethnicity Date of 1940 Height: 68.11 inches Age 84 year(s) Weight: 163.14 pounds Accession Number [id number] BSA: 1.88 m2 Room Number [id number] BMI: 24.73 kg/m2 Referring Chon SANDOVAL Interpreting Serg Lisa Physician Physician Food Technologist Joyce Loredo Indications Atrial fibrillation. Additional Indications:Intra-WM Clinical History #27mm Watchman Device (09/11/24) Study Data Type of Study PASCUAL procedure:PASCUAL Image Acquisition and Interpretation. 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 Allergies - Adhesive tape. 2D Measurements AO Root Dimension: 3.15 cm Ascending Aorta:3.2 cm Doppler Measurements TR Velocity:207 cm/s TR Gradient:17.14 mmHg Cardiac Anatomy Left Ventricle/Interventricular Septum Overall left ventricular systolic function appears normal. LVEF visually estimated at 60-65%. No significant LV regional wall motion abnormalities. Left Atrium/Interatrial Septum Transeptal access was visualized. Sheath advanced into the left atrium, pigtail catheter passed through sheath into left atrial appendage, and sheath advanced into left atrial appendage. Watchman FLX Pro device was deployed. Device met pre-determined PASS criteria (see procedure note in CIS). There was no significant paradevice leak. 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 27 mm Watchman FLX Pro measurements (angle: width cm)- 0: 1.83 45: 1.80 90: 1.75 135: 1.86 Aortic Valve The aortic valve is trileaflet. There are very small filamentous echodensities on the aortic side of the aortic valve consistent with Lambl's excrescences. No significant aortic stenosis or regurgitation. Mitral Valve The mitral valve appears mildly thickened. There is trace mitral regurgitation. Aorta The ascending aorta and aortic root are normal in size. There is moderate to severe plaque in the descending aorta. Right Ventricle The right ventricle is normal in size and systolic function. Right Atrium There is no mass or thrombus in the right atrium. The right atrium is dilated. Pulmonic Valve The pulmonic valve is grossly normal. The pulmonic valve is functionally normal. Tricuspid Valve The tricuspid annulus is dilated. There is moderate tricuspid regurgitation. Pumonary Artery The pulmonary artery systolic pressure estimation is 17 mmHg plus right atrial pressure. Venous Structures There is normal pulmonary venous flow. Pericardium/Extracardiac Effusion visualized in the transverse sinus adjacent to the left atrial appendage, not significantly changed versus preprocedure. No significant pericardial effusion elsewhere. Summary Successful implantation of 27 mm Watchman FLX Pro device. Effusion visualized in the transverse sinus adjacent to the left atrial appendage, not significantly changed versus preprocedure. No significant pericardial effusion elsewhere. Overall left ventricular systolic function appears normal. LVEF visually estimated at 60-65%. The right ventricle is normal in size and systolic function. There is moderate to severe plaque in the descending aorta. No hemodynamically significant (worse than mild) valve dysfunction. The pulmonary artery systolic pressure estimation is 17 mmHg plus right atrial pressure. Comparison Comparison is made to the study of September 11, 2024. Interval LAAO. Signature * Event Display: Trans-esophageal Echocardiogram Authored Date: [id number] * Event Display: Trans-esophageal Echocardiogram Authored Date: Transesophageal Echocardiography Report (PASCUAL) Patient Demographics Patient Name EDEN VAZQUEZ Date of Study 09/11/2024 Corporate Gender Female Facility Race .[id number] Ethnicity Date of 1940 Height: 68 inches Age 84 year(s) Weight: 163.13 pounds Accession Number [id number] BSA: 1.87 m2 Room Number [id number] BMI: 24.8 kg/m2 Referring Chon SANDOVAL Interpreting Serg Lisa, Physician Physician Food Technologist Joyce Loredo Indications Atrial fibrillation. Additional Indications:Pre-WM Clinical History #27mm Watchman Device (09/11/24) Study Data Type of Study PASCUAL procedure:PASCUAL with Doppler and Colorflow. 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 Allergies - Adhesive tape. Cardiac Anatomy Left Atrium/Interatrial Septum There is no thrombus in the left atrium or left atrial appendage. The left atrial appendage is best described as windsock morphology. Left atrial appendage measurements (angle: ostium, depth cm)- 0: 1.7, 2.3 45: 1.9, 2.3 90: 1.8, 1.9 135: 1.9, 1.7 Pericardium/Extracardiac There is a pericardial effusion in the transverse sinus adjacent to the left atrial appendage. Summary Pre-LAAO Study. Left atrial appendage measurements and morphology as above. There is a pericardial effusion in the transverse sinus adjacent to the left atrial appendage. Comparison No prior study available for comparison. Signature * Event Display: Trans-esophageal Echocardiogram Authored Date: [id number] Patient Care team information Care Team Personnel Name: Anastasia Gerber RN Position: S RN Member Role: Primary Care Nurse Name: May Roque MD Position: Reference Physician Member Role: PCP Address: [address] [place], [place] [address] [address] Telecom: Name: Indu Perez RN Position: S RN Member Role: Primary Care Nurse Care Team Related Persons Name: LUIS FERNANDO MCGUIRE Insurance Providers Guarantor name: EDEN VAZQUEZ Health Plan Information #: 1 Payer: MEDICARE A INPT 25 Member Number: [id number] Policy Number: NA Group Number: NA Health Plan Information #: 2 Payer: MEDICARE PART B OUTPT Member Number: [id number] Policy Number: NA Group Number: NA Health Plan Information #: 3 Payer: FOR LIFE MCR A ONLY Member Number: [id number] Policy Number: NA Group Number: NA
--- OUTSIDE RECORDS SUMMARY | 2024-10-03 19:06 | XMS_ITS | Continuity of Care Document ---
Author Name [facility] Organization [facility] Care Team Providers Care Software Test Technician Name Role Phone [facility] Unavailable Unavailable Problems Combined list of problems from Department of Defense and Veterans Affairs facilities. It does not include entries that were removed or entered in error. Problem Status Onset Date Problem Type Date of Resolution Comments Source Need For Vaccination Against Influenza Inactive Condition [facility] Medications Combined list of outpatient medications from Department of Defense and Veterans Affairs facilities.Medications provided include 1) outpatient medications from the last 15 months, and 2) patient-reported medications. Medication Details Route Status Patient Instructions Prescription Expires Prescription Number Last Dispense Date Ordering Provider Order Date Order Qty Source AMLODIPINE BESYLATE (AMLODIPINE BESYLATE), 5 MG, TABLET, ORAL, EXELAN PHARMACE, 1000 ea. BOTTLE Active [id number] 4 2023 90 Pharmac y Data Transac tion Service Facilit y AMLODIPINE BESYLATE (AMLODIPINE BESYLATE), 5 MG, TABLET, ORAL, EXELAN PHARMACE, 1000 ea. BOTTLE Active [id number] 4 2023 90 Pharmac y Data Transac tion Service Facilit y CEPHALEXIN (CEPHALEXIN MONOHYDRATE ), 500MG, CAPSULE, ORAL, TEVA [place], 500 ea. BOTTLE Active [id number] 4 2023 21 Pharmac y Data Transac tion Service Facilit y CEPHALEXIN (CEPHALEXIN MONOHYDRATE ), 500MG, CAPSULE, ORAL, TEVA [place], 500 ea. BOTTLE Cancele d [id number] : 2022 0 Pharmac y Data Transac tion Service Facilit y CETIRIZINE HCL (cetirizine HCl), 10 MG, TABLET, ORAL, MAJOR PHARMACEU, 300 ea. BOTTLE Active [id number] 4 2023 90 Pharmac y Data Transac tion Service Facilit y CETIRIZINE HCL (cetirizine HCl), 10 MG, TABLET, ORAL, MAJOR PHARMACEU, 300 ea. BOTTLE Active [id number] 4 2023 90 Pharmac y Data Transac tion Service Facilit y CITALOPRAM HBR (CITALOPRAM HYDROBROMID E), 10MG, TABLET, ORAL, MYLAN, 500 ea. BOTTLE Miguel Ángel d [id number] : 2023 0 Pharmac y Data Transac tion Service Facilit y CITALOPRAM HBR (CITALOPRAM HYDROBROMID E), 10MG, TABLET, ORAL, MYLAN, 500 ea. BOTTLE Active [id number] 4 2023 90 Pharmac y Data Transac tion Service Facilit y CITALOPRAM HBR (CITALOPRAM HYDROBROMID E), 10MG, TABLET, ORAL, TORRENT PHARMAC, 500 ea. BOTTLE Active [id number] 4 2023 90 Pharmac y Data Transac tion Service Facilit y GABAPENTIN (gabapentin ), 300 MG, CAPSULE, ORAL, CAPS [employer] 1000 ea. BOTTLE Active [id number] 4 2023 90 Pharmac y Data Transac tion Service Facilit y SOLIFENACIN SUCCINATE (solifenaci n succinate), 10 MG, TABLET, ORAL, APOTEX CLAY, 30 ea. BOTTLE Active [id number] 4 2023 20 Pharmac y Data Transac tion Service Facilit y SOLIFENACIN SUCCINATE (solifenaci n succinate), 10 MG, TABLET, ORAL, AVKARE, 90 ea. BOTTLE Active [id number] 4 2023 90 Pharmac y Data Transac tion Service Facilit y XARELTO (RIVAROXABA N), 20 MG, TABLET, ORAL, CINTHIA PHARM., 90 ea. BOTTLE Active [id number] 4 2023 90 Pharmac y Data Transac tion Service Facilit y Allergies, Adverse Reactions, Alerts Combined list of allergies from Department of Defense and Veterans Affairs facilities. It does not include entries that were removed or entered in error. Substance Category Reaction Severity Reaction type Status Date Reported Comments Source CODEINE Drug allergy (disorder) Unknown active 06/17/2005 [facility] Immunizations Combined list of available immunizations from the Department of Defense and Veterans Affairs facilities. Immunization Series Date Given Administered By Site Reaction Lot Number CVX Code Drug Public Health Analyst Status Comments Source COVID-19, mRNA, LNP-S, PF, 30 mcg/0.3 mL dose 2020 WEST[place] [employer] (PFR) Not Given COVID-19, mRNA, LNP-S, PF, 30 mcg/0.3 mL dose [facility] Influenza vaccine, quadrivalent, adjuvanted 2020 BOGDASARIAN, () Not Given Influenza vaccine, quadrival ent, adjuvante d DoD zoster vaccine, live 1 2014 SIMBA SANTAMARIA [id number] Merck (MSD) complet ed zoster vaccine, live DoD influenza virus vaccine, split virus (incl. purified surface antigen)-reti red CODE 1 2007 Unknown, Provider [id number] [employer] (SKB) complet ed influenza virus vaccine, split virus (incl. purified surface antigen)- retired CODE DoD Encounters Combined list of: 1) Encounters from Department of Veterans Affairs facilities going back up to thelast 18 months. 2) Encounters from the Department of Defense facilities going back up to 280 months. Location Location Details Encounter Type Encounter Number Reason For Visit Attending Provider ADM Date DC Date Status Disposition Source [place], [place](Preven tive [place]) OUTPATIENT [id number] Immuniz ation. MAY MARCANO 07/02 Released w/o Limitations [place](Prev entive Medicin e) Procedures Combined list of: 1) Procedures from Department of Veterans Affairs facilities going back up to thelast 18 months, not all VA non-surgical procedures are included; 2) All procedures from the Department of Defense facilities. Procedure Procedure Type Code Date Perfomer Comments [facility] e INFLUENZA VIRUS VACCINE, TRIVALENT (IIV3), SPLIT VIRUS, 0.5 ML DOSAGE, FOR INTRAMUSCULAR USE 07/02/2008 [facility] INFLUENZA VIRUS VACCINE, TRIVALENT (IIV3), SPLIT VIRUS, 0.5 ML DOSAGE, FOR INTRAMUSCULAR USE 06/17/2005 [facility] INFLUENZA VIRUS VACCINE, TRIVALENT (IIV3), SPLIT VIRUS, 0.5 ML DOSAGE, FOR INTRAMUSCULAR USE 08/03/2004 [facility] Influenza Split Virus Vaccine 0.5mL Dosage Intramuscular 07/02/2008 [place]ON SOTO [facility] Immunization Administration By Injection, One Vaccine Immunization Administration By Injection, One Vaccine [id number] 07/02/2008 [place] S[place] [facility] Social History Combined list of available smoking, tobacco, and other social history from Department of Defense and Veterans Affairs facilities. Social History Type Response Date Comment [facility] e This section is an empty social history section. DoD
== END 2024-10-03 16:21 | disposition home or self-care (01) ==
PROVIDERS: Visit Provider Psychiatry & Neurology Neurology
DX: G64 Other disorders of peripheral nervous system (principal); R26.9 Unspecified abnormalities of gait and mobility; R29.6 Repeated falls; G62.9 Polyneuropathy, unspecified; M20.41 Other hammer toe(s) (acquired), right foot; M20.42 Other hammer toe(s) (acquired), left foot; R55 Syncope and collapse
CPT/HCPCS: 99214; G2211

== ENCOUNTER → 2024-10-03 15:18 | Outpatient (BNVA) | payer MEDICARE, OTHER, SELFPAY | PROVIDERS: Visit Provider Psychiatry & Neurology Neurology | DX: R26.9 Unspecified abnormalities of gait and mobility (principal); G64 Other disorders of peripheral nervous system; R29.6 Repeated falls; G62.9 Polyneuropathy, unspecified; M20.41 Other hammer toe(s) (acquired), right foot; M20.42 Other hammer toe(s) (acquired), left foot; R55 Syncope and collapse; Z91.81 History of falling | CPT/HCPCS: 99212 ==

== ENCOUNTER 2024-10-24 00:10 | Observation (INO) | payer MEDICARE, OTHER, SELFPAY ==
[2024-10-24] VITALS (12 sets, daily range): BP systolic 116–210; BP diastolic 76–120; PULSE 59–110; RESP 16–20; TEMP 36.2–36.8; O2SAT 96–99; BMI 29.5; BMI 27.8
--- NOTE | 2024-10-24 | ECG_ITS ---
Test Reason : HTN Blood Pressure : */* mmHG Vent. Rate : 65 BPM Atrial Rate : 65 BPM P-R Int : 194 ms QRS Dur : 98 ms QT Int : 452 ms P-R-T Axes : 105 -23 62 degrees QTcB Int : 470 ms Normal sinus rhythm Normal ECG When compared with ECG of 29-Mar-2024 13:13, Sinus rhythm has replaced Electronic atrial pacemaker Referred By: Generic ED Physician Electronically Signed By: TRU WHITNEY
--- NOTE | ~2024-10-24 | XR_ITS ---
EXAMINATION: XR CHEST CLINICAL INFORMATION: weakness COMPARISON: July 20, 2018. TECHNIQUE: Frontal view of the chest was obtained. FINDINGS: No consolidation pleural effusion or pneumothorax. 2. Intact endotracheal leads in the right heart chambers. Cardiomediastinal silhouette size is normal. There is a metallic stenting overlapping the pulmonary artery outflow/auricular appendage. Calcified plaque thoracic aorta. There is a metallic reservoir for a pacemaker in the left lateral upper chest axillary region. Osteopenia versus osteoporosis. Multilevel thoracic spondylosis. Degenerative changes in both shoulders. XR/XR chest 1V IMPRESSION: No acute airspace disease. No pulmonary edema. Electronically signed by: Rafael Garcia MD 10/24/2024 01:13 PM EST RP
--- NOTE | 2024-10-24 00:25 | PC.NURSE ---
MD Kapoor made aware of high BPs on arrival to ED.
[2024-10-24 00:45] LABS: MANUAL DIFF FLAG NO
[2024-10-24 00:46] LABS: Basophils Percent Auto 0.7 % (0-2); Eosinophils Absolute Auto 0.2 X10*3/uL (0.0-0.4); Eosinophils Percent Auto 2.8 % (0-4); Hemoglobin 12.6 g/dl (12.0-16.0); Imm Gran Abs Auto 0.02 X10*3/uL (0.00-0.03); Imm Gran Pct Auto 0.4 % (0.0-0.4); Lymphocytes Absolute Auto 0.9 X10*3/uL (1.2-4.9); Lymphocytes Percent Auto 16.4 % (20-40); Mean Corpuscular HGB Conc 34.1 g/dl (31.0-35.0); Mean Corpuscular Hemoglobin 30.5 pg (27.0-33.0); Mean Corpuscular Volume 89.6 fL (80.0-98.0); Mean Platelet Volume 10.4 fL (9.4-12.3); Monocytes Absolute Auto 0.4 X10*3/uL (0.1-1.2); Monocytes Percent Auto 7.6 % (2-11); Neutrophils Absolute Auto 3.9 x10*3/uL (2.0-8.3); Neutrophils Percent Auto 72.1 % (45-73); Platelet Count 222 X10*3/uL (160-400); Red Blood Count 4.13 X10*6/uL (4.20-5.50); Red Cell Distribution Width 12.8 % (11.0-16.0); White Blood Count 5.4 X10*3/uL (4.8-10.8)
[2024-10-24 01:06] LABS: Alanine Aminotransferase 15 U/L (0-31); Albumin Level 4.2 g/dL (3.5-5.0); Anion Gap 14 (12-20); Aspartate Amino Transferase 26 U/L (5-31); Bilirubin Total 0.5 mg/dL (0.0-1.0); Blood Urea Nitrogen 15 mg/dL (9-16); Calcium 9.2 mg/dL (8.4-10.2); Carbon Dioxide 27 mmol/L (22-29); Chloride 94 mmol/L (96-108); Creatinine Clr Calc Pharmacy 59.8; Estimated Glomerular Filt Rate > 60; Glucose Random 97 mg/dL (60-115); Lipase 13 U/L (8-78); Magnesium 1.9 mg/dL (1.6-2.6); Potassium 4.6 mmol/L (3.3-5.1); Sodium 130 mmol/L (135-145); Total Protein 7.1 g/dL (6.5-8.0); Troponin-I High Sensitivity 6.4 ng/L (<3.5-17.0)
[2024-10-24 01:47] LABS: Alkaline Phosphatase 75 U/L (39-117)
--- NOTE | 2024-10-24 02:55 | MHC.EDTECH ---
pt ambulated with minimal assistance by me to bathroom. X2 voids since arrival
--- OUTSIDE RECORDS SUMMARY | 2024-10-24 04:05 | XMS_ITS | Clinical Summary ---
Author Organization [facility] Address [address] [place] [address] Care Team Providers Care Wardrobe Attendant Name Role Phone Flex Roque MD Primary Care Provider Allergies No known active allergies Medications Medication [...] age to complete this topic Care Teams Wardrobe Attendant Relationship Specialty Start Date End Date Flex Roque MD [address] [place] [address] PCP - General Pediatric, General 05/13/20
--- OUTSIDE RECORDS SUMMARY | 2024-10-24 04:05 | XMS_ITS | Continuity of Care Document ---
Author Organization [facility] val[facility] Address [address] [place] [address] [place] [address]- Care Team Providers Care Popcorn Machine Operator Name Role Phone May Roque MD Primary Care Physician [phone] [id number] Date(s): 09/10/24 - 10/10/24 [facility] [address] [place] [address] Drive [address] [place] [address]- Encounter Type: Triage Allergies, Adverse Reactions, Alerts Substance Criticality Severity [...] 12:32:00 PM EST, Route to Pharmacy Electronically, [id number], Partial fill upon patient request if the [...] 12:33:00 PM EST, Route to Pharmacy Electronically, [facility][id number], Partial fill upon patient request if the [...] Health St [facility] Informant Pre-syncope Confirmed Active Social History Social History Type Response Smoking Status Never (less than 100 in lifetime) entered on: 05/21/21 Sex Sex Representation Female (finding) Patient Care team information Care Team Personnel Name: Anastasia Gerber RN Position: S RN Member Role: Primary Care Nurse Name: May Roque MD Position: Reference Physician Member Role: PCP Address: [address] [place], [place] [address] [address] Telecom: Name: Indu Perez RN Position: S RN Member Role: Primary Care Nurse Care Team Related Persons Name: LUIS FERNANDO MCGUIRE Insurance Providers Guarantor name: EDEN VAZQUEZ Health Plan Information #: 1 Payer: MEDICARE A INPT 25 Member Number: NA Policy Number: NA Group Number: NA Health Plan Information #: 2 Payer: FOR LIFE MCR A ONLY Member Number: NA Policy Number: NA Group Number: NA
--- OUTSIDE RECORDS SUMMARY | 2024-10-24 04:05 | XMS_ITS | Data Portability ---
Author Organization [place] - .[employer] [facility], [employer] [place] Address [address] [place] [id number] Assessment No assessment recorded. Plan of Treatment Reminders Order Date Submit Date Provider Last Modified By Organization Details Last Modified Time Details Appointments None recorded. Lab None recorded. Referral None recorded. Procedures None recorded. Surgeries None recorded. Imaging None recorded. Medication Orders erythromy dominick 5 mg/gram (0.5 %) eye ointment 2022 023 [email or web address] [id number], [address], [place], [address], 07:16:14 Patient TargetsNo targets recorded. Patient Instructions Encounter Date Encounter Id Patient Instructions Last Modified By Organization Details Last Modified Time 01/04/2023 [id number] A healthy lifestyle: care instructions jessica Not available 01/06/2023 07:16:14 Thank you for visiting [facility]. There are two ways to view your lab results: ? 1. ? ? ? The [employer]ie mohinder is available to all patients 18 and older in the Mohinder Store and [employer]. First-time mohinder users will need to create an account; please note you? l l need to select a login and password for the mohinder versus just using your patient portal login credentials. Your lab results will be posted to the Woopie mohinder as soon as they? r e available. ? 2. ? ? ? Via email , as soon as lab results are available. If you don? t receive an email within the estimated time frame, give our Aftercare team a call at [phone]. warm compresses every 1--2 hours while awake Stye Your Care Instructions: Styes and chalazia (say zzs-KIS-luc- ) are both conditions that can cause [...] Address Organization Details Recorded Time Hypertensive disorder 52165155 Active 2022 JOSEPH Cassidy - .[facility] 10:45:45 Seizure 57195996 Active 2022 JOSEPH Cassidy - .[facility] 10:46:06 Chronic urticaria 56386427 Active 2022 JOSEPH Cassidy - .[facility] 10:46:31 Problem Notes None recorded. Medical Equipment [...] 143 mm[Hg] 87 mm[Hg] Chhaya RUIZ - .[facility] 3 10:13:32 Social History Question [...] SNOMED-CT Code Diagnosis ICD10 Code Diagnosis Note [id number] FREDRICK RIVERA [facility] [address] [place] [address] 01/04/2023 09:48:43 01/04/2023 10:49:05 Hordeolum externum of upper eyelid of right eye [id number] 21792 H00.011 Health Concerns Section Related Observation LastModified by Organization Detai ls LastModified Time None Recorded Concern Status LastModified by Organization Details LastModified Time None Recorded Advance Directives Directive None Recorded Payers Encounter Date Sequence Insurance Name Policy Number Policy Vieyra Covered Member ID Vieyra Member ID Guarantor Name 01/04/2023 2 FOR LIFE () Kaci Huff [id number] Kaci Hernandez 01/04/2023 1 [place] Kaci Huff [id number] Kaci [facility] Notes Date Note Type Note Provider Name [...] warm compresses which helped. JOSEPH Antonio - .[facility] 01/04/2023 10:54:43 OBGyn Episode No OBEpisode recorded.
--- NOTE | 2024-10-24 04:44 | PC.NURSE ---
pt continues to rest comfortably on stretcher, on monitor and storage bin tender, respirations even and unlabored. repeat trop ordered and being drawn by tech. waiting to be seen by ED provider.
[2024-10-24 05:04] LABS: Troponin-I High Sensitivity 40.6 ng/L (<3.5-17.0)
--- NOTE | 2024-10-24 07:39 | ED_ITS ---
HPI - General Adult General Chief complaint: General Medical Stated complaint: HYPERTENSION Time Seen by Provider: 10/24/24 06:31 Source: patient, EMS, RN notes reviewed and old records reviewed Mode of arrival: EMS History of Present Illness ED Provider: Lian Hinton PA-C HPI narrative: 84-year-old female with a past medical history peripheral neuropathy, HLD, HTN, AFib on Plavix and aspirin, watchman device, presenting to the ED via EMS complaining of elevated blood pressures at home 200's/100's and generalized fatigue/weakness and lethargy. Admits to compliance of her BP medication. Denies headache, lightheadedness/dizziness, vision change or loss, CP/SOB, cough, recent illness, abdominal pain, nausea/vomiting Related Data Home Medications ?Medication ?Instructions ?Recorded ?Confirmed amiodarone 100 mg tablet 100 mg PO BEDTIME 09/02/23 09/02/23 cholecalciferol (vitamin D3) 125 125 mcg PO DAILY 09/02/23 09/02/23 mcg (5,000 unit) tablet (Vitamin D3) citalopram 10 mg tablet 10 mg PO DAILY 09/02/23 09/02/23 polyethylene glycol 3350 17 gram 17 g PO DAILY 09/02/23 09/02/23 oral powder packet (Miralax) simvastatin 20 mg tablet 20 mg PO DAILY@1800 09/02/23 09/02/23 solifenacin 10 mg tablet 10 mg PO BEDTIME 09/02/23 09/02/23 aspirin 81 mg tablet,delayed 81 mg PO DAILY 10/03/24 release cetirizine 10 mg tablet 10 mg PO DAILY PRN 10/03/24 clopidogrel 75 mg tablet 75 mg PO DAILY 10/03/24 lactobacillus combination no.8 3 cell PO BID 10/03/24 billion cell capsule sodium chloride 0.65 % nasal spray 1 spray intranasal DAILY PRN 10/03/24 aerosol Previous Rx's ?Medication ?Instructions ?Recorded alpha lipoic acid 200 mg tablet 200 mg PO DAILY Gait balance #30 10/03/24 tabs Allergies Allergy/AdvReac Type Severity Reaction Status Date / Time No Known Allergies Allergy Verified 10/24/24 00:23 Review of Systems 2 Review of Systems: Yes all other systems are reviewed and are negative Constitutional: Constitutional: Reports as per HPI Neurologic: Denies Abnormal speech present PMFSH Past Medical History Attestation statement: The following information was validated with the patient. 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 Neuropathy Falls frequently Anxious mood Tremors of nervous system Arthritis Hyperlipidemia HTN (hypertension) Atrial fibrillation FH: total knee replacement Pacemaker Surgical History History of hip replacement History of carpal tunnel surgery Family History Family History Mother Dementia Social History Social History Household Members: Children Household Members Other:: DAUGHTER ALEJANDRA Alcohol intake: current Alcohol intake frequency: a few times a month Comment: OCCASIONAL Patient Tobacco Use Status: Never used Tobacco Smoked in Last 30 Days: No Use of substances other than those prescribed or required for medical reasons: No Advance Directives: No Advance Directives Information Provided: Yes Do you have a plan to hurt others: No Plan Physical Exam ED Vital Signs: Vital Signs - 24 hr 10/24/24 00:21 10/24/24 00:22 10/24/24 02:52 Temperature 98.2 F 97.7 F Pulse Rate 77 73 61 Respiratory Rate 18 20 16 Blood Pressure 200/101 H 200/101 H 166/89 H Pulse Oximetry 98 98 97 Oxygen Delivery Method Room Air Room Air Room Air 10/24/24 04:28 10/24/24 06:11 10/24/24 08:04 Temperature 97.8 F 97.2 F Pulse Rate 67 61 95 Respiratory Rate 16 16 Blood Pressure 167/88 H 149/88 H 152/86 H Pulse Oximetry 98 97 Oxygen Delivery Method Room Air Room Air 10/24/24 08:04 10/24/24 08:06 10/24/24 12:03 Temperature Pulse Rate 68 77 90 Respiratory Rate Blood Pressure 160/82 H 116/77 166/94 H Pulse Oximetry Oxygen Delivery Method 10/24/24 12:03 10/24/24 12:05 Temperature Pulse Rate 69 75 Respiratory Rate Blood Pressure 140/89 H 116/76 Pulse Oximetry Oxygen Delivery Method BMI result Body Mass Index 29.5 Const General: cooperative, healthy appearing and no acute distress Orientation/consciousness: patient oriented x3 Limitations: no limitations HENMT Head: Yes normal to inspection and Yes atraumatic Ears: hearing grossly normal bilaterally General nose exam: Normal external nose present Face and sinus: Yes normal facial exam Eyes General: appearance normal, both eyes and all related structures EOM: EOMs intact bilaterally Neck Neck: Yes normal visual inspection and Yes no meningeal signs Resp Effort & Inspection: normal respiratory effort and no respiratory distress Auscultation: clear to auscultation bilaterally, no crackles and no wheezes Cardio Rate: regular rate Heart sounds: S1 normal heart sound present and S2 normal heart sound present GI Inspection: Yes normal to inspection Palpation (GI): Soft to palpation, nontender, no guarding and not rigid General: Yes no CVA tenderness Back/Spine/Pelvis Back: no CVA tenderness Skin Rashes: no rashes Wounds: no wounds Neuro General: patient oriented x3, tone normal, moves all extremities, no meningeal signs, no focal motor deficits and CN's II-XI intact bilaterally Cranial nerves: Yes CN's II-XII intact bilaterally and Yes Bilaterally intact EOM present Cognition (Neuro): normal cognition Speech: No Abnormal speech present Gait exam (Neuro): Normal gait present Motor exam (neuro): 5/5 motor strength present throughout and no tremor noted Extrem General: Yes normal to inspection Course Course Course Narrative: 0743-- no leukocytosis. Sodium mildly low at 130. Initial troponin 6.4 > repeat increased to 40.6 >> EKGs nonischemic. Will obtain additional repeat -0830--3rd repeat troponin with additional rise to 50.2 > will consult Cardiology, Dr. Finney > Dr. Finney reviewed case, does not seem ischemic at this time, patient is orthostatic and blood pressure self improved without medications. Patient does not currently take any antihypertensive medications. 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 Does not feel recent Watchman procedure as related to today's visit -we will give IVF, repeat troponin, repeat orthostatics and re-evaluate -1058--repeat troponin flat > ME unlikely. > repeat orthostatic vital signs remain positive with significant drop after IVF. Will give additional fluids in discuss case with hospitalist Medications Administered Discontinued Medications Generic Name Dose Route Start Last Admin Trade Name Isak PRN Reason Stop Dose Admin Sodium Chloride 1,000 mls @ 999 mls/hr 10/24/24 09:00 10/24/24 10:46 Ns IV 10/24/24 10:00 999 mls/hr .Q1H1M TREMAINE Administration Medical Decision Making Medical Decision Making MDM Narrative: 84-year-old female with a past medical history peripheral neuropathy, HLD, HTN, AFib on Plavix and aspirin, watchman device, presenting to the ED via EMS complaining of elevated blood pressures at home 200's/100's and generalized fatigue/weakness and lethargy. On exam initially hypertensive, on this publications writer's evaluation BP more stable, 149/88, NAD, nontoxic appearing, no focal neuro deficits. Concern for hypertension vs hypertension urgency/emergency vs viral syndrome. Rule out metabolic abnormalities. Low suspicion for severe sepsis. Rule out ACS. Unlikely DVT/PE Plan: EKG, labs, CXR, viral testing, UA, orthostatics Please refer to course for remaining clinical decision making, interpretation of labs/imaging results, and discussions with consultants and/or family members. Differential Diagnosis Differential Diagnoses: The differential diagnosis associated with the presentation includes As above Admission/Observation Consideration of admission/observation: Escalation of care including admission/observation considered Consult Healthcare Provider Management of the patient was discussed with: Low Pressure Boiler Tender Lab Data [facility] Lab Attestation statement: I reviewed the patient's lab results. 10/24/24 00:41 10/24/24 00:41 Labs: Lab Results 10/24/24 10/24/24 10/24/24 Range/Units 00:41 04:39 07:44 WBC 5.4 (4.8-10.8) X10*3/uL RBC 4.13 L (4.20-5.50) X10*6/uL Hgb 12.6 (12.0-16.0) g/dl Hct 37.0 (37.0-47.0) % MCV 89.6 (80.0-98.0) fL MCH 30.5 (27.0-33.0) pg MCHC 34.1 (31.0-35.0) g/dl RDW 12.8 (11.0-16.0) % Plt Count 222 (160-400) X10*3/uL MPV 10.4 (9.4-12.3) fL Immature Gran % (Auto) 0.4 (0.0-0.4) % Neut % (Auto) 72.1 (45-73) % Lymph % (Auto) 16.4 L (20-40) % [place] % (Auto) 7.6 (2-11) % Eos % (Auto) 2.8 (0-4) % Baso % (Auto) 0.7 (0-2) % Lymph # (Auto) 0.9 L (1.2-4.9) X10*3/uL [place] # (Auto) 0.4 (0.1-1.2) X10*3/uL Eos # (Auto) 0.2 (0.0-0.4) X10*3/uL Baso # (Auto) 0.0 (0.0-0.2) X10*3/uL Abs Immat Gran (auto) 0.02 (0.00-0.03) X10*3/uL Absolute Neuts (auto) 3.9 (2.0-8.3) x10*3/uL Absolute Nucleated RBC 0.000 (0.0-0.012) X10*3/uL Nucleated RBC % (auto) 0.0 (0.0-0.2) /100WBC Sodium 130 L (135-145) mmol/L Potassium 4.6 (3.3-5.1) mmol/L Chloride 94 L (96-108) mmol/L Carbon Dioxide 27 (22-29) mmol/L Anion Gap 14 (12-20) BUN 15 (9-16) mg/dL Creatinine 0.72 (0.5-1.4) mg/dL Estim Creat Clear Calc 59.8 Estimated GFR > 60 Random Glucose 97 (60-115) mg/dL Calcium 9.2 (8.4-10.2) mg/dL Magnesium 1.9 (1.6-2.6) mg/dL Total Bilirubin 0.5 (0.0-1.0) mg/dL AST 26 (5-31) U/L ALT 15 (0-31) U/L Alkaline Phosphatase 75 (39-117) U/L Troponin I High Sens 6.4 D 40.6 H D 50.2 H* (<3.5-17.0) ng/L Total Protein 7.1 (6.5-8.0) g/dL Albumin 4.2 (3.5-5.0) g/dL Lipase 13 (8-78) U/L Urine Color Yellow Urine Appearance Clear Urine pH 8.0 (5.0-9.0) Ur Specific [place] <= 1.005 (1.005-1.025) Urine Protein Negative (Neg-Trace) mg/dL Urine Glucose (UA) Negative (Negative) mg/dL Urine Ketones Negative (Negative) mg/dL Urine Blood Negative (Negative) Urine Nitrite Negative (Negative) Ur Leukocyte Esterase Negative (Negative) Influenza Type A (PCR) NEGATIVE (Negative) Influenza Type B (PCR) NEGATIVE (Negative) RSV RNA Qual (PCR) NEGATIVE (Negative) SARS-CoV-2 RNA (RT-PCR) NEGATIVE (Negative) 10/24/24 Range/Units 09:48 WBC (4.8-10.8) X10*3/uL RBC (4.20-5.50) X10*6/uL Hgb (12.0-16.0) g/dl Hct (37.0-47.0) % MCV (80.0-98.0) fL MCH (27.0-33.0) pg MCHC (31.0-35.0) g/dl RDW (11.0-16.0) % Plt Count (160-400) X10*3/uL MPV (9.4-12.3) fL Immature Gran % (Auto) (0.0-0.4) % Neut % (Auto) (45-73) % Lymph % (Auto) (20-40) % [place] % (Auto) (2-11) % Eos % (Auto) (0-4) % Baso % (Auto) (0-2) % Lymph # (Auto) (1.2-4.9) X10*3/uL [place] # (Auto) (0.1-1.2) X10*3/uL Eos # (Auto) (0.0-0.4) X10*3/uL Baso # (Auto) (0.0-0.2) X10*3/uL Abs Immat Gran (auto) (0.00-0.03) X10*3/uL Absolute Neuts (auto) (2.0-8.3) x10*3/uL Absolute Nucleated RBC (0.0-0.012) X10*3/uL Nucleated RBC % (auto) (0.0-0.2) /100WBC Sodium (135-145) mmol/L Potassium (3.3-5.1) mmol/L Chloride (96-108) mmol/L Carbon Dioxide (22-29) mmol/L Anion Gap (12-20) BUN (9-16) mg/dL Creatinine (0.5-1.4) mg/dL Estim Creat Clear Calc Estimated GFR Random Glucose (60-115) mg/dL Calcium (8.4-10.2) mg/dL Magnesium (1.6-2.6) mg/dL Total Bilirubin (0.0-1.0) mg/dL AST (5-31) U/L ALT (0-31) U/L Alkaline Phosphatase (39-117) U/L Troponin I High Sens 49.8 H (<3.5-17.0) ng/L Total Protein (6.5-8.0) g/dL Albumin (3.5-5.0) g/dL Lipase (8-78) U/L Urine Color Urine Appearance Urine pH (5.0-9.0) Ur Specific [place] (1.005-1.025) Urine Protein (Neg-Trace) mg/dL Urine Glucose (UA) (Negative) mg/dL Urine Ketones (Negative) mg/dL Urine Blood (Negative) Urine Nitrite (Negative) Ur Leukocyte Esterase (Negative) Influenza Type A (PCR) (Negative) Influenza Type B (PCR) (Negative) RSV RNA Qual (PCR) (Negative) SARS-CoV-2 RNA (RT-PCR) (Negative) Independent Interpretation I performed an independent interpretation of an: EKG and Plain X-Ray Radiology Impression Discussion of test interpretation with radiology: I have reviewed the radiologist's reading. Independent Historian Clinical information obtained from an independent historian. History obtained from or confirmed by: EMS External Record Review External record reviewed: Inpatient record, Office record, Outpatient record, Prior outpatient labs, Prior outpatient radiology, Primary care record and Outside ED record Tests considered The following testing was considered but not selected: As above Prescription Management I considered prescription management with: Other Chronic Conditions Patient?s care impacted by: Hypertension and Other Social Determinants Patient?s care significantly limited by Social Determinants of Health including: Other Social Determinant of Health Critical Care Time Critical Care Time Critical Care Time: Yes Total Critical Care Time: 50 Attestation: I have personally provided critical care time exclusive of time spent on separately billable procedures. Time includes review of lab data, radiology results, discussion with consultants, and monitoring for potential decompensation. Intervention performed as documented. Discharge Plan Discharge Clinical Impression: Orthostatic hypotension, Hypertension Patient Disposition: Still a Patient Prescriptions: No Action citalopram 10 mg tablet 10 mg PO DAILY simvastatin 20 mg tablet 20 mg PO DAILY@1800 amiodarone 100 mg tablet 100 mg PO BEDTIME solifenacin 10 mg tablet 10 mg PO BEDTIME polyethylene glycol 3350 [Miralax] 17 gram Powder In Packet 17 g PO DAILY cholecalciferol (vitamin D3) [Vitamin D3] 125 mcg (5,000 unit) Tablet 125 mcg PO DAILY aspirin 81 mg tablet,delayed release (DR/EC) 81 mg PO DAILY cetirizine 10 mg tablet 10 mg PO DAILY PRN clopidogrel 75 mg tablet 75 mg PO DAILY lactobacillus combination no.8 3 billion cell capsule PO BID sodium chloride 0.65 % aerosol,spray 1 spray intranasal DAILY PRN alpha lipoic acid 200 mg tablet 200 mg PO DAILY MDD 200mg Qty: 30 2RF Print Language: Venezuelan
[2024-10-24 08:12] LABS: Troponin-I High Sensitivity 50.2 ng/L (<3.5-17.0)
[2024-10-24 08:46] LABS: Influenza A PCR NEGATIVE (Negative); Influenza B PCR NEGATIVE (Negative); Resp Syncy Virus RNA Qual PCR NEGATIVE (Negative); SARS COV2 PCR INHOUSE NEGATIVE (Negative)
[2024-10-24 09:34] LABS: Appearance Urine Clear; Color Urine Yellow; Glucose Urine UA Negative (Negative); Leukocyte Esterase Urine Negative (Negative); Nitrite Urine Negative (Negative); Specific Gravity - Urine <= 1.005 (1.005-1.025); Urine Blood Negative (Negative); Urine Ketones Negative (Negative); Urine Protein Negative (Neg-Trace)
[2024-10-24 10:17] LABS: Troponin-I High Sensitivity 49.8 ng/L (<3.5-17.0)
[2024-10-24] MEDS: 0.9 % Sodium Chloride 1,000 ML 999 ML IV (10:46)
[2024-10-24] MEDS: 0.9 % Sodium Chloride 500 ML 999 ML IV (12:48)
--- NOTE | 2024-10-24 14:33 | P.HPHOSP_ITS ---
History of Present Illness Date of Service: 10/24/24 Chief Complaint: generalized malaise The patient is an 84-year-old female with a past medical history significant for hypertension, AFib status post Watchman device placement in September of 2024, peripheral neuropathy, pacemaker placement and others who presents to the hospital with a several-day history generalized malaise. The patient that her blood pressure reading at on the day prior to hospitalization was over 200 systolic. She endorses generalized fatigue and weakness as well as feeling more lethargic sick. She does endorse some symptoms of feeling dizzy/lightheaded with position changes, which have been long standing. She denies shortness of breath in general, but states she did have some SOB when her BP was elevated at home. In the ED, pt initially found to be hypertensive over 200/100; Initial trop neg, but increased to max of 50 and latest is decreased to 48. EKG with non-specific T wave changes. Found to be orthostatic with SBP dropping >30; Given 1.5L of IVF but remains orthostatic, hence will be admitted for further eval and treatment. Pt is seen and examined in the ED around 2pm. She denies any current symptoms other than weakness. No cp, sob, DODD, dizziness, abd symptoms. Review of Systems 2 Review of Systems: Negative except HPI/interval history. 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 Neuropathy Falls frequently Anxious mood Tremors of nervous system Arthritis Hyperlipidemia HTN (hypertension) Atrial fibrillation FH: total knee replacement Pacemaker Family History Mother Dementia Surgical History History of hip replacement History of carpal tunnel surgery Social History Household Members: Children Household Members Other:: DAUGHTER ALEJANDRA Alcohol intake: current Alcohol intake frequency: a few times a month Comment: OCCASIONAL Patient Tobacco Use Status: Never used Tobacco Smoked in Last 30 Days: No Use of substances other than those prescribed or required for medical reasons: No Advance Directives: No Advance Directives Information Provided: Yes Do you have a plan to hurt others: No Plan Meds Allergies Allergy/AdvReac Type Severity Reaction Status Date / Time No Known Allergies Allergy Verified 10/24/24 00:23 Home Medications ?Medication ?Instructions ?Recorded ?Confirmed ?Last Taken ?Type amiodarone 100 mg tablet 100 mg PO BEDTIME 09/02/23 10/24/24 10/23/24 History cholecalciferol (vitamin D3) 125 125 mcg PO DAILY 09/02/23 10/24/24 10/23/24 History mcg (5,000 unit) tablet (Vitamin D3) citalopram 10 mg tablet 10 mg PO DAILY 09/02/23 10/24/24 10/23/24 History polyethylene glycol 3350 17 gram 17 g PO DAILY@1800 09/02/23 10/24/24 10/23/24 History oral powder packet (Miralax) simvastatin 20 mg tablet 20 mg PO DAILY@1800 09/02/23 10/24/24 10/23/24 History solifenacin 10 mg tablet 10 mg PO BEDTIME 09/02/23 10/24/24 10/23/24 History aspirin 81 mg tablet,delayed 81 mg PO DAILY 10/03/24 10/24/24 10/23/24 History release cetirizine 10 mg tablet 10 mg PO BEDTIME PRN allergies 10/03/24 10/24/24 10/23/24 History clopidogrel 75 mg tablet 75 mg PO DAILY 10/03/24 10/24/24 10/23/24 History sodium chloride 0.65 % nasal spray 1 spray intranasal DAILY PRN 10/03/24 10/24/24 10/23/24 History aerosol Dryness, Congestion, Nasal irrit, Post-nasal drip melatonin 3 mg tablet 3 mg PO BEDTIME PRN Sleep 10/24/24 10/24/24 Unknown History Physical Exam 2 Vital Signs and Narrative: Vital Signs: Last Vital Signs Temp 97.2 F 10/24/24 06:11 Pulse 75 10/24/24 12:05 Resp 16 10/24/24 06:11 BP 116/76 10/24/24 12:05 Pulse Ox 97 10/24/24 06:11 O2 Del Method Room Air 10/24/24 06:11 BMI result Body Mass Index 29.5 Const: Other: Constitutional - Awake and Alert, No apparent distress Eyes - PERRLA, EOMI Cardiovascular - S1S2, RRR, No edema Respiratory - Normal lung expansion, Normal respiratory effort, No respiratory distress, CTA bilaterally Gastrointestinal - NT / ND; +BS; No rebound or guarding - No CVA tenderness Extremities - no calf tenderness bilaterally, no swelling Musculoskeletal - Normal inspection, normal ROM Skin - Warm/Dry Neurological - Alert & oriented x3, No focal deficit Psychological - Appropriate affect Results Labs 10/24/24 00:41 10/24/24 00:41 Labs: Laboratory Results - last 24 hr 10/24/24 10/24/24 00:41 07:44 MCV 89.6 MCH 30.5 MCHC 34.1 RDW 12.8 Plt Count 222 MPV 10.4 Immature Gran % (Auto) 0.4 Neut % (Auto) 72.1 Lymph % (Auto) 16.4 L [place] % (Auto) 7.6 Eos % (Auto) 2.8 Baso % (Auto) 0.7 Lymph # (Auto) 0.9 L [place] # (Auto) 0.4 Eos # (Auto) 0.2 Baso # (Auto) 0.0 Abs Immat Gran (auto) 0.02 Absolute Neuts (auto) 3.9 Absolute Nucleated RBC 0.000 Nucleated RBC % (auto) 0.0 Anion Gap 14 Estim Creat Clear Calc 59.8 Estimated GFR > 60 Random Glucose 97 Calcium 9.2 Magnesium 1.9 Total Bilirubin 0.5 AST 26 ALT 15 Alkaline Phosphatase 75 Total Protein 7.1 Albumin 4.2 Lipase 13 Urine Color Yellow Urine Appearance Clear Urine pH 8.0 Ur Specific [place] <= 1.005 Urine Protein Negative Urine Glucose (UA) Negative Urine Ketones Negative Urine Blood Negative Urine Nitrite Negative Ur Leukocyte Esterase Negative Influenza Type A (PCR) NEGATIVE Influenza Type B (PCR) NEGATIVE RSV RNA Qual (PCR) NEGATIVE SARS-CoV-2 RNA (RT-PCR) NEGATIVE Imaging Radiologist's Impressions: Impressions Chest X-Ray 10/24/24 12:58 IMPRESSION: No acute airspace disease. No pulmonary edema. Electronically signed by: Rafael Garcia MD 10/24/2024 01:13 PM EST Assessment and Plan (1) Orthostatic hypotension: Status: Acute Plan 84 yo F presenting with generalized weakness/fatigue/malaise found to be orthostatic with labile BP and elevated trops. Placed under obs for further eval and treatment. 1. Orthostatic hypotension BP dropped from 152/86 to 116/77 --> treated with 1.5L IVF but remained with similar drop post fluids will give gentle IV hydration and repeat orthos in the AM 2. Labile BP 2a. Elevated trop-I likely due to demand ischemia delta > 50% pt without any anginal symptoms trend -- will repeat tomorrow AM will ask cardiology for input 3. PAF s/p watchman last month continue amio; on DAPT will continue 4. Mood continue baseline meds 5. HypoNa likey hypovoluemic repeat tomorrow Full Code DVT pptx - lovenox Quality Stroke Does the patient have a stroke diagnosis?: No VTE Prior VTE?: No VTE Risk Level:: Medical - moderate - high VTE Device Contraindication: N/A - Device Ordered VTE Drug Contraindication: N/A - Med Ordered
--- NOTE | 2024-10-24 15:35 | PHA.MEDREC ---
Pharmacy Consult ? Medication Reconciliation Pharmacy has completed the medication reconciliation, completed by Irving.
[2024-10-24] MEDS: 0.9 % Sodium Chloride Flush 3 ML SYRINGE IVFLUSH (16:04)
[2024-10-24] MEDS: Lactated Ringers 1,000 ML 80 ML IVCONT (16:04)
[2024-10-24] MEDS: Clopidogrel Bisulfate 75 MG TABLET PO (16:04)
[2024-10-24] MEDS: Aspirin Enteric Coated 81 MG TABLET.DR PO (16:04)
[2024-10-24] MEDS: Loratadine 10 MG TABLET PO (18:22)
[2024-10-24] MEDS: polyethylene glycoL 3350 17 GM POWD.PACK PO (18:22)
[2024-10-24] MEDS: Atorvastatin Calcium 10 MG TABLET PO (18:22)
--- NOTE | 2024-10-24 19:25 | PC.NURSE ---
Resumed care of patient at 1500, pt was resting comfortably in bed with daughter at bedside, pt admissions orders placed at this time, went over plan going forward at this time. Pt and daughter in agreement, IV dressing changed at this time. LR running per order. Pt has small rash noted on shoulders, small red dots noted, pt given claritin, changed out of clothing to see, pt reporting it is not getting worse at this time. Pt ecouraged to walk to the bathroom with staff during the day, but offered to do purwic at night time. Pt resting comfortably in bed with no complaints of pain, all personal needs met at time. Call chase within reach
[2024-10-24] MEDS: Amiodarone HCL 200 MG TABLET 100 MG PO (20:51)
[2024-10-25] VITALS (9 sets, daily range): BP systolic 120–181; BP diastolic 66–99; PULSE 65–101; RESP 18–19; TEMP 36.3–36.8; O2SAT 95–99
--- NOTE | 2024-10-25 06:30 | PC.ADMIT ---
Very pleasant 84yr old female admitted from ED for weakness and found to have increased troponins. She denies cp, sob, n/v. She initially is a little unsteady on her feet but currently ambulating with walker and standby. Alert/orientd x4, denies pain, tolerating regular diet. Patient is initially hypertensive into the 180s systolic, came down to 140 but remains elevated. Positive orthostatic vitals this morning which were not corrected with IV fluids. Patient is asymptomatic. Atrial paced on tele. Lungs are cta, no GI issues, passing flatus. Uses mirilax at home. Continent of both stool and urine. Ambulated to br to void. Very little sleep last night. Uses melatonin at home. Will continue to monitor
--- NOTE | 2024-10-25 07:00 | CA_ITS ---
Transthoracic Echocardiogram Patient (Last, First, Middle): Kaci Hernandez, Gender: Female Date of : 1940 Age: 84 Procedure Date: 10/25/2024 Procedure Type: Transthoracic [place] [facility] [place]: 167.64 cm Weight: 72.58 kg BSA: 1.82 m2 Heart Rate: bpm BP: 122 / 60 mmHg Manager [employer]: Referring MD: Addy Finney MD Symptoms: elevated troponin Study Quality: Good ECG Rhythm: Sinus Conclusions: - The left ventricular systolic function is hyperdynamic. The calculated ejection fraction is 71% by biplane method. - Evidence suggests grade II (moderate) diastolic dysfunction. - The left atrium is severely dilated. Findings Left Ventricle Normal left ventricular cavity size. There is mildly increased left ventricular wall thickness. The left ventricular systolic function is hyperdynamic. The calculated ejection fraction is 71% by biplane method. There is no evidence of regional wall motion abnormalities. Evidence suggests grade II (moderate) diastolic dysfunction. Right Ventricle Normal right ventricular cavity size and systolic function. There is a pacemaker wire seen in the right ventricle. Atria The left atrium is severely dilated. The right atrium is normal in size. Aortic Valve There is a normal trileaflet aortic valve. There is no aortic valve stenosis. There is no aortic valve regurgitation. Mitral Valve There is mild mitral annular calcification. There is mild mitral valve regurgitation. There is no mitral valve stenosis. Pulmonic Valve There is trace to mild pulmonic valve regurgitation. Tricuspid Valve There is mild tricuspid valve regurgitation. There is no evidence of pulmonary hypertension. Great Vessels The asc aorta is normal in size. Venous The inferior vena cava is normal in size and collapses greater than 50% with inspiration. Pericardium/Pleural There is no evidence of pericardial effusion. Prior Study Comparison No prior study available for comparison. Measurements 2D Linear Measurements IVSd: 1.22 0.6-0.9/0.6-1.0 cm LVIDd: 4.45 3.9-5.3/4.2-5.9 cm LVIDd Index: 2.45 2.4-3.2/2.2-3.1 cm/m2 LVIDs: 2.77 2.0-3.6 cm LVPWd: 1.24 0.7-1.1 cm Ao Root: 3.20 2.1-3.5 cm LA Diam: 3.20 2.7-3.8/3.0-4.0 cm LAIDs Index: 1.76 1.5-2.3 cm/m2 LV Mass: 251.49 67-162/88-224 g LV Mass Index: 138.18 43-95/49-115 g/m2 LVOT Diam: 2.10 3.0+(-)1.3 cm 2D Systolic Function EF 4C: 74.40 >55% EF 2C: 67.70 >55% EF BiP: 71.10 >55% Mitral Valve MV Pk E: 0.84 MV PK A: 0.68 MV Decel Time: 173.00 E/A: 1.20 E'Lateral: 3.92 E'Medial: 3.81 E/E' Med: 21.90 E/E' Lat: 21.30 PHT: 51.00 MVA PHT: 4.31 Decel Ralls: 4.82 Aortic Valve AoV Pk Stefano: 1.41 AoV Mn Stefano: 0.86 AoV VTI: 0.32 AoV Pk Grad: 8.00 Aov Mn Grad: 4.00 IAIN Cont.VTI: 2.43 LVOT LVOT Pk Stefano: 1.04 LVOT Mn Stefano: 0.67 LVOT VTI: 0.23 LVOT Pk Grad: 4.00 LVOT Mn Grad: 2.00 LVOT Diam: 2.10 LVOT Area: 3.46 Diastolic Function MV Pk E: 0.84 MV Pk A: 0.68 E/A: 1.20 E'Medial: 3.81 E/E' Med: 21.90 E' Laterial: 3.92 E/E' Lat: 21.30 Right Ventricle TAPSE (mm): 25.00 TVS' Stefano: 16.00 Tricuspid Valve TR Pk Stefano: 2.54 TR Pk Grad: 26.00 RA Press: 3.00 RVSP: 29.00 Great Vessels Aorta Ao Root-2D: 3.20 2.0-3.7 cm Ao Asc: 3.50 2.1-3.4 cm Pulmonary Valve PV Pk Stefano: 0.98 Peak PV Grad: 4.00 Updated in Other Vendor System with Status of Final Addy Finney MD electronically signed on 10/25/2024 12:57:18 PM with status of Final
[2024-10-25 07:41] LABS: Anion Gap 10 (12-20); Blood Urea Nitrogen 8 mg/dL (9-16); Calcium 8.7 mg/dL (8.4-10.2); Carbon Dioxide 26 mmol/L (22-29); Chloride 104 mmol/L (96-108); Creatinine Clr Calc Pharmacy 65.5; Estimated Glomerular Filt Rate > 60; Glucose Random 82 mg/dL (60-115); Potassium 3.9 mmol/L (3.3-5.1); Sodium 136 mmol/L (135-145)
[2024-10-25] MEDS: Clopidogrel Bisulfate 75 MG TABLET PO (08:33)
[2024-10-25] MEDS: Aspirin Enteric Coated 81 MG TABLET.DR PO (08:33)
[2024-10-25] MEDS: Cholecalciferol (Vitamin D3) 25 MCG TABLET 125 MCG PO (08:33)
[2024-10-25] MEDS: Escitalopram Oxalate 5 MG TABLET PO (08:34)
[2024-10-25] MEDS: 0.9 % Sodium Chloride Flush 3 ML SYRINGE IVFLUSH (08:34)
--- NOTE | 2024-10-25 10:34 | P.CONCA_ITS ---
History of Present Illness History of Present Illness Date of Service: 10/25/24 Chief complaint: Weakness, elevated trop Narrative: This is a cardiology consultation regarding high blood pressure as well as elevated troponins. Patient generally goes to cardiology [place]. Due to recurring falls, she underwent a Watchman device placement last month. She states that she generally checks her blood pressure and is mostly only the 120s. For the last few days, she just did not feel very well. Nonspecific symptoms. In this context, she checked her blood pressure ST-T a dome it was almost 200 mm Hg systolic and that led to ER visit. It was rechecked here and it seems blood pressure was still high. Over the next several hours, the blood pressure spontaneously improved without any medications. After that, it seems that it has been up and down. Most recently, 120/80 mm Hg. Overall, labile readings without any interventions. Main complaint is tiredness but nothing else. No cardiac symptoms like angina. No documented coronary disease. Per patient, no recent stress testing. Review of Systems 2 Review of Systems: Yes all other systems are reviewed and are negative Constitutional: Constitutional: Reports as per HPI and Reports no additional constitutional complaints Eyes: Eyes: Reports as per HPI and Denies no additional eye complaints ENT: Denies system reviewed and no additional complaints, except as documented and Reports as per HPI Cardiovascular: Cardiovascular: Reports as per HPI, Reports no additional cardiovascular complaints, Denies acrocyanosis, Denies cool extremities, Denies chest pain, Denies leg edema, Denies lightheadedness, Denies palpitations and Denies dyspnea Respiratory: Respiratory: Reports as per HPI, Denies no additional respiratory complaints and Denies dyspnea Gastrointestinal: Gastrointestinal: Reports as per HPI and Denies no additional gastrointestinal complaints Genitourinary: Genitourinary: Reports as per HPI Musculoskeletal: Musculoskeletal: Reports no additional musculoskeletal complaints and Reports as per HPI Integumentary/Breasts: Skin/Breast: Reports system reviewed and no additional complaints, except as docu Neurologic: Reports system reviewed and no additional complaints, except as documented and Reports as per HPI Psychiatric: Psychiatric: Reports no additional psychiatric complaints and Reports as per HPI Endocrine: Endocrine: Reports no additional endocrine complaints, Reports as per HPI and Denies palpitations Hematologic/Lymphatic: Hematologic/Lymphatic: Reports no additional hematologic/lymphatic complaints and Reports as per HPI Allergic/Immunologic: Allergic/Immunologic: Reports no additional allergic/immunologic complaints and Reports as per HPI [facility] Past Medical History Medical History Peripheral neuropathy Gait disorder 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 Hammer toes of both feet Neuropathy Falls frequently Anxious mood Tremors of nervous system Arthritis Hyperlipidemia HTN (hypertension) Atrial fibrillation FH: total knee replacement Pacemaker Family History Family History Mother Dementia Surgical History Surgical History History of hip replacement History of carpal tunnel surgery Social History Social History Household Members: Other Household Members Other:: daughter and son in law Housing: House Do you presently have visiting nurse or other home services: No Alcohol intake: current Alcohol intake frequency: a few times a month Comment: OCCASIONAL Patient Tobacco Use Status: Never used Tobacco Meds Allergies Allergy/AdvReac Type Severity Reaction Status Date / Time No Known Allergies Allergy Verified 10/24/24 00:23 Active Medications: Current Medications Acetaminophen (Acetaminophen 325 Mg Tablet) 650 mg PO Q6H PRN PRN Reason: Pain, Mild 1-3,fever,headache Amiodarone HCl (Amiodarone Hcl 200 Mg Tablet) 100 mg PO BEDTIME [facility] Last Admin: 10/24/24 20:51 Dose: 100 mg Aspirin (Aspirin Enteric Coated 81 Mg Tablet.) 81 mg PO DAILY [facility] Last Admin: 10/25/24 08:33 Dose: 81 mg Atorvastatin Calcium (Atorvastatin Calcium 10 Mg Tablet) 10 mg PO DAILY@1800 [facility] Last Admin: 10/24/24 18:22 Dose: 10 mg Calcium Carbonate (Calcium Carbonate 750 Mg Tab.Chew) 750 mg PO Q4H PRN PRN Reason: Heartburn Clopidogrel Bisulfate (Clopidogrel Bisulfate 75 Mg Tablet) 75 mg PO DAILY [facility] Last Admin: 10/25/24 08:33 Dose: 75 mg Enoxaparin Sodium (Enoxaparin Sodium 40 Mg/0.4 Ml Syringe) 40 mg SUBCUT Q24H [facility] Last Admin: 10/24/24 16:04 Dose: Not Given Escitalopram Oxalate (Escitalopram Oxalate 5 Mg Tablet) 5 mg PO DAILY [facility] Last Admin: 10/25/24 08:34 Dose: 5 mg Lactated Ringer's (Lr) 1,000 mls @ 80 mls/hr IVCONT .[id number] [facility] Stop: 10/25/24 15:59 Last Admin: 10/25/24 06:29 Dose: Not Given Loratadine (Loratadine 10 Mg Tablet) 10 mg PO BEDTIME PRN PRN Reason: allergies Last Admin: 10/24/24 18:22 Dose: 10 mg Magnesium Hydroxide (Milk Of Magnesia 30 Ml Oral.Susp) 30 ml PO DAILY PRN PRN Reason: Constipation Melatonin (Melatonin 3 Mg Tablet) 6 mg PO BEDTIME PRN PRN Reason: Insomnia Melatonin (Melatonin 3 Mg Tablet) 3 mg PO BEDTIME PRN PRN Reason: Sleep Polyethylene Glycol (Polyethylene Glycol 3350 17 Gm Powd.Pack) 17 gm PO DAILY@1800 [facility] Last Admin: 10/24/24 18:22 Dose: 17 gm Sodium Chloride (0.9 % Sodium Chloride Flush 3 Ml Syringe) 3 ml IVFLUSH QSHIFT [facility] Last Admin: 10/25/24 08:34 Dose: 3 ml Vitamin D (Cholecalciferol (Vitamin D3) 25 Mcg Tablet) 125 mcg PO DAILY [facility] Last Admin: 10/25/24 08:33 Dose: 125 mcg Home Medications ?Medication ?Instructions ?Recorded ?Confirmed ?Last Taken ?Type amiodarone 100 mg tablet 100 mg PO BEDTIME 09/02/23 10/24/24 10/23/24 History cholecalciferol (vitamin D3) 125 125 mcg PO DAILY 09/02/23 10/24/24 10/23/24 History mcg (5,000 unit) tablet (Vitamin D3) citalopram 10 mg tablet 10 mg PO DAILY 09/02/23 10/24/24 10/23/24 History polyethylene glycol 3350 17 gram 17 g PO DAILY@1800 09/02/23 10/24/24 10/23/24 History oral powder packet (Miralax) simvastatin 20 mg tablet 20 mg PO DAILY@1800 09/02/23 10/24/24 10/23/24 History solifenacin 10 mg tablet 10 mg PO BEDTIME 09/02/23 10/24/24 10/23/24 History aspirin 81 mg tablet,delayed 81 mg PO DAILY 10/03/24 10/24/24 10/23/24 History release cetirizine 10 mg tablet 10 mg PO BEDTIME PRN allergies 10/03/24 10/24/24 10/23/24 History clopidogrel 75 mg tablet 75 mg PO DAILY 10/03/24 10/24/24 10/23/24 History sodium chloride 0.65 % nasal spray 1 spray intranasal DAILY PRN 10/03/24 10/24/24 10/23/24 History aerosol Dryness, Congestion, Nasal irrit, Post-nasal drip melatonin 3 mg tablet 3 mg PO BEDTIME PRN Sleep 10/24/24 10/24/24 Unknown History Physical Exam 2 Vital Signs: Vital Signs: Last Vital Signs Temp 97.7 F 10/25/24 08:00 Pulse 67 10/25/24 09:50 Resp 19 10/25/24 08:00 BP 120/80 10/25/24 09:50 Pulse Ox 97 10/25/24 08:00 O2 Del Method Room Air 10/25/24 08:00 BMI result Body Mass Index 27.8 Const: General: comfortable and no acute distress O rientation/consciousness: patient oriented x3 HEENT: Other: Unremarkable Head: Yes normal to inspection Neck: Neck: Yes normal visual inspection Chest: Chest palpation & inspection: normal inspection of the chest Resp: Auscultation: clear to auscultation bilaterally Cardio: Palpation: normal PMI Heart sounds: S1 normal heart sound present, S2 normal heart sound present, no gallops, no murmurs and no rubs GI: Palpation (GI): Soft to palpation Back/Spine/Pelvis: Other: unremarkable Skin: General skin exam: no rashes or lesions noted Neuro: General: patient oriented x3 Extrem: General: Yes normal to inspection Psych: Mental Status: mental status grossly normal Objective Labs and Meds 10/24/24 00:41 10/25/24 06:32 Lab results: Laboratory Results - last 24 hr 10/25/24 06:32 Sodium 136 Potassium 3.9 Chloride 104 Carbon Dioxide 26 Anion Gap 10 L BUN 8 L Creatinine 0.64 Estim Creat Clear Calc 65.5 Estimated GFR > 60 Random Glucose 82 Calcium 8.7 ECG Interpretation: EKG with underlying sinus rhythm at 65/Min; no significant ST-T changes; normal RI and corrected QT. Imaging Radiologist's impression: Impressions Chest X-Ray 10/24/24 12:58 IMPRESSION: No acute airspace disease. No pulmonary edema. Electronically signed by: Rafael Garcia MD 10/24/2024 01:13 PM [facility] Assessment and Plan (1) Hypertension: Status: Acute (2) Orthostatic hypotension: Status: Acute (3) Elevated troponin: Status: Acute Plan High sensitivity troponins slightly elevated but flat. Labile blood pressure readings. Explained the fact that labile hypertension with intermittent high readings is generally difficult to treat as giving a regular blood pressure medication can also cause hypotension episodes. That could lead to syncopal episodes and it seems that she already has a history of recurring falls which required a Watchman device. Hence consider adding and medication like amlodipine 2.5 mg but take only if the blood pressure goes above a sudden level, approximately 150-160/100 mm Hg, as it also seems to spontaneously improve. Elevated troponins is slight and most likely from demand. At her age, could have underlying coronary disease but she has got no chest pains. We will check an echocardiogram. Generally adviced conservative care with lack of symptoms. Discussed with daughter at the bedside. Procedures Date of Service Date of Service: 10/25/24
--- NOTE | 2024-10-25 10:46 | MHC.CM.PN ---
Crystal 10/25/24, Pt lives with her dtr and son in law. She does not have any home health services, for DME, she has a walker and a cane. PCP is confirmed: Flex Roque. Dtr to transport home at DC. DCP: home, self care. CM to follow for DC needs.
--- NOTE | 2024-10-25 12:02 | PM.DS ---
DS: Providers Provider Date of Service: 10/25/24 Date of admission: 10/24/24 14:35 Date of discharge: 10/25/24 Primary care physician: lFex Roque MD Consults: 10/24/24 14:32 Consult to Cardiology Routine Consulting Provider: [facility] [place] [facility] Reason for consultation: labile BP, orthostasis, delta trop > 50 DS: Diagnosis Discharge Diagnosis (1) Hypertension: Status: Acute (2) Orthostatic hypotension: Status: Acute (3) Elevated troponin: Status: Acute DS: Summary Hospital Course Hospital Course: HPI From admission H&P: The patient is an 84-year-old female with a past medical history significant for hypertension, AFib status post Watchman device placement in September of 2024, peripheral neuropathy, pacemaker placement and others who presents to the hospital with a several-day history generalized malaise. The patient that her blood pressure reading at on the day prior to hospitalization was over 200 systolic. She endorses generalized fatigue and weakness as well as feeling more lethargic sick. She does endorse some symptoms of feeling dizzy/lightheaded with position changes, which have been long standing. She denies shortness of breath in general, but states she did have some SOB when her BP was elevated at home. In the ED, pt initially found to be hypertensive over 200/100; Initial trop neg, but increased to max of 50 and latest is decreased to 48. EKG with non-specific T wave changes. Found to be orthostatic with SBP dropping >30; Given 1.5L of IVF but remains orthostatic, hence will be admitted for further eval and treatment. Pt is seen and examined in the ED around 2pm. She denies any current symptoms other than weakness. No cp, sob, DODD, dizziness, abd symptoms. Hospital Course: Patient was admitted for generalized malaise. She was found to be orthostatic. She was treated with gentle IV hydration. Orthostatics have improved but still remain positive, nonetheless patient essentially has no symptoms. She was also noted to have labile blood pressures with readings going over 180 and improving into the normal range on their own. A cardiology consult was requested. Decision was made for p.r.n. amlodipine 2.5 mg for systolic blood pressure over 160 at home. Patient also had elevated troponins, likely due to significantly elevated blood pressures. She underwent a 2D echo which showed . Patient is improved and will be discharged home. VNA services will be arranged for management of blood pressure. Time Attestation Discharge Coordination Time (in mins): less than 30 Quality: Safe Use of Opioids Does Pt have an Active Cancer Diagnosis on the Problem List?: No Quality: Stroke Does the patient have a stroke diagnosis?: No Physical Exam Vital Signs: Vital Signs: Last Vital Signs Temp 98.3 F 10/25/24 11:36 Pulse 65 10/25/24 11:36 Resp 18 10/25/24 11:36 BP 121/70 10/25/24 11:36 Pulse Ox 95 10/25/24 11:36 O2 Del Method Room Air 10/25/24 11:36 BMI result Body Mass Index 27.8 DS: Data Data Completed and Pending Labs on day of discharge: Laboratory Results - last 24 hr 10/25/24 06:32 Sodium 136 Potassium 3.9 Chloride 104 Carbon Dioxide 26 Anion Gap 10 L BUN 8 L Creatinine 0.64 Estim Creat Clear Calc 65.5 Estimated GFR > 60 Random Glucose 82 Calcium 8.7 Discharge Plan Discharge Anticipated Discharge Date/Time: 10/25/24 14:00 Patient Disposition: Home Health Service Discharge Diagnosis: Labile BP Referrals: Felx Roque MD [Primary Care Provider] - 1 Week Discharge Medications: New amlodipine [Norvasc] 2.5 mg tablet 2.5 mg PO DAILY PRN (Reason: SBP > 160) Qty: 90 0RF Continued melatonin 3 mg Tablet 3 mg PO BEDTIME PRN (Reason: Sleep) citalopram 10 mg tablet 10 mg PO DAILY simvastatin 20 mg tablet 20 mg PO DAILY@1800 amiodarone 100 mg tablet 100 mg PO BEDTIME solifenacin 10 mg tablet 10 mg PO BEDTIME polyethylene glycol 3350 [Miralax] 17 gram Powder In Packet 17 g PO DAILY@1800 cholecalciferol (vitamin D3) [Vitamin D3] 125 mcg (5,000 unit) Tablet 125 mcg PO DAILY aspirin 81 mg tablet,delayed release (DR/EC) 81 mg PO DAILY cetirizine 10 mg tablet 10 mg PO BEDTIME PRN (Reason: allergies) clopidogrel 75 mg tablet 75 mg PO DAILY sodium chloride 0.65 % aerosol,spray 1 spray intranasal DAILY PRN (Reason: Dryness, Congestion, Nasal irrit, Post-nasal drip) Discharge Orders: Discharge Order (Routine); Ordered 10/25/24 Ordered By: Gregorio Gay Diet: Advance to usual diet Activity on Discharge: As tolerated Stand Alone Forms: Patient Portal Discharge page Print Language: Occitan Care Plan Goals: To stay healthy and out of the hospital. Health Concerns: Labile blood pressure readings Plan of Treatment: Take your medications as you have been previously doing. If your blood pressure at home is greater than 160 systolic (top number) take amlodipine 2.5 mg. Follow-up with your primary care provider's and your java enterprise architect. Assessment: see discharge summary
--- NOTE | 2024-10-25 12:04 | W.MHC.F2F ---
Service Date Service Date: 10/25/24 Encounter Date of encounter: 10/25/24 Reasons for Services Signs and symptoms assessed: labile bp Reason for long-term: teach disease management (Orthostatic hypotension, labile blood pressures) Overseeing Care: Flex Roque Homebound: Leaving the home is medically contraindicated at this time without the asist of a device and/or another person due th the listed conditions above and below. Reason homebound: other (Labile blood pressures, fall risk) Certification: Based on the above findings, I certify that this patient is confined to the home and needs intermittent long-term care, physical therapy and/or speech therapy, or continues to need occupational therapy. The patient is under my care, and I have initiated the establishment of the plan of care. The patient will be followed by a physician who will periodically review the plan of care. Time Spent With Patient Time: Total time managing care of this patient today ____ minutes.
--- NOTE | 2024-10-25 14:48 | MHC.CM.PN ---
Pt has been medically cleared to go home, she will go via family transport. referral for home care service in to [facility].
== END 2024-10-25 14:31 | disposition home health service (06) ==
LOC: HO.ED 09:20 → HO.EDOVER 14:35 → HO.IMC 17:58
PROVIDERS: Physician Assistant; Admitting Provider Family Medicine; Emergency Provider Emergency Medicine; PCP Pediatrics; Visit Provider Family Medicine
DX: I95.1 Orthostatic hypotension (principal); I10 Essential (primary) hypertension; R79.89 Other specified abnormal findings of blood chemistry; R53.83 Other fatigue; I48.0 Paroxysmal atrial fibrillation; E87.1 Hypo-osmolality and hyponatremia; Z91.81 History of falling; Z95.0 Presence of cardiac pacemaker; Z03.818 Encounter for observation for suspected exposure to other biological agents ruled out
CPT/HCPCS: 0241U; 36415; 71045; 80048; 80053; 81003; 83690; 83735; 84484; 85025; 93005; 93306; 96360; 96361; 99222; 99285; J7120

== ENCOUNTER → 2024-10-24 00:30 | Outpatient (BNV) | payer MEDICARE, OTHER, SELFPAY | PROVIDERS: Admitting Provider Family Medicine; Emergency Provider Emergency Medicine; PCP Pediatrics; Visit Provider Internal Medicine | DX: I10 Essential (primary) hypertension (principal) | CPT/HCPCS: 93010 ==

== ENCOUNTER → 2024-10-24 12:58 | Outpatient (BNV) | payer MEDICARE, OTHER, SELFPAY | PROVIDERS: Emergency Provider Emergency Medicine; PCP Pediatrics; Visit Provider Radiology Diagnostic Radiology | DX: R53.1 Weakness (principal) | CPT/HCPCS: 71045 ==

== ENCOUNTER 2024-10-24 14:35 | Outpatient (BNV) | payer MEDICARE, OTHER, SELFPAY | END 2024-10-25 07:00 | PROVIDERS: Admitting Provider Family Medicine; Emergency Provider Emergency Medicine; PCP Pediatrics; Visit Provider Internal Medicine | DX: I34.0 Nonrheumatic mitral (valve) insufficiency (principal); I37.1 Nonrheumatic pulmonary valve insufficiency; I36.1 Nonrheumatic tricuspid (valve) insufficiency; I51.7 Cardiomegaly; I51.89 Other ill-defined heart diseases | CPT/HCPCS: 93306 ==

== ENCOUNTER → 2024-10-24 14:35 | Outpatient (BNV) | payer MEDICARE, OTHER, SELFPAY | PROVIDERS: Admitting Provider Family Medicine; Emergency Provider Emergency Medicine; PCP Pediatrics; Visit Provider Family Medicine | DX: I95.1 Orthostatic hypotension (principal) | CPT/HCPCS: 99222; 99238; G0180 ==

== ENCOUNTER → 2024-10-24 14:35 | Outpatient (BNV) | payer MEDICARE, OTHER, SELFPAY | PROVIDERS: Admitting Provider Family Medicine; Emergency Provider Emergency Medicine; PCP Pediatrics; Visit Provider Internal Medicine | DX: I10 Essential (primary) hypertension (principal); I95.1 Orthostatic hypotension; R79.89 Other specified abnormal findings of blood chemistry | CPT/HCPCS: 99223 ==

== ENCOUNTER 2024-12-24 02:10 | Emergency (ER) | payer MEDICARE, OTHER, SELFPAY ==
[2024-12-24] VITALS (9 sets, daily range): BP systolic 110–185; BP diastolic 89–117; PULSE 85–135; RESP 11–26; TEMP 36.4–36.9; O2SAT 93–98; BMI 25.1
--- NOTE | ~2024-12-24 | US_ITS ---
CLINICAL HISTORY: Swelling Venous duplex ultrasound left lower extremity Comparison: None Findings: The visualized deep veins are fully compressible with normal Doppler color flow and spectral tracings. No popliteal cyst. Subcutaneous edema at the level of the left ankle. IMPRESSION: 1. Negative for left lower extremity deep vein thrombosis. This document has been electronically signed by: Raman Junior MD on 12/24/2024 06:03:09
--- NOTE | ~2024-12-24 | XR_ITS ---
CLINICAL HISTORY: Hypertension 1 view chest x-ray. Comparison: CR/MT/SR - XR CHEST 1V - 10/24/24 12:56 EST Findings: The lungs appear clear. There is no consolidation, effusion, or pneumothorax. Cardiomediastinal silhouette is within normal limits. There is a Watchman device in the left atrial appendage. Pacemaker leads are in the right atrium and right ventricle. IMPRESSION: No acute cardiopulmonary abnormality. This document has been electronically signed by: Sky Watkins MD on 12/24/2024 04:15:45
--- NOTE | 2024-12-24 02:21 | ED_ITS ---
HPI - General Adult General Chief complaint: General Medical Stated complaint: Hypertensive & polyuria for several days Time Seen by Provider: 12/24/24 02:12 Source: patient and EMS Mode of arrival: EMS Limitations: no limitations History of Present Illness ED Provider: DR. Nguyen HPI narrative: 84-year-old female with past medical history significant for hypertension, AFib s/p watchman device placement, peripheral neuropathy, pacemaker presented today for frequency urination, patient also been complaining blood pressure at home was elevated, no headache, no chest pain, no shortness of breath. Left leg is swollen more than the right leg, no pain, no recent travel, no recent prolonged immobilization. Related Data Home Medications ?Medication ?Instructions ?Recorded ?Confirmed amiodarone 100 mg tablet 100 mg PO BEDTIME 09/02/23 10/24/24 cholecalciferol (vitamin D3) 125 125 mcg PO DAILY 09/02/23 10/24/24 mcg (5,000 unit) tablet (Vitamin D3) citalopram 10 mg tablet 10 mg PO DAILY 09/02/23 10/24/24 polyethylene glycol 3350 17 gram 17 g PO DAILY@1800 09/02/23 10/24/24 oral powder packet (Miralax) simvastatin 20 mg tablet 20 mg PO DAILY@1800 09/02/23 10/24/24 solifenacin 10 mg tablet 10 mg PO BEDTIME 09/02/23 10/24/24 aspirin 81 mg tablet,delayed 81 mg PO DAILY 10/03/24 10/24/24 release cetirizine 10 mg tablet 10 mg PO BEDTIME PRN allergies 10/03/24 10/24/24 clopidogrel 75 mg tablet 75 mg PO DAILY 10/03/24 10/24/24 sodium chloride 0.65 % nasal spray 1 spray intranasal DAILY PRN 10/03/24 10/24/24 aerosol Dryness, Congestion, Nasal irrit, Post-nasal drip melatonin 3 mg tablet 3 mg PO BEDTIME PRN Sleep 10/24/24 10/24/24 Previous Rx's ?Medication ?Instructions ?Recorded amlodipine 2.5 mg tablet (Norvasc) 2.5 mg PO DAILY PRN SBP > 160 #90 10/25/24 tabs Allergies Allergy/AdvReac Type Severity Reaction Status Date / Time No Known Allergies Allergy Verified 12/24/24 02:21 Review of Systems 2 Review of Systems: All other systems are reviewed and are negative Constitutional: Reports as per HPI and Reports no additional constitutional complaints Eyes: Reports as per HPI and Reports no additional eye complaints Reports system reviewed and no additional complaints, except as documented Cardiovascular: Reports as per HPI and Reports no additional cardiovascular complaints Respiratory: Reports as per HPI and Reports no additional respiratory complaints Gastrointestinal: Reports as per HPI and Reports no additional gastrointestinal complaints Genitourinary: Reports no additional female genitourinary complaints Musculoskeletal: Reports no additional musculoskeletal complaints Skin/Breast: Reports system reviewed and no additional complaints, except as docu Psychiatric: Reports no additional psychiatric complaints Endocrine: Reports no additional endocrine complaints Hematologic/Lymphatic: Reports no additional hematologic/lymphatic complaints Allergic/Immunologic: Reports no additional allergic/immunologic complaints Reports system reviewed and no additional complaints, except as documented and Reports Abnormal speech present [facility] Past Medical History Medical History Elevated troponin Hypertension Orthostatic hypotension Peripheral neuropathy Gait disorder 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 Hammer toes of both feet Neuropathy Falls frequently Anxious mood Tremors of nervous system Arthritis Hyperlipidemia HTN (hypertension) Atrial fibrillation FH: total knee replacement Pacemaker Surgical History History of hip replacement History of carpal tunnel surgery Family History Family History Mother Dementia Social History Social History Household Members: Other Household Members Other:: daughter and son in law Housing: House Do you presently have visiting nurse or other home services: No Alcohol intake: current Alcohol intake frequency: does not drink Comment: OCCASIONAL Patient Tobacco Use Status: Never used Tobacco Smoked in Last 30 Days: No Use of substances other than those prescribed or required for medical reasons: No Advance Directives: No Advance Directives Information Provided: Yes service: Yes Physical Exam ED Vital Signs: Vital Signs - 24 hr 12/24/24 02:20 12/24/24 03:08 12/24/24 03:26 Temperature 98.4 F Pulse Rate 123 H 98 105 H Respiratory Rate 20 26 H Blood Pressure 185/117 H 152/98 H 153/99 H Pulse Oximetry 97 93 Oxygen Delivery Method Room Air Room Air 12/24/24 03:27 12/24/24 04:09 12/24/24 04:09 Temperature Pulse Rate 105 H 135 H Respiratory Rate Blood Pressure 153/99 H 153/104 H 110/89 Pulse Oximetry Oxygen Delivery Method 12/24/24 05:15 Temperature 97.8 F Pulse Rate 85 Respiratory Rate 19 Blood Pressure 156/103 H Pulse Oximetry 98 Oxygen Delivery Method Room Air BMI result Body Mass Index 25.1 Vital signs have been reviewed and appear to be correct. Blood pressure elevated. Heart rate normal. Respiratory rate normal. Temperature normal. Oxygen saturation normal. Appearance: Alert. Oriented X3. No acute distress. Head: Normal external exam. Normocephalic. Atraumatic. No Ballard signs noted. No raccoon eyes noted Eyes: PERRLA. EOMI. Conjunctiva and sclera normal. Eyelids normal. ENT: TM's Normal. Pharynx normal. Uvula midline. Moist mucous membranes. No trismus noted. No drooling noted. No muffled voice noted. Neck: Normal inspection. Neck supple. FROM. No adenopathy. Thyroid Normal. No meningeal signs. No neck mass noted. CVS: Normal heart rate and rhythm. Heart sound normal. No murmurs noted. Pulses normal throughout. Respiratory: No respiratory distress. Painless inspiration. Breath sounds normal. No wheezes/rales/rhonchi noted. Chest nontender. No accessory muscle usage noted or decreased air movement noted. Abdomen: Soft and nontender. Bowel sounds normal in all 4 quadrants. No distention noted. No organomegaly noted. No visible injury noted. Back: No CVA tenderness. Full range of motion noted. Skin: Skin warm and dry. Normal skin color. Normal skin turgor. No rashes/lesions/lacerations noted. Extremities: Left lower extremity swelling, no tenderness.. Neuro: Oriented X 3. Cranial nerve exam: II-XII are grossly intact No motor deficit. No sensory deficit. Reflexes normal. Course Reevaluation(s) Reevaluation #1: No headache, no CP, no SOB, patient with no complaints now. Blood pressure has improved rule out intervention. No UTI. Patient stable to be discharged home. Time: 06:01 Medications Administered Discontinued Medications Generic Name Dose Route Start Last Admin Trade Name Freq PRN Reason Stop Dose Admin Amlodipine Besylate 2.5 mg 12/24/24 03:07 12/24/24 03:27 Amlodipine Besylate 2.5 Mg Tablet PO 12/24/24 03:08 Not Given ONCE ONE Protocol Medical Decision Making Differential Diagnosis Differential Diagnoses: The differential diagnosis associated with the presentation includes (Hypertension, UTI, ACS, electrolyte derangement, severe anemia, left lower extremity DVT.) Admission/Observation Consideration of admission/observation: Escalation of care including admission/observation considered Lab Data MDM Lab Attestation statement: I reviewed the patient's lab results. 12/24/24 02:56 12/24/24 02:56 Labs: Lab Results 12/24/24 12/24/24 Range/Units 02:35 02:56 WBC 7.4 (4.8-10.8) X10*3/uL RBC 4.37 (4.20-5.50) X10*6/uL Hgb 13.3 (12.0-16.0) g/dl Hct 39.1 (37.0-47.0) % MCV 89.5 (80.0-98.0) fL MCH 30.4 (27.0-33.0) pg MCHC 34.0 (31.0-35.0) g/dl RDW 13.2 (11.0-16.0) % Plt Count 227 (160-400) X10*3/uL MPV 10.7 (9.4-12.3) fL Immature Gran % (Auto) 0.3 (0.0-0.4) % Neut % (Auto) 77.9 H (45-73) % Lymph % (Auto) 11.9 L (20-40) % Screven % (Auto) 7.4 (2-11) % Eos % (Auto) 1.8 (0-4) % Baso % (Auto) 0.7 (0-2) % Lymph # (Auto) 0.9 L (1.2-4.9) X10*3/uL Screven # (Auto) 0.6 (0.1-1.2) X10*3/uL Eos # (Auto) 0.1 (0.0-0.4) X10*3/uL Baso # (Auto) 0.1 (0.0-0.2) X10*3/uL Abs Immat Gran (auto) 0.02 (0.00-0.03) X10*3/uL Absolute Neuts (auto) 5.8 (2.0-8.3) x10*3/uL Absolute Nucleated RBC 0.000 (0.0-0.012) X10*3/uL Nucleated RBC % (auto) 0.0 (0.0-0.2) /100WBC Sodium 136 (135-145) mmol/L Potassium 4.3 (3.3-5.1) mmol/L Chloride 98 (96-108) mmol/L Carbon Dioxide 29 (22-29) mmol/L Anion Gap 13 (12-20) BUN 12 (9-16) mg/dL Creatinine 0.74 (0.5-1.4) mg/dL Estim Creat Clear Calc 54.0 Estimated GFR > 60 Random Glucose 110 (60-115) mg/dL Calcium 9.4 D (8.4-10.2) mg/dL Total Bilirubin 0.6 (0.0-1.0) mg/dL Direct Bilirubin 0.2 (0.0-0.5) mg/dL AST 62 H (5-31) U/L ALT 74 H (0-31) U/L Alkaline Phosphatase 97 (39-117) U/L Troponin I High Sens 9.9 D (<3.5-17.0) ng/L B-Natriuretic Peptide 342 H (<100) pg/mL Total Protein 7.3 (6.5-8.0) g/dL Albumin 4.6 (3.5-5.0) g/dL Lipase 12 (8-78) U/L Urine Color Yellow Urine Appearance Clear Urine pH 8.0 (5.0-9.0) Ur Specific Roundup <= 1.005 (1.005-1.025) Urine Protein Negative (Neg-Trace) mg/dL Urine Glucose (UA) Negative (Negative) mg/dL Urine Ketones Negative (Negative) mg/dL Urine Blood Negative (Negative) Urine Nitrite Negative (Negative) Ur Leukocyte Esterase Negative (Negative) Influenza Type A (PCR) NEGATIVE (Negative) Influenza Type B (PCR) NEGATIVE (Negative) RSV RNA Qual (PCR) NEGATIVE (Negative) SARS-CoV-2 RNA (RT-PCR) NEGATIVE (Negative) Independent Interpretation I performed an independent interpretation of an: Plain X-Ray (Chest: No acute cardiopulmonary abnormality) and Ultrasound (Left lower extremity: No DVT.) Discharge Plan Discharge Clinical Impression: HTN (hypertension), Frequency of urination Patient Disposition: Home, Self-Care Instructions: Hypertension (ED), Urinary Urgency and Frequency (DC) Prescriptions: No Action melatonin 3 mg Tablet 3 mg PO BEDTIME PRN (Reason: Sleep) amlodipine [Norvasc] 2.5 mg tablet 2.5 mg PO DAILY PRN (Reason: SBP > 160) Qty: 90 0RF citalopram 10 mg tablet 10 mg PO DAILY simvastatin 20 mg tablet 20 mg PO DAILY@1800 amiodarone 100 mg tablet 100 mg PO BEDTIME solifenacin 10 mg tablet 10 mg PO BEDTIME polyethylene glycol 3350 [Miralax] 17 gram Powder In Packet 17 g PO DAILY@1800 cholecalciferol (vitamin D3) [Vitamin D3] 125 mcg (5,000 unit) Tablet 125 mcg PO DAILY aspirin 81 mg tablet,delayed release (DR/EC) 81 mg PO DAILY cetirizine 10 mg tablet 10 mg PO BEDTIME PRN (Reason: allergies) clopidogrel 75 mg tablet 75 mg PO DAILY sodium chloride 0.65 % aerosol,spray 1 spray intranasal DAILY PRN (Reason: Dryness, Congestion, Nasal irrit, Post- nasal drip) Referrals: Flex Roque MD [Primary Care Provider] - Print Language: Cambodian
--- NOTE | 2024-12-24 02:30 | ECG_ITS ---
Test Reason : HYPERTENSION Blood Pressure : */* mmHG Vent. Rate : 112 BPM Atrial Rate : 107 BPM P-R Int : * ms QRS Dur : 166 ms QT Int : 434 ms P-R-T Axes : * -69 106 degrees QTcB Int : 592 ms Ventricular-paced rhythm Abnormal ECG When compared with ECG of 24-Oct-2024 00:30, Electronic ventricular pacemaker has replaced Sinus rhythm Vent. rate has increased by 47 bpm Referred By: Sami Nguyen Electronically Signed By: TRU WHITNEY
[2024-12-24 02:41] LABS: Appearance Urine Clear; Color Urine Yellow; Glucose Urine UA Negative (Negative); Leukocyte Esterase Urine Negative (Negative); Nitrite Urine Negative (Negative); Specific Gravity - Urine <= 1.005 (1.005-1.025); Urine Blood Negative (Negative); Urine Ketones Negative (Negative); Urine Protein Negative (Neg-Trace)
[2024-12-24 03:09] LABS: Basophils Absolute Auto 0.1 X10*3/uL (0.0-0.2); Basophils Percent Auto 0.7 % (0-2); Eosinophils Absolute Auto 0.1 X10*3/uL (0.0-0.4); Eosinophils Percent Auto 1.8 % (0-4); Hematocrit 39.1 % (37.0-47.0); Hemoglobin 13.3 g/dl (12.0-16.0); Imm Gran Abs Auto 0.02 X10*3/uL (0.00-0.03); Imm Gran Pct Auto 0.3 % (0.0-0.4); Lymphocytes Absolute Auto 0.9 X10*3/uL (1.2-4.9); Lymphocytes Percent Auto 11.9 % (20-40); MANUAL DIFF FLAG NO; Mean Corpuscular Hemoglobin 30.4 pg (27.0-33.0); Mean Corpuscular Volume 89.5 fL (80.0-98.0); Mean Platelet Volume 10.7 fL (9.4-12.3); Monocytes Absolute Auto 0.6 X10*3/uL (0.1-1.2); Monocytes Percent Auto 7.4 % (2-11); Neutrophils Absolute Auto 5.8 x10*3/uL (2.0-8.3); Neutrophils Percent Auto 77.9 % (45-73); Platelet Count 227 X10*3/uL (160-400); Red Blood Count 4.37 X10*6/uL (4.20-5.50); Red Cell Distribution Width 13.2 % (11.0-16.0); White Blood Count 7.4 X10*3/uL (4.8-10.8)
[2024-12-24 03:27] LABS: Alanine Aminotransferase 74 U/L (0-31); Albumin Level 4.6 g/dL (3.5-5.0); Anion Gap 13 (12-20); Aspartate Amino Transferase 62 U/L (5-31); Bilirubin Direct 0.2 mg/dL (0.0-0.5); Bilirubin Total 0.6 mg/dL (0.0-1.0); Blood Urea Nitrogen 12 mg/dL (9-16); Calcium 9.4 mg/dL (8.4-10.2); Carbon Dioxide 29 mmol/L (22-29); Chloride 98 mmol/L (96-108); Estimated Glomerular Filt Rate > 60; Glucose Random 110 mg/dL (60-115); Lipase 12 U/L (8-78); Potassium 4.3 mmol/L (3.3-5.1); Sodium 136 mmol/L (135-145); Total Protein 7.3 g/dL (6.5-8.0)
[2024-12-24 03:29] LABS: Alkaline Phosphatase 97 U/L (39-117)
[2024-12-24 03:33] LABS: Troponin-I High Sensitivity 9.9 ng/L (<3.5-17.0)
--- NOTE | 2024-12-24 03:38 | ECG_ITS ---
Test Reason : Tachycardia Blood Pressure : */* mmHG Vent. Rate : 98 BPM Atrial Rate : 249 BPM P-R Int : * ms QRS Dur : 94 ms QT Int : 412 ms P-R-T Axes : * -29 35 degrees QTcB Int : 525 ms Atrial flutter with variable A-V block Nonspecific ST and T wave abnormality Abnormal ECG When compared with ECG of 24-Dec-2024 02:41, Atrial flutter has replaced Electronic ventricular pacemaker Referred By: Sami Nguyen Electronically Signed By: TRU WHITNEY
[2024-12-24 03:46] LABS: Influenza A PCR NEGATIVE (Negative); Influenza B PCR NEGATIVE (Negative); Resp Syncy Virus RNA Qual PCR NEGATIVE (Negative); SARS COV2 PCR INHOUSE NEGATIVE (Negative)
[2024-12-24 04:22] LABS: B Type Natriuretic Peptide 342 pg/mL (<100)
--- NOTE | 2024-12-24 07:18 | PC.NURSE ---
Pt is alert/oriented. Sitting upright on bed. Dressed. Awaits ambulance back to [facility]. Offers no complaints at this time
--- NOTE | 2024-12-24 07:41 | MHC.EDTECH ---
@7AM LANGUAGE TUTOR RN ASKED FOR AMB BOOK BACK TO [facility], THE FACILITY SAID THE PT NEEDS TO COME BACK BY AMB PER RN. PT STS SHE DOES NOT LIVE THERE AND IS JUST STAYING THERE WHILE FAMILY AWAY ON VACATION. @1443 [facility] CALLED FOR TRANSPORT BY T/W, 08:30 ETA GIVEN BY [facility]E.
== END 2024-12-24 08:58 | disposition home or self-care (01) ==
PROVIDERS: Emergency Provider Emergency Medicine; PCP Pediatrics
DX: R35.89 Other polyuria (principal); R35.0 Frequency of micturition; R60.0 Localized edema; R06.02 Shortness of breath; R00.0 Tachycardia, unspecified; Z03.818 Encounter for observation for suspected exposure to other biological agents ruled out; Z79.899 Other long term (current) drug therapy
CPT/HCPCS: 0241U; 71045; 80048; 80076; 81003; 83690; 83880; 84484; 85025; 93005; 93971; 99284

== ENCOUNTER → 2024-12-24 02:30 | Outpatient (BNV) | payer MEDICARE, OTHER, SELFPAY | PROVIDERS: Emergency Provider Emergency Medicine; Visit Provider Radiology Diagnostic Radiology | DX: R22.42 Localized swelling, mass and lump, left lower limb (principal); I10 Essential (primary) hypertension | CPT/HCPCS: 71045 ==

== ENCOUNTER → 2024-12-24 03:38 | Outpatient (BNV) | payer MEDICARE, OTHER, SELFPAY | PROVIDERS: Emergency Provider Emergency Medicine; PCP Pediatrics; Visit Provider Internal Medicine | DX: R94.31 Abnormal electrocardiogram [ECG] [EKG] (principal); Z95.0 Presence of cardiac pacemaker; I48.92 Unspecified atrial flutter; I44.0 Atrioventricular block, first degree | CPT/HCPCS: 93010 ==

== ENCOUNTER 2025-01-08 12:01 | Outpatient (REF) | payer MEDICARE, OTHER, SELFPAY ==
[2025-01-08 12:38] LABS: Osmolality Urine 289 mosm/kg (373-1093)
--- OUTSIDE RECORDS SUMMARY | 2025-01-08 13:17 | XMS_ITS | Data Portability ---
Author Organization [place] - .[employer] [facility], [place] Address [address] [place] [id number] Assessment No assessment recorded. Plan of Treatment Reminders Order Date Submit Date Provider Last Modified By Organization Details Last Modified Time Details Appointments None recorded. Lab None recorded. Referral None recorded. Procedures None recorded. Surgeries None recorded. Imaging None recorded. Medication Orders erythromy dominick 5 mg/gram (0.5 %) eye ointment 2022 023 [email or web address] [id number], [address], [place], [address], 07:16:14 Patient TargetsNo targets recorded. Patient Instructions Encounter Date Encounter Id Patient Instructions Last Modified By Organization Details Last Modified Time 01/04/2023 [id number] A healthy lifestyle: care instructions jessica Not available 01/06/2023 07:16:14 Thank you for visiting [facility]. There are two ways to view your lab results: ? 1. ? ? ? The [employer] mohinder is available to all patients 18 and older in the Moh[employer] Store and [employer]. First-time mohinder users will need to create an account; please note you? l l need to select a login and password for the mohinder versus just using your patient portal login credentials. Your lab results will be posted to the [employer] mohinder as soon as they? r e available. ? 2. ? ? ? Via email , as soon as lab results are available. If you don? t receive an email within the estimated time frame, give our Aftercare team a call at [phone]. warm compresses every 1--2 hours while awake Stye Your Care Instructions: Styes and chalazia (say poo-FUG-ngc- ) are both conditions that can cause [...] Address Organization Details Recorded Time Hypertensive disorder [id number] Active 2022 JOSEPH Cassidy - .[facility] 10:45:45 Seizure [id number] Active 2022 JOSEPH Cassidy - .[facility] 10:46:06 Chronic urticaria 11878828 Active 2022 JOSEPH Cassidy - .[facility] 10:46:31 Problem Notes None recorded. Medical Equipment [...] 143 mm[Hg] 87 mm[Hg] Chhaya RUIZ - .[facility] 10:13:32 Social History Question [...] SNOMED-CT Code Diagnosis ICD10 Code Diagnosis Note [id number] Nabor Owens MD [facility] [address] [place] [address] 01/04/2023 09:48:43 01/04/2023 10:49:05 Hordeolum externum of upper eyelid of right eye [id number] H00.011 Health Concerns Section Related Observation LastModified by Organization Detai ls LastModified Time None Recorded Concern Status LastModified by Organization Details LastModified Time None Recorded Advance Directives Directive None Recorded Payers Insurance Date Sequence Insurance Name Policy Number Policy Vieyra Covered Member ID Vieyra Member ID Guarantor Name 01/04/2023 2 FOR LIFE () Kaci Huff [id number] Kaci Huff 01/04/2023 1 [place]ARE) Kaci Hernanedz [id number] Kaci [facility] Notes Date Note Type Note Provider Name [...] warm compresses which helped. JOSEPH Antonio - .[facility] 01/04/2023 10:54:43 OBGyn Episode No OBEpisode recorded.
--- OUTSIDE RECORDS SUMMARY | 2025-01-08 13:17 | XMS_ITS | Clinical Summary ---
Author Organization [facility] Address [address] [place] [id number] Care Team Providers Care Body Stylist Name Role Phone May Roque MD Primary Care Provider [phone] Allergies No known active allergies Medications Cholecalciferol (D 5000) 125 MCG (5000 UT) [...] mouth. 11/30/2020 Active cephalexin (KEFLEX) 500 MG capsuleIndicati ons:Acute cystitis with hematuria Take 1 capsule (500 mg total) by mouth 3 (three) times a day. 21 capsule 12/22/2020 Active Active Problems No known active problems Social History Tobacco Use Types Packs/Day Years Used Date Smoking Tobacco: Never Assessed Comments Unknown Sex and Gender Information Value Date Recorded Sex Assigned at Not on file Legal Sex Female 9:25 AM EST Gender Identity Not on file Sexual Orientation [...] Patients (1 - 1-dose 75+ series) 2014 COVID-19 Vaccine (2023-2 5 season) 2024 10/31/2020, 10/09/2020 Influenza Vaccine 04/04/2025 05/14/2020, 06/10/2019 Hepatitis B Vaccines Aged Out No long er eligible based on patient's age to complete this topic Insurance MEDICARE PART A & B FOR LIFE MEDICARE PART A & B FOR LIFE Care Teams Body Stylist Relationship Specialty Start Date End Date May Roque MD [address] [place] [address] PCP - General Pediatric, General 05/13/20
--- OUTSIDE RECORDS SUMMARY | 2025-01-08 13:17 | XMS_ITS | Continuity of Care Document ---
Author Name [facility] Organization [facility] Care Team Providers Care Stone Setter Apprentice Name Role Phone [facility] Unavailable Unavailable Problems Combined list of problems from Department of Defense and Veterans Affairs facilities. It does not include entries that were removed or entered in error. Problem Status Onset Date Problem Type Date of Resolution Comments Source Vaccines Prophylactic Need Against Influenza Inactive Condition [facility] Medications Combined list of outpatient medications from Department of Defense and Veterans Affairs facilities.Medications provided include 1) outpatient medications from the last 15 months, and 2) patient-reported medications. Medication Details Route Status Patient Instructions Prescription Expires Prescription Number Last Dispense Date Ordering Provider Order Date Order Qty Source CEPHALEXIN (CEPHALEXIN MONOHYDRATE ), 500MG, CAPSULE, ORAL, TEVA [place], 500 ea. BOTTLE Active [id number] 4 2023 21 Pharmac y Data Transac tion Service Facilit y CITALOPRAM HBR (CITALOPRAM HYDROBROMID E), 10MG, TABLET, ORAL, MYLAN, 500 ea. BOTTLE Cancele d [id number] : 2023 0 Pharmac y Data Transac tion Service Facilit y CITALOPRAM HBR (CITALOPRAM HYDROBROMID E), 10MG, TABLET, ORAL, MYLAN, 500 ea. BOTTLE Active [id number] 4 2023 90 Pharmac y Data Transac tion Service Facilit y SOLIFENACIN SUCCINATE (solifenaci n succinate), 10 MG, TABLET, ORAL, APOTEX CLAY, 30 ea. BOTTLE Active [id number] 4 2023 20 Pharmac y Data Transac tion Service Facilit y SOLIFENACIN SUCCINATE (solifenaci n succinate), 10 MG, TABLET, ORAL, AVKARE, 90 ea. BOTTLE Active [id number] 4 2023 90 Pharmac y Data Transac tion Service Facilit y XARELTO (RIVAROXABA N), 20 MG, TABLET, ORAL, CINTHIA PHARM., 90 ea. BOTTLE Active [id number] 4 2023 90 Pharmac y Data Transac tion Service Facilit y Allergies, Adverse Reactions, Alerts Combined list of allergies from Department of Defense and Veterans Affairs facilities. It does not include entries that were removed or entered in error. Substance Category Reaction Severity Reaction type Status Date Reported Comments Source CODEINE Drug allergy (disorder) Unknown active 06/17/2005 [facility] Immunizations Combined list of available immunizations from the Department of [facility] and Veterans Affairs facilities. Immunization Series Date Given Administered By Site Reaction Lot Number CVX Code Drug Wildlife Conservation Officer Status Comments Source Influenza vaccine, quadrivalent, adjuvanted 2020 BOGDASARIADOLFO, () Not Given Influenza vaccine, quadrival ent, adjuvante d [facility] COVID-19, mRNA, LNP-S, PF, 30 mcg/0.3 mL dose 2020 WESTLEY [employer] [place] (PFR) Not Given COVID-19, mRNA, LNP-S, PF, 30 mcg/0.3 mL dose [facility] zoster vaccine, live 1 2014 SIMBA SANTAMARIA [id number] Merck (MSD) complet ed zoster vaccine, live DoD influenza virus vaccine, split virus (incl. purified surface antigen)-reti red CODE 1 2007 Unknown, Provider [id number] [employer] (SKB) complet ed influenza virus vaccine, split virus (incl. purified surface antigen)- retired CODE DoD Encounters Combined list of: 1) Encounters from [facility] facilities going backup to the last 18 months, not all [place] inpatient encounters are included; 2) Encounters from the Department of [facility] facilities going backup to 280 months. Location Location Details Encounter Type Encounter Number Reason For Visit Attending Provider ADM Date DC Date Status Disposition Source [place], [place](Preven tive Medicine) OUTPATIENT [id number] Immuniz ation. MAY MARCANO 07/02 Released w/o Limitations [place], [place](Prev entive Medicin e) Procedures Combined list of: 1) Procedures from [facility] of [facility] facilities going back up to thelast 18 months, not all [place] non-surgical procedures are included; 2) All procedures from the Department of Defense facilities. Procedure Procedure Type Code Date Perfomer Comments Sourc e INFLUENZA VIRUS VACCINE, TRIVALENT (IIV3), SPLIT VIRUS, 0.5 ML DOSAGE, FOR INTRAMUSCULAR USE 07/02/2008 [facility] INFLUENZA VIRUS VACCINE, TRIVALENT (IIV3), SPLIT VIRUS, 0.5 ML DOSAGE, FOR INTRAMUSCULAR USE 06/17/2005 [facility] INFLUENZA VIRUS VACCINE, TRIVALENT (IIV3), SPLIT VIRUS, 0.5 ML DOSAGE, FOR INTRAMUSCULAR USE 08/03/2004 [facility] Influenza Split Virus Vaccine Age 3+ Years Intramuscular 07/02/2008 MASON SOTO [facility] Immunization Administration One Vaccine Immunization Administration One Vaccine [id number] 07/02/2008 [facility] S[facility] Social History Combined list of available smoking, tobacco, and other social history from Department of Defense and Veterans Affairs facilities. Social History Type Response Date Comment [facility] e This section is an empty social history section. [facility]
== END 2025-01-08 12:02 | disposition home or self-care (01) ==
LOC: HO.LNP 12:01
PROVIDERS: Visit Provider Pediatrics
DX: R42 Dizziness and giddiness (principal)
CPT/HCPCS: 83935